=== PATIENT | female | born 1960 | race Caucasian/White ===

== ENCOUNTER 2017-10-17 17:04 | Emergency (ER) | payer MEDICARE, MEDICAID ==
[~2017-10-17 17:04] MED LIST changes: -DOCU-202 PO
[2017-10-17 17:05] VITALS: BP 130/90
--- NOTE | 2017-10-17 17:08 | ER Report ---
History and Physical Time Seen By MD: 17:01 Hx. of Stated Complaint: Patient reporting a migraine for 4 days. HPI/ROS CC: Migraine HPI: 57-year-old female well-known to the emergency Department with a past medical history of migraine myalgia, vasovagal syncope, depression, diabetes, morbid obesity, GERD, osteoarthritis, cellulitis, hypothyroid, patient presents to the emergency department with a migraine by 4 days per EMS. She states that her migraine is a 9 out of 10. She states that the only thing that relieves her migraine as Dilaudid and Phenergan. There are no bleeding factors. Activity makes it worse light makes it worse sound makes it worse spells makes it worse ROS: 12 point review of systems essentially negative other than what's mentioned in history of present illness. NURSES AND OLD MEDICAL RECORDS: Reviewed PMH: Reviewed SURGICAL HX: Reviewed FAMILY HX: Noncontributory SOCIAL HX: Patient denies illicit drugs lives at home. VITAL SIGNS: Reviewed CONSTITUTIONAL: 57-year-old female in minimal distress PHYSICAL EXAM: HEENT: Pupils equal round reactive to light and accommodate, Lips dry mucous membranes moist gums nonbleeding uvula midline and rises equally with phonation. NECK: Neck supple, thyroid not appreciated. Trachea midline and rises equally with phonation. CARDIAC: S1-S2 regular rate rhythm no murmurs rubs or gallops. LUNGS: Lungs clear bilaterally posteriorly in all barrios. Good air movement. ABDOMEN: Abdomen soft, nondistended, bowel sounds active in all 4 quadrants. MUSCULOSKELETAL: Strength 5 out of 5 x 4 extremities, no deformities noted. NEUROLOGIC: Patient alert and oriented by 3 Allergies: Coded Allergies: ketorolac (Verified Allergy, Intermediate, MADE SYMTOMS WORSE, 07/10/17) NSAIDS (Non-Steroidal Anti-Inflamma (Verified Allergy, Mild, Vomiting, ) butorphanol (Verified Allergy, Mild, facial burning, 07/10/17) morphine (Verified Allergy, Unknown, 07/10/17) phenazopyridine HCl (Verified Allergy, Unknown, 07/10/17) sumatriptan succinate (Verified Allergy, Unknown, 07/10/17) Home Meds Active Scripts Duloxetine Hcl (CYMBALTA) 60 Mg Capsule., 1 CAP PO QDAY, #90 CAP 1 Refill Prov:SHERON PEARL APRN [employer]-[facility] 10/10/17 Tizanidine Hcl (TIZANIDINE HCL) 4 Mg Tablet, 1 TAB PO TID Y for MUSCLE SPASMS, # 90 TAB 0 Refills Prov:SHERON PEARL APRN 10/10/17 Levothyroxine Sodium (LEVOTHYROXINE SODIUM) 25 Mcg Tablet, 1 TAB PO QDAY, #90 TAB 1 Refill Prov:SHERON PEARL APRN 10/10/17 Tramadol Hcl (TRAMADOL HCL) 50 Mg Tablet, 1 TAB PO Q4-6H Y for PAIN, #30 TAB 0 Refills Prov:ALEXANDRE CARSON MD 10/01/17 Insulin Glargine,Hum.rec.anlog (LANTUS SOLOSTAR) 100 Unit/1 Ml Insuln.pen, 40 UNIT SQ QAM, #1 BOX 10 Refills Prov:SHERON PEARL APRN 09/30/17 Gabapentin (GABAPENTIN) 600 Mg Tablet, 1 TAB PO BID, #180 TAB 2 Refills Prov:SHERON PEARL APRN 09/30/17 Quetiapine Fumarate (SEROQUEL) 200 Mg Tablet, 1 TAB PO QHS, #90 TAB 0 Refills Prov:SHERON PEARL APRN 08/18/17 Omeprazole (OMEPRAZOLE) 40 Mg Capsule.dr, 1 CAP PO BID, #60 CAP 3 Refills Take 1 capsule twice every day 1/2 hour before eating. Prov:ALEXANDRE CARSON MD 07/02/17 Blood Sugar Diagnostic (BLOOD GLUCOSE TEST STRIP) 1 Each Strip, 1 STRIP MC DAILY , #30 BOT 4 Refills Prov:SHERON PEARL APRN 06/02/17 Metformin Hcl (METFORMIN HCL) 500 Mg Tablet, 1 TAB PO BID, #180 TAB 1 Refill Prov:SHERON PEARL APRN 05/26/17 Spironolactone (SPIRONOLACTONE) 25 Mg Tablet, 1 TAB PO DAILY, #90 TAB 3 Refills Prov:SHERON PEARL APRN 03/27/17 Nystatin 100,000 Unit/Gm Top Powder (NYSTATIN 100,000 UNIT/GM TOP POWDER) 15 Gm Powder, 1 AN TP TID, #120 GM 1 Refill apply to perineum 3 times daily until resolved. Follow up if not improved in 2 weeks. Prov:SHERON PEARL APRN 02/21/17 Ondansetron (ZOFRAN ODT) 4 Mg Tab.rapdis, 1 TAB SL Q12H Y for nausea / migraine , #10 TAB.MARTIN 0 Refills Prov:SHERON PEARL APRN 11/01/16 Oxybutynin Chloride (OXYBUTYNIN CHLORIDE) 5 Mg Tablet, 1 TAB PO BID, #180 TAB 2 Refills Prov:SHERON PEARL APRN 09/11/16 Reported Medications Lamotrigine (LAMOTRIGINE) 100 Mg Tablet, 1 TAB PO DAILY 10/10/16 Topiramate (TOPIRAMATE) 100 Mg Tablet, 1 TAB PO DAILY 10/10/16 Psyllium Husk (Metamucil) 3.4 Gram/5.4 Gram Powder, 1 CAP PO QDAY 06/08/16 Discontinued Scripts Meloxicam (MELOXICAM) 7.5 Mg Tablet, 1 TAB PO BID, #60 TAB 11 Refills Prov:SHERON PEARL APRN 08/27/17 Hx Smoking: Yes (7-10 CIGS QDAY) Smoking Status: Current: Every Day Smoker Exposure to Second Hand Smoke?: Yes Hx Substance Use Disorder: Yes Hx Alcohol Use: No Constitutional Vital Sign - Last 24 Hours 10/17/17 17:05 Temp 97.8 Pulse 89 Resp 18 B/P (MAP) 130/90 Pulse Ox 93 O2 Delivery Room Air Medical Decision Making ED Course/Re-evaluation ED Course I reassessed again delivery note that the patient is initially reluctant on 07/2016 stating that we will not treat her chronic condition of migraines in the emergency department. Patient will plan and in agreement. She is to follow up with her PCP. Decision to Disposition Date: Oct 17, 2017 Decision to Disposition Time: 17:15 Depart Departure Latest Vital Signs Vital Signs Date Time Temp Pulse Resp B/P (MAP) Pulse Ox O2 Delivery O2 Flow Rate FiO2 10/17/17 17:05 97.8 89 18 130/90 93 Room Air Impression: Primary Impression: Drug-seeking behavior Condition: Condition Unchanged Disposition: HOME OR SELF-CARE Referrals: SHERON PEARL APRN (PCP) Patient Instructions: Migraine Headache (ED) Additional Instructions: Follow-up with regular physician for chronic pain medication. I am sorry but you have received a letter stating that we cannot continue to treat your chronic condition migraines. I and the staff wanted to thank you for allowing us to take care of your needs today in the emergency department at [facility]. We have tried to answer all of your questions and concerns. Please feel free to return to the emergency department for any further concerns or unanswered questions. KAYLEEN MCNULTY MD Oct 17, 2017 17:08
[2017-10-17] MEDS ORDERED: PROMETHAZINE 25 MG/ML 1 ML AMP IVP ONE (17:10)
[2017-10-17] MEDS ORDERED: HYDROmorphone(ER ONLY) 1 MG/ML IVP ONE (17:10)
== END 2017-10-17 17:29 | disposition home or self-care (01) ==
LOC: ER 17:10
DX: Z76.5 Malingerer [conscious simulation] (principal)
CPT/HCPCS: 99281

== ENCOUNTER → 2017-10-17 | Outpatient (CLI) | payer MEDICARE, MEDICAID ==
[~2017-10-17] MED LIST: ADV100/50 INH; ALB0.5 INH; AMOX-559 PO; ASP325 PO; ASP81 PO; ASPI81TA94 PO; ASPIRIN 81MG PO; BISA-229 PO; BLOO-1037 MC; BUTA1CAP4 PO; BUTA1TAB14 PO; CEP500 PO; CEPH250C37 PO; CEPH500C24 PO; CIT20 PO; CITA-139 PO; CITA-141 PO; CITA-156 PO; CLO10 MT; CYC10 PO; CYCL10TA29 PO; DIAZ-308 PO; DICL-192 PO; DICL100G3; DOCU-202 PO; DUL20 PO; DULO60CA56 PO; DULO60CA7; FENO48TA PO; FLU150 PO; FLUT9.9S; FUR20 PO; FUR40 PO; GAB300 PO; GABA-1 PO; GABA-503 PO; GABA-549 PO; GOLYTE PO; HYDR-3140 PO; HYDR-3250 PO; HYDR-4309 PO; IBU600 PO; IBUP600T22 PO; INSU100I30 SQ; KET10 PO; LAMO100T52 PO; LAMO25TA64 PO; LEVO25TA61 PO; LEVO500T83 PO; LOP2 PO; LOPE-111 PO; LOPE2CAP39 PO; LOR5 PO; LOR5/325 PO; LURA20TA PO; MECL-205 PO; MELO-150 PO; MELO-205 PO; MELO-207 PO; MET500 PO; METF-410 PO; METH4TAB66 PO; METO25 PO; MIR PO; MULT-27 PO; MULT-820 PO; MULT1CAP41 PO; MULTIVITAMIN; MYLL PO; NAPR500T75 PO; NIC10R IH; NICO1PAT86 TD; NICO1PAT87 TD; NIT4 SL; NOR25; NOR25 PO; NYST15PO4 TP; OLA5 PO; OLAN10TA19 PO; OMEP-125 PO; OMEP-218 PO; OMEP40CA48 PO; ONDA-153 SL; ONDA4TAB SL; ORP100 PO; OXYB5TAB86 PO; OXYC-763 PO; OXYC-865 PO; OXYC20TA86 PO; OXYGEN INH; PAN40 PO; PAR20 PO; PARO20TA4 PO; PENI-22 PO; PER PO; PHEN15CA69 PO; POTA2.5T7 PO; POTASSIUM SUPPLEMENT PO; POTT20 PO; PRO25 PO; PROTONIX PO; PSYL660P5 PO; QUE100 PO; QUET200T; QUET200T29 PO; RAM8 PO; SIM10 PO; SPI25 PO; SPIR25TA78 PO; SPIR50TA31 PO; SULF-198 PO; TIZA-128 PO; TOP100 PO; TOPI-28 PO; TOPI100T PO; TOPI100T92 PO; TOPI50TA99 PO; TRA50 PO; TRAM-420 PO; VAR1 PO; WALK1EAC MC; [UNRECOGNIZED DRUG - CODE]; [UNRECOGNIZED DRUG - CODE] PO; [UNRECOGNIZED DRUG - CODE] PO; [UNRECOGNIZED DRUG - REMARK]; [UNRECOGNIZED DRUG - SUPPLY]
== END ==
LOC: AMB 16:43
PROVIDERS: ATTEND Nurse Practitioner
DX: G43.909 Migraine, unspecified, not intractable, without status migrainosus (principal)
CPT/HCPCS: A0425; A0427

== ENCOUNTER 2017-10-23 00:38 | Observation (INO) | payer MEDICARE, MEDICAID ==
[2017-10-23] VITALS (11 sets, daily range): BP systolic 97–157; BP diastolic 53–129
[~2017-10-23] VITALS: Ht 167.6 cm; Wt 134.0 kg
[2017-10-23] MEDS ORDERED: NORMOSOL R SOLN(*) 1000 ML BAG 1,000 ML IV PRN (09:30)
[2017-10-23] MEDS ORDERED: FAMOTIDINE 20 MG TAB PO ONE (09:30)
[2017-10-23] MEDS ORDERED: LIDOCAINE/SOD BICARB 8.4% SYR ID ONE (09:30)
[2017-10-23] MEDS ORDERED: ceFAZolin(*) 1 GM VIAL 1 GM in NS(*) 0.9% 100 ML ADDVANT BAG 100 ML IVPB ONE (09:30)
[2017-10-23] MEDS ORDERED: ceFAZolin 1 GM VIAL IVP ONE (09:30)
[2017-10-23] MEDS ORDERED: fentaNYL CITR 250 MCG/5 ML AMP ONE (10:23)
[2017-10-23] MEDS ORDERED: PROPOFOL EMUL(*) 10MG/ML 20 ML 20 ML ONE (10:24)
[2017-10-23] MEDS ORDERED: LIDOCAINE 2% IV 100 MG/5ML SYR ONE (10:28)
[2017-10-23] MEDS ORDERED: fentaNYL CITR 100 MCG/2 ML AMP ONE ×4 (10:48→14:44)
[2017-10-23] MEDS ORDERED: ROPIVACAINE 0.5% 20 ML VIAL ONE (11:25)
[2017-10-23] MEDS ORDERED: MIDAZOLAM 2 MG/2 ML VIAL ONE (11:33)
[2017-10-23] MEDS ORDERED: ceFAZolin(*) 2GM/D5W 50ML 50 ML IVPB ONE (11:37)
[2017-10-23] MEDS ORDERED: ROCURONIUM BROM 10 MG/ML 10 ML ONE (11:45)
[2017-10-23] MEDS ORDERED: ONDANSETRON 4 MG/2 ML VIAL ONE (12:41)
[2017-10-23] MEDS ORDERED: SUGAMMADEX SOD 500 MG/5 ML SDV ONE (12:41)
[2017-10-23] MEDS ORDERED: NS(*) 0.9% 1000 ML BAG 1,000 ML IV PRN (14:22)
[2017-10-23] MEDS ORDERED: ONDANSETRON 4 MG/2 ML VIAL IVP PRN (14:25)
[2017-10-23] MEDS ORDERED: FLUSH 10 ML SYR IVP PRN (14:25)
[2017-10-23] MEDS ORDERED: MORPHINE 4 MG/ML SYR IVP PRN (14:25)
[2017-10-23] MEDS ORDERED: DEXAMETHASONE SOD 4 MG/ML VIAL ONE (14:38)
--- NOTE | 2017-10-23 14:42 | Post Operative Progress Note ---
Post Operative Progress Note Date: Oct 23, 2017 Time: 14:31 Surgeon: Denise Dictation number: [id number] Anesthesia: GETA by Dr. An Pre-Op Diagnosis: Symptomatic Large Umbilical Hernia Post-Op Diagnosis: LENORA Findings: C/W dx Procedure(s): Robotic umbilical hernia repair with mesh Robotic lysis of adhesions Specimen Removed:(May be N/A): None Complications: None Fluids: See anesthesia record Estimated Blood Loss: Minimal Date OP Note Dictated: Oct 23, 2017 Time OP Note Dictated: 14:33 ALEXANDRE CARSON MD Oct 23, 2017 14:42
[2017-10-23] MEDS: MORPHINE 4 MG/ML SYR IVP PRN (16:03)
[2017-10-23] MEDS: INSULIN HUM LISPRO 100 UN/ML 3 ML VIAL SUBQ PRN ×2 (17:29→21:17)
--- NOTE | 2017-10-23 18:41 | OPERATIVE REPORT 1 ---
EVENT DATE: October 23, 2017 SURGEON: Hosea Walker MD ANESTHESIOLOGIST: Heriberto An MD ANESTHESIA: General endotracheal anesthesia. PREOPERATIVE DIAGNOSIS Large symptomatic umbilical hernia. POSTOPERATIVE DIAGNOSIS Large symptomatic umbilical hernia. PROCEDURES PERFORMED 1. Robotic umbilical hernia repair with mesh. 2. Robotic lysis of adhesions. COMPLICATIONS None. CONDITION Stable. BLOOD LOSS Minimal. FINDINGS The patient had previous mesh in her ventral midline that appeared to be in good position without a recurrence of her hernia. She did have a just under 2 cm diameter fascial defect at the umbilicus which was a circular defect, and it contained only omental fat which was all reduced. No other abnormalities were found. SPECIMENS None. INDICATIONS This is a 57-year-old female who presented to my office with a bulge at her umbilicus. It was fairly large and painful. It was consistent with an umbilical hernia, and she was requesting to have it repaired. Due to her severe morbid obesity, we have elected to fix this robotically so as to try to minimize the risk of recurrence. DESCRIPTION OF PROCEDURE The patient was brought to the operating room and placed supine on the operating table. General endotracheal anesthesia was administered, and her abdomen was prepped and draped in a sterile fashion. A timeout was completed. I injected the left subcostal skin in the mid clavicular line with 0.5% ropivacaine plain. I made an 8 mm incision and then used the Veress needle with insufflation hooked up and running. I introduced the Veress needle into her abdominal cavity without any problems. I insufflated the abdomen to a pressure of 15 mmHg and then removed the Veress needle. I inserted a 5 mm zero- degree scope through an 8 mm optical trocar and inserted the trocar into the belly under direct visualization without any problems. Next, I inserted two more 8 mm ports in the left mid abdomen and the left lower quadrant. I then switched over to the robotic camera, docked the robot, and then after good positioning, I was able to insert a ProGrasp into the inferior 8 mm port, the camera into the middle 8 mm port, and hot scissors in the left upper quadrant port. After robot was docked and everything was positioned well, I scrubbed out and went to the console. I noticed adhesions all the way in her ventral midline to the mesh, which I took down easily with scissors. It was only fat, and no bowel. Once all the adhesions were taken down, I was able to pull the fat out of the umbilical hernia which took some doing because it was under resistance, jammed into it, and not reducible. After this was done, I divided the peritoneum on all sides of the umbilical defect and stripped the peritoneum away, including the hernia sac. I then measured the defect which was just under 2 cm in diameter. I then closed the fascial defect with running V-Loc sutures and then obtained a 6 cm round piece of omega-3 coated C-QUR mesh and put it into the abdomen. I had to upsize the left upper quadrant port to a 12 mm port in order to get the mesh into the abdomen, and then I deployed it so that the omega side was down, exposed to the abdominal cavity, and the mesh side was up against the abdominal wall. I then sewed it in circumferentially with V-Loc suture. It laid nice and flat and covered up the defect which was closed with the sutures with several centimeters of overlap on all sides. After this was done, I then removed the robotic instruments, scrubbed back in, and then used a suture passer to pass 0 Vicryl suture through the fascia in the left upper quadrant 12 mm port site and used a [id number] configuration of the suture. I tied this down with good reapproximation of the fascia. I then closed the skin at each port site with 4-0 Monocryl running subcuticular sutures. The skin was cleaned and dried, and Steri-Strips were applied, followed by sterile surgical dressings. The patient was awakened and extubated in the operating room and transported to the recovery room in stable condition having tolerated the procedure without any apparent problems. Because of her body habitus, I did place an extra, extra large abdominal binder around her abdomen to help bolster the repair while it is healing. GLENYS
[2017-10-23] MEDS: DOCUSATE SODIUM 100 MG CAP PO SCH (21:00)
[2017-10-23] MEDS ORDERED: QUEtiapine FUM 100 MG TAB PO SCH (21:00)
[2017-10-23] MEDS: metFORMIN HCL 500 MG TAB PO SCH (21:12)
[2017-10-23] MEDS: GABAPENTIN 300 MG CAP PO SCH (21:13)
[2017-10-23] MEDS: OXYBUTYNIN CHL 5 MG TAB PO SCH (21:13)
[2017-10-23] MEDS: NYSTATIN 100,000 U/GM PWD 15GM TP SCH (21:14)
[2017-10-24] MEDS: MORPHINE 4 MG/ML SYR IVP PRN (04:14)
[2017-10-24] MEDS ORDERED: LEVOTHYROXINE SOD 0.025 MG TAB PO SCH (06:00)
[2017-10-24 06:03] VITALS: BP 121/86
[2017-10-24] MEDS ORDERED: DOCU-202 PO (06:45)
[2017-10-24] MEDS ORDERED: PER PO (06:45)
--- NOTE | 2017-10-24 06:50 | Short(Outpt) Discharge Summary ---
Discharge Summary Reason for Hosp/Final Diag: (1) Umbilical hernia Status: Chronic Hospital Course & Plan: 10/24/17: POD#1 s/p robotic repair of large incarcerated [facility]. Doing well. Will d/c to home this morning. Departure Discharge to: Home, Self Care Discharge Instructions Home Meds Active Scripts Oxycodone/Acetaminophen (OXYCODONE/ACETAMINOPHEN 5MG/325 MG) 5 Mg/325 Mg Tab, 1- 2 TAB PO Q4H Y for MODERATE PAIN, #30 TAB 0 Refills Prov:ALEXANDRE CARSON MD 10/24/17 Docusate Sodium (DOCUSATE SODIUM) 100 Mg Capsule, 1 CAP PO BID, #30 CAPSULE 0 Refills Prov:ALEXANDRE CARSON MD 10/24/17 Duloxetine Hcl (CYMBALTA) 60 Mg Capsule.dr, 1 CAP PO QDAY, #90 CAP 1 Refill Prov:SHERON PEARL APRN 10/10/17 Tizanidine Hcl (TIZANIDINE HCL) 4 Mg Tablet, 1 TAB PO TID Y for MUSCLE SPASMS, # 90 TAB 0 Refills Prov:SHERON PEARL APRN 10/10/17 Levothyroxine Sodium (LEVOTHYROXINE SODIUM) 25 Mcg Tablet, 1 TAB PO QDAY, #90 TAB 1 Refill Prov:SHERON PEARL APRN-C 10/10/17 Tramadol Hcl (TRAMADOL HCL) 50 Mg Tablet, 1 TAB PO Q4-6H Y for PAIN, #30 TAB 0 Refills Prov:ALEXANDRE CARSON MD 10/01/17 Insulin Glargine,Hum.rec.anlog (LANTUS SOLOSTAR) 100 Unit/1 Ml Insuln.pen, 40 UNIT SQ QAM, #1 BOX 10 Refills Prov:SHERON PEARL APRN 09/30/17 Gabapentin (GABAPENTIN) 600 Mg Tablet, 1 TAB PO BID, #180 TAB 2 Refills Prov:SHERON PEARL APRN 09/30/17 Quetiapine Fumarate (SEROQUEL) 200 Mg Tablet, 1 TAB PO QHS, #90 TAB 0 Refills Prov:SHERON PEARL APRN 08/18/17 Omeprazole (OMEPRAZOLE) 40 Mg Capsule.dr, 1 CAP PO BID, #60 CAP 3 Refills Take 1 capsule twice every day 1/2 hour before eating. Prov:ALEXANDRE CARSON MD 07/02/17 Blood Sugar Diagnostic (BLOOD GLUCOSE TEST STRIP) 1 Each Strip, 1 STRIP MC DAILY , #30 BOT 4 Refills Prov:SHERON PEARL APRNP- 06/02/17 Metformin Hcl (METFORMIN HCL) 500 Mg Tablet, 1 TAB PO BID, #180 TAB 1 Refill Prov:SHERON PEARL APRNP- 05/26/17 Spironolactone (SPIRONOLACTONE) 25 Mg Tablet, 1 TAB PO DAILY, #90 TAB 3 Refills Prov:SHERON PEARL APRN- 03/27/17 Nystatin 100,000 Unit/Gm Top Powder (NYSTATIN 100,000 UNIT/GM TOP POWDER) 15 Gm Powder, 1 AN TP TID, #120 GM 1 Refill apply to perineum 3 times daily until resolved. Follow up if not improved in 2 weeks. Prov:SHERON PEARL APRNP- 02/21/17 Ondansetron (ZOFRAN ODT) 4 Mg Tab.rapdis, 1 TAB SL Q12H Y for nausea / migraine , #10 TAB.MARTIN 0 Refills Prov:SHERON PEARL APRN [facility]- 11/01/16 Oxybutynin Chloride (OXYBUTYNIN CHLORIDE) 5 Mg Tablet, 1 TAB PO BID, #180 TAB 2 Refills Prov:SHERON PEARL APRNP- 09/11/16 Reported Medications Lamotrigine (LAMOTRIGINE) 100 Mg Tablet, 1 TAB PO DAILY 10/10/16 Topiramate (TOPIRAMATE) 100 Mg Tablet, 1 TAB PO DAILY 10/10/16 Psyllium Husk (Metamucil) 3.4 Gram/5.4 Gram Powder, 1 CAP PO QDAY 06/08/16 Discontinued Scripts Meloxicam (MELOXICAM) 7.5 Mg Tablet, 1 TAB PO BID, #60 TAB 11 Refills Prov:SHERON PEARL APRNPLuis Antonio 08/27/17 Follow up Referrals: General Surgery - 11/10/17 @ Surgery, General with Alexandre Carson Md You have a follow up appointment scheduled with Dr. Carson on 11/10/17, at 11:00am. Diet: Diabetic Activity: No Heavy Lifting, No Exertion Special Instructions: You may remove the white surgical dressings on 10/25/17, then you can shower. After showering, leave the incisions open to air but leave the steristrips in place until they fall off on their own. Do not immerse the incisions for 2 weeks. Avoid any activity that involves straining or lifting more than 10 pounds for 6 weeks after surgery (no lifting more than 10 pounds, no straining until Tuesday, December 05, 2017). Problem Qualifiers (1) Umbilical hernia: Obstruction and gangrene presence: without obstruction or gangrene Qualified Codes: K42.9 - Umbilical hernia without obstruction or gangrene ALEXANDRE CARSON MD Oct 24, 2017 06:50
[2017-10-24] MEDS ORDERED: ENOXAPARIN 40 MG/0.4ML SYR SC SCH (09:00)
[2017-10-24] MEDS ORDERED: TOPIRAMATE 100 MG TAB PO SCH (09:00)
[2017-10-24] MEDS ORDERED: SPIRONOLACTONE 25 MG TAB PO SCH (09:00)
[2017-10-24] MEDS ORDERED: INSULIN GLARGINE 100 U/ML 3 ML PEN SQ SCH (09:00)
[2017-10-24] MEDS ORDERED: PANTOPRAZOLE SOD 40 MG TABEC PO SCH (09:00)
[2017-10-24] MEDS ORDERED: lamoTRIgine 100 MG TAB PO SCH (09:00)
[2017-10-24] MEDS ORDERED: DULoxetine HCL 30 MG CAPCR PO SCH (09:00)
[2017-10-24] MEDS: DOCUSATE SODIUM 100 MG CAP PO SCH (09:04)
[2017-10-24] MEDS: GABAPENTIN 300 MG CAP PO SCH (09:04)
[2017-10-24] MEDS: metFORMIN HCL 500 MG TAB PO SCH (09:04)
[2017-10-24] MEDS: OXYBUTYNIN CHL 5 MG TAB PO SCH (09:04)
[2017-10-24] MEDS: NYSTATIN 100,000 U/GM PWD 15GM TP SCH (09:06)
== END 2017-10-24 06:44 | disposition home or self-care (01) ==
LOC: OR 00:38 → MED 15:40
PROVIDERS: ADMIT Surgery; ATTEND Surgery
DX: K42.9 Umbilical hernia without obstruction or gangrene (principal); E11.9 Type 2 diabetes mellitus without complications
CPT/HCPCS: 36416; 49652; 82948; 94667; 96372; A9270; C1781; G0378; J1650; J1815; J2001; J2250; J2270; J2405; J2704; J2795; J3010; S2900; J0690; J1100

== ENCOUNTER 2017-12-10 09:00 | Outpatient (RCR) | payer MEDICARE, MEDICAID ==
--- NOTE | 2017-12-03 10:35 | PT INITIAL EVALUATION ---
MEDICAL DIAGNOSIS: M25.551 R hip pain TREATMENT DIAGNOSIS: Same DATE OF ONSET: 05/20/18 SUBJECTIVE: Lamonte Erickson presents to PT for insidious onset of R hip pain with standing five to ten minutes. She hopes to move apartments soon and would like to be able to move without R hip medical interventions. Hip FOTO 64% impairment. Pain location is R anterior hip and described as ache. Pain scale is 3 on a ten point pain scale. Pain is worse with standing 5-10 minutes ( anterior hip pain 8/10), walking less than a block, unable to use a flight of stairs, ache at night and better with gentle movement. 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 OCCUPATION: Disabled, lives in single level apartment. OBJECTIVE: Posture: WB L>R LE, hyperlipidemia-type hips, LE's ER 30 degrees. ROM: PROM R hip IR 20 deg., joint pain, ER 40 deg., extension -20 deg., adduction 30 deg., joint pain, abduction 40 degrees, groin pull. Strength: Functional strength: squat to 25 degrees, hip pain limited. Special Tests: Positive R C sign and BRIAN. Tight R hip flexor, IT band and hamstrings. Gait: Leans more R in stance than L. Balance: Double limb support. ASSESSMENT: Lamonte Erickson presents with signs and symptoms of R hip OA as well as hip tightness, altered ADL standing tolerance. She's started with HEP of hip stretching, which she did well with. Short Term Goals 4 weeks: Lamonte stands 15 min. before R hip pain. 6 weeks: Lamonte ambulates 1 block, stands 20 min. without R hip pain. Patient's Goals Avoid medical (surgical) intervention to R hip. PLAN: Patient to be seen for Strengthening/condition, E-stim, Ice/Heat, Ice/ Heat, Range of Motion/Stretching, Gait Trg/Balance Trg, Home Exercise Program for 2x/Week for 6 Weeks Thank you for this referral. If you have any questions, comments, or concerns about this report or plan, please contact me at . MTDD
[~2017-12-10 09:00] MED LIST changes: +DOCU-202 PO; +INSU100I5 SUBQ
--- NOTE | 2017-12-22 11:58 | PT PLAN OF CARE ---
Physician: DALE GarciaP-C Patient is being seen: 2x/week Therapist: Gia Amaya, JUANITO Medical Diagnosis: M25.551 R hip pain Treatment Diagnosis: Same Date of Onset: 05/20/18 Date of Initial Evaluation: 12/03/17 Date patient was last seen: 12/22/17 Number of treatments: 4 Number of cancellations/No shows: 2 INTERVENTIONS: Strengthening/condition Range of Motion Stretching E-stim Home Exercise Program GOALS: 4 weeks: Lamonte stands 15 min. before R hip pain. not met 6 weeks: Lamonte ambulates 1 block, stands 20 min. without R hip pain. not met PATIENT'S GOAL: Avoid medical (surgical) intervention to R hip. not met Patient Compliance: Good Prognosis: Good Reasons for discontinuing therapy: S: Lamonte was distraught today today because she had to give up her cat, hasn' t been taking her morning medicines, felt suicidal and is now in [facility]. She rated R hip pain 10/10. Her R hip pain was worsening with exercise and e-stim wasn't effective due to her weight. Posture: WB L>R LE, hyperlipidemia type hips, LE's ER 30 degrees. ROM: PROM R hip IR 20 deg., joint pain, ER lessened to 30 deg., extension still -20 degrees. Strength: Functional strength: squat to 25 degrees, hip pain limited. Gait: Lamonte still leans her trunk R in R stance, doesn't lean L in L stance now. Mobility: Worse sit to semi-recumbent due to R hip pain. A/P: Lamonte Erickson didn't tolerate hip exercises and has worsening hip pain. As she hasn't improved with PT, I'll DC PT. I feel an orthopedic consult may be warranted. Thank you. GLENYS
[2018-01-01] MEDS ORDERED: METF-410 PO (13:16)
== END 2017-12-10 18:00 | disposition home or self-care (01) ==
LOC: PT 09:00
PROVIDERS: ATTEND Nurse Practitioner Family
DX: M25.551 Pain in right hip (principal); E11.9 Type 2 diabetes mellitus without complications; R20.2 Paresthesia of skin; Z96.652 Presence of left artificial knee joint
CPT/HCPCS: 97110; 97162; G0283

== ENCOUNTER 2017-12-22 09:36 | Emergency (ER) | payer MEDICARE, MEDICAID ==
--- NOTE | 2017-12-22 10:32 | ER Report ---
History and Physical Time Seen By MD: 10:16 Hx. of Stated Complaint: PT WANTS TO BE ADMITTED TO [facility] FOR SI, SEVERE R HIP PAIN AND COUGH HPI/ROS CHIEF COMPLAINT: Right hip pain, suicidality HISTORY OF PRESENT ILLNESS: She complains of right hip pain, it is chronic, it is been worsening this past week and it feels hard to bear weight she is scared she is going to have a fracture. Initially she was brought to the ER from physical therapy because she said she was suicidal but she says she is not suicidal today we will have psych see her here. Denies drugs or alcohol this time. Admits to prior narcotic seeking behavior. She says this time her hip really hurts. She does admit she has a letter stating she is not allowed received narcotics in the ER. She did not want Toradol she says he had about a reaction to that in the past. REVIEW OF SYSTEMS: Respiratory: No cough, no dyspnea. Cardiovascular: No chest pain, no palpitations. Gastrointestinal: No vomiting, no abdominal pain. Musculoskeletal: No back pain. Allergies: Coded Allergies: ketorolac (Verified Allergy, Intermediate, MADE SYMTOMS WORSE, 12/22/17) NSAIDS (Non-Steroidal Anti-Inflamma (Verified Allergy, Mild, Vomiting, 12/22) butorphanol (Verified Allergy, Mild, facial burning, 12/22/17) morphine (Verified Allergy, Unknown, 12/22/17) phenazopyridine HCl (Verified Allergy, Unknown, 12/22/17) sumatriptan succinate (Verified Allergy, Unknown, 12/22/17) Home Meds Active Scripts Tramadol Hcl (TRAMADOL HCL) 50 Mg Tablet, 1 TAB PO TID Y for PAIN, #30 TAB 0 Refills Prov:SHERON PEARL APRN-C 11/27/17 Insulin Detemir (Levemir Flextouch) 100 Unit/1 Ml Insuln.pen, 40 UNITS SUBQ DAILY, #1 BOX 10 Refills Prov:SHERON PEARL APRN-C 11/17/17 Duloxetine Hcl (CYMBALTA) 60 Mg Capsule.dr, 1 CAP PO QDAY, #90 CAP 1 Refill Prov:SHERON PEARL APRN-C 10/10/17 Tizanidine Hcl (TIZANIDINE HCL) 4 Mg Tablet, 1 TAB PO TID Y for MUSCLE SPASMS, # 90 TAB 0 Refills Prov:SHERON PEARL APRN-C 10/10/17 Levothyroxine Sodium (LEVOTHYROXINE SODIUM) 25 Mcg Tablet, 1 TAB PO QDAY, #90 TAB 1 Refill Prov:SHERON PEARL APRN [employer] 10/10/17 Gabapentin (GABAPENTIN) 600 Mg Tablet, 1 TAB PO BID, #180 TAB 2 Refills Prov:SHERON PEARL APRNP-C 09/30/17 Omeprazole (OMEPRAZOLE) 40 Mg Capsule.dr, 1 CAP PO BID, #60 CAP 3 Refills Take 1 capsule twice every day 1/2 hour before eating. Prov:ALEXANDRE CARSON MD 07/02/17 Blood Sugar Diagnostic (BLOOD GLUCOSE TEST STRIP) 1 Each Strip, 1 STRIP MC DAILY , #30 BOT 4 Refills Prov:SHERON PEARL APRNPLuis Antonio 06/02/17 Metformin Hcl (METFORMIN HCL) 500 Mg Tablet, 1 TAB PO BID, #180 TAB 1 Refill Prov:SHERON PEARL APRN [facility] 05/26/17 Spironolactone (SPIRONOLACTONE) 25 Mg Tablet, 1 TAB PO DAILY, #90 TAB 3 Refills Prov:SHERON PEARL APRNP-C 03/27/17 Nystatin 100,000 Unit/Gm Top Powder (NYSTATIN 100,000 UNIT/GM TOP POWDER) 15 Gm Powder, 1 AN TP TID, #120 GM 1 Refill apply to perineum 3 times daily until resolved. Follow up if not improved in 2 weeks. Prov:SHERON PEARL APRNP-C 02/21/17 Ondansetron (ZOFRAN ODT) 4 Mg Tab.rapdis, 1 TAB SL Q12H Y for nausea / migraine , #10 TAB.MARTIN 0 Refills Prov:SHERON PEARL APRNP-C 11/01/16 Oxybutynin Chloride (OXYBUTYNIN CHLORIDE) 5 Mg Tablet, 1 TAB PO BID, #180 TAB 2 Refills Prov:SHERON PEARL APRNPLuis AntonioC 09/11/16 Reported Medications Lamotrigine (LAMOTRIGINE) 100 Mg Tablet, 1 TAB PO DAILY 10/10/16 Topiramate (TOPIRAMATE) 100 Mg Tablet, 1 TAB PO DAILY 10/10/16 Discontinued Reported Medications Psyllium Husk (Metamucil) 3.4 Gram/5.4 Gram Powder, 1 CAP PO QDAY 06/08/16 Discontinued Scripts Quetiapine Fumarate (SEROQUEL) 200 Mg Tablet, 1 TAB PO QHS, #90 TAB 1 Refill Prov:SHERON PEARL APRN [employer] 11/07/17 Docusate Sodium (DOCUSATE SODIUM) 100 Mg Capsule, 1 CAP PO BID, #30 CAPSULE 0 Refills Prov:ALEXANDRE CARSON MD 10/24/17 Hx Smoking: Yes (7-10 CIGS QDAY) Smoking Status: Current: Every Day Smoker Exposure to Second Hand Smoke?: Yes Hx Substance Use Disorder: Yes Hx Alcohol Use: No Constitutional Vital Sign - Last 24 Hours 12/22/17 12/22/17 12/22/17 12/22/17 09:36 09:49 09:50 09:51 Temp 98.6 Pulse ??? 90 80 Resp 18 B/P (MAP) 135/37 135/37 (69) Pulse Ox 90 91 O2 Delivery Room Air 12/22/17 12/22/17 12/22/17 12/22/17 10:06 10:15 10:21 10:22 Pulse 87 93 B/P (MAP) 117/69 (85) Pulse Ox 87 94 O2 Flow Rate 2.0 Physical Exam General Appearance: The patient is alert, has no immediate need for airway protection and no current signs of toxicity. No acute distress Eyes: Pupils equal and round no injection. Respiratory: Chest is non tender, lungs are clear to auscultation. Cardiac: regular rate and rhythm [ ] Gastrointestinal: Abdomen is soft and non tender, no masses, bowel sounds normal. Musculoskeletal: Neck: Neck is supple and non tender. Extremities have full range of motion and are non tender. She is tender laterally and anteriorly over the hip. No tenderness with distraction Skin: No rashes or lesions. [ ] DIFFERENTIAL DIAGNOSIS: After history and physical exam differential diagnosis was considered for borderline personality disorder histrionic personality disorder suicidal threats suicidal gestures suicidal statements without clear intent or plan Medical Decision Making Data Points Result Diagram: 12/22/17 1040 12/22/17 1040 Laboratory Hematology Test 12/22/17 10:40 Red Blood Count 5.69 M/uL (4.17-5.56) Mean Corpuscular Volume 89.7 fL (80.0-96.0) Mean Corpuscular Hemoglobin 29.8 pg (26.0-33.0) Mean Corpuscular Hemoglobin Concent 33.2 g/dL (32.0-36.0) Red Cell Distribution Width 15.4 % (11.5-14.5) Mean Platelet Volume 8.7 fL (7.2-11.1) Neutrophils (%) (Auto) 78.6 % (39.4-72.5) Lymphocytes (%) (Auto) 13.9 % (17.6-49.6) Monocytes (%) (Auto) 4.5 % (4.1-12.4) Eosinophils (%) (Auto) 2.1 % (0.4-6.7) Basophils (%) (Auto) 0.9 % (0.3-1.4) Nucleated RBC Relative Count (auto) 0.0 /100WBC Neutrophils # (Auto) 5.8 K/uL (2.0-7.4) Lymphocytes # (Auto) 1.0 K/uL (1.3-3.6) Monocytes # (Auto) 0.3 K/uL (0.3-1.0) Eosinophils # (Auto) 0.2 K/uL (0.0-0.5) Basophils # (Auto) 0.1 K/uL (0.0-0.1) Nucleated RBC Absolute Count (auto) 0.00 K/uL Sodium Level 141 mmol/L (137-145) Potassium Level 3.7 mmol/L (3.5-5.0) Chloride Level 105 mmol/L (98-107) Carbon Dioxide Level 25 mmol/L (22-31) Blood Urea Nitrogen 17 mg/dl (7-18) Creatinine 1.00 mg/dl (0.52-1.04) Glomerular Filtration Rate Calc 57.1 Random Glucose 232 mg/dl (75-110) Calcium Level 9.3 mg/dl (8.4-10.2) Total Bilirubin 0.5 mg/dl (0.2-1.3) Aspartate Amino Transf (AST/SGOT) 23 U/L (0-35) Alanine Aminotransferase (ALT/SGPT) 26 U/L (0-56) Alkaline Phosphatase 111 U/L (0-126) Total Protein 7.3 gm/dl (6.3-8.2) Albumin 4.0 g/dl (3.5-5.0) Lipase 126 U/L (23-300) Salicylates Level < 10 mg/L Salicylate Last Dose Date unknown Acetaminophen Level < 10 ug/ml Serum Alcohol < 10 mg/dl Chemistry Test 12/22/17 10:40 White Blood Count 7.4 k/uL (4.5-11.0) Red Blood Count 5.69 M/uL (4.17-5.56) Hemoglobin 17.0 g/dL (12.0-16.0) Hematocrit 51.0 % (34.0-47.0) Mean Corpuscular Volume 89.7 fL (80.0-96.0) Mean Corpuscular Hemoglobin 29.8 pg (26.0-33.0) Mean Corpuscular Hemoglobin Concent 33.2 g/dL (32.0-36.0) Red Cell Distribution Width 15.4 % (11.5-14.5) Platelet Count 174 K/uL (150-450) Mean Platelet Volume 8.7 fL (7.2-11.1) Neutrophils (%) (Auto) 78.6 % (39.4-72.5) Lymphocytes (%) (Auto) 13.9 % (17.6-49.6) Monocytes (%) (Auto) 4.5 % (4.1-12.4) Eosinophils (%) (Auto) 2.1 % (0.4-6.7) Basophils (%) (Auto) 0.9 % (0.3-1.4) Nucleated RBC Relative Count (auto) 0.0 /100WBC Neutrophils # (Auto) 5.8 K/uL (2.0-7.4) Lymphocytes # (Auto) 1.0 K/uL (1.3-3.6) Monocytes # (Auto) 0.3 K/uL (0.3-1.0) Eosinophils # (Auto) 0.2 K/uL (0.0-0.5) Basophils # (Auto) 0.1 K/uL (0.0-0.1) Nucleated RBC Absolute Count (auto) 0.00 K/uL Glomerular Filtration Rate Calc 57.1 Calcium Level 9.3 mg/dl (8.4-10.2) Total Bilirubin 0.5 mg/dl (0.2-1.3) Aspartate Amino Transf (AST/SGOT) 23 U/L (0-35) Alanine Aminotransferase (ALT/SGPT) 26 U/L (0-56) Alkaline Phosphatase 111 U/L (0-126) Total Protein 7.3 gm/dl (6.3-8.2) Albumin 4.0 g/dl (3.5-5.0) Lipase 126 U/L (23-300) Salicylates Level < 10 mg/L Salicylate Last Dose Date unknown Acetaminophen Level < 10 ug/ml Serum Alcohol < 10 mg/dl Toxicology Test 12/22/17 10:40 Salicylates Level < 10 mg/L Salicylate Last Dose Date unknown Acetaminophen Level < 10 ug/ml Serum Alcohol < 10 mg/dl ED Course/Re-evaluation ED Course Patient was cleared for discharge by psychiatry after shamika for safety and proper outpatient plan in place including social media content specialist visit to her home. She contracts for safety with [facility] as well. She does not appear to be acutely suicidal in any way shape or form at this time. Her medical workup showed mild osteoarthritis of the right hip we discussed treatment options follow-up and reasons to return. Decision to Disposition Date: Dec 22, 2017 Decision to Disposition Time: 12:08 Depart Departure Latest Vital Signs Vital Signs Date Time Temp Pulse Resp B/P (MAP) Pulse Ox O2 Delivery O2 Flow Rate FiO2 12/22/17 10:22 2.0 12/22/17 10:21 93 94 12/22/17 10:15 117/69 (85) 12/22/17 09:49 98.6 18 Room Air Impression: Primary Impression: Osteoarthritis of right hip Condition: Improved Disposition: HOME OR SELF-CARE Referrals: SHERON PEARL APRN [employer] (PCP) New Scripts Diclofenac Sodium (DICLOFENAC SODIUM) 25 Mg Tablet. 25 MG PO TID for PAIN for 10 Days, #30 TAB Prov: VICTORIA BYNUM MD 12/22/17 Patient Instructions: Osteoarthritis (ED) Problem Qualifiers Primary Impression: Osteoarthritis of right hip Osteoarthritis type: unspecified Qualified Codes: M16.11 - Unilateral primary osteoarthritis, right hip VICTORIA BYNUM MD Dec 22, 2017 10:32
[2017-12-22 10:51] LABS: PLATELET COUNT, AUTOMATED 174 K/uL (150-450)
--- NOTE | 2017-12-22 11:54 | RADIOLOGY IMAGING REPORT ---
FACILITY: [facility] PATIENT NAME: Lamonte Erickson : 1960 MR: [id number] V: [id number] EXAM DATE: ORDERING PHYSICIAN: VICTORIA BYNUM TECHNOLOGIST: Location: [facility] Patient: Lamonte Erickson : 1960 Visit/Account:[id number] Date of Sevice: 12/22/2017 CT of the right hip without contrast Indication: Hip pain. Osteoarthritis. Comparison: None available Technique: Axial CT images were obtained through the right hip. Reformatted coronal and sagittal imag es were reviewed. One of the following dose optimization techniques was utilized in the performance of this exam: Autom ated exposure control; adjustment of the mA and/or kV according to the patient's size; or use of an i terative reconstruction technique. Specific details can be referenced in the facility's radiology C T exam operational policy. Findings: There is patient motion on this examination. Given the limitations of the patient motion, no discrete fracture line is identified. There are mild underlying changes of osteoarthritis present. Nonuniform joint space narrowing is seen superolaterally with small osteophytes. No definitive joint effusion. No fluid collection or hematoma within the soft tissues. No focal muscl e abnormality is seen on this noncontrast exam. There are degenerative changes at the pubic symphysis. There has been previous hysterectomy. No free pelvic fluid. No inguinal adenopathy identified. IMPRESSION: 1. Mild right hip joint osteoarthritis. 2. Moderate degenerative changes at the pubic symphysis. 3. Changes of prior hysterectomy. Report Dictated By: Ray Hill at 12/22/2017 11:43 AM Report E-Signed By: Ray Hill at 12/22/2017 11:49 AM [id number]
[2017-12-22] MEDS ORDERED: DICL25TA9 PO (12:11)
[2017-12-22 12:15] VITALS: BP 119/76
[2018-01-01] MEDS ORDERED: METF-410 PO (13:16)
== END 2017-12-22 12:26 | disposition home or self-care (01) ==
LOC: ER 09:55
DX: M16.11 Unilateral primary osteoarthritis, right hip (principal); R45.851 Suicidal ideations
CPT/HCPCS: 36415; 73700; 83690; 84443; 85025; 99283; G0480; 80320; 80329; 82040; 82247; 82310; 82374; 82435; 82565; 82947; 84075; 84132; 84155; 84295; 84450; 84460; 84520

== ENCOUNTER → 2018-01-27 | Outpatient (CLI) | payer MEDICARE, MEDICAID ==
[~2018-01-27] MED LIST changes: +CEPH-13 PO; +DICL25TA9 PO
[2018-01-27 13:34] LABS: PLATELET COUNT, AUTOMATED 194 K/uL (150-450)
== END ==
LOC: LAB 13:20
PROVIDERS: ATTEND Nurse Practitioner Family
DX: R30.0 Dysuria (principal); B96.20 Unspecified Escherichia coli [E. coli] as the cause of diseases classified elsewhere; I10 Essential (primary) hypertension; E03.9 Hypothyroidism, unspecified; E11.9 Type 2 diabetes mellitus without complications
CPT/HCPCS: 36415; 81001; 82040; 82247; 82310; 82374; 82435; 82565; 82947; 83036; 84075; 84132; 84155; 84295; 84443; 84450; 84460; 84520; 85025; 87077; 87088; 87186

== ENCOUNTER 2018-02-23 19:48 | Emergency (ER) | payer MEDICARE, MEDICAID ==
[~2018-02-23 19:48] MED LIST changes: -DICL100G39 TOP; -[UNRECOGNIZED DRUG - OTHER]
[2018-02-23] MEDS ORDERED: KETAMINE HCL 500 MG/5 ML VIAL IVP ONE (20:20)
[2018-02-23] MEDS ORDERED: ACETAMINOPHEN(*)1000 MG/100 ML 100 ML IVPB ONE (20:20)
[2018-02-23 21:00] VITALS: BP 134/85
--- NOTE | 2018-02-23 21:06 | ER Report ---
History and Physical Time Seen By MD: 19:55 Hx. of Stated Complaint: Pt reporting migraine for four days pain relievers not effective. Pt also is reporting photophobia. HPI/ROS CHIEF COMPLAINT: Headache HISTORY OF PRESENT ILLNESS: Patient is a 57-year-old female with long history of migraines who presents complaining of 2 or more weeks of headache. Per nurses she said 4 days. For me she said she's had about 2 weeks of the headache. But now she's developed a superimposed migraine. She states the pain has been very severe. She states she was planning to see her doctor today but her doctor was out of town and therefore she does not have an appointment until the . She has been treating at home with heat and ice and resting. She has been taking all of her usual medications. She has not taken additional analgesics at home. She states this is somewhat different than her typical migraine in that she feels like she has pain in Turn her neck to the left. She has no pain with turning it to the right or with flexion and extension. She denies any headache. She denies any fever. She has not had any visual changes. Patient states she has a history of "being a drug addict". She notes that she cannot receive narcotics. But she states that her pain got worse and that prompted her to call the ambulance. REVIEW OF SYSTEMS: Gen.: No recent fevers chills. No recent trauma Eyes: She has a history of diplopia and wandering left eye. Notes no acute vision changes ENT: States that she stuck a bead in her left ear 2 or 3 years ago. Doesn't know if it still there. But has no complaints with her ears. Denies sore throat Neck: Notes increased headache with turning her head to the left. Notes no pain or tightness in her neck with flexion and extension or turning to the right Respiratory: Has had a slight persisting cough post URI couple months ago but no shortness of breath or worsening Cardiovascular: Negative Gastrointestinal: Negative Musculoskeletal: Could've other than history of present illness Neurologic: As per history of present illness with regards to the headache. Otherwise negative Remainder of the 14 system rev: Yes Allergies: Coded Allergies: ketorolac (Verified Allergy, Intermediate, MADE SYMTOMS WORSE, 12/22/17) NSAIDS (Non-Steroidal Anti-Inflamma (Verified Allergy, Mild, Vomiting, 12/22) butorphanol (Verified Allergy, Mild, facial burning, 12/22/17) morphine (Verified Allergy, Unknown, 12/22/17) phenazopyridine HCl (Verified Allergy, Unknown, 12/22/17) sumatriptan succinate (Verified Allergy, Unknown, 12/22/17) Home Meds Active Scripts Metformin Hcl (METFORMIN HCL) 500 Mg Tablet, 1 TAB PO BID, #180 TAB 0 Refills Prov:SHERON PEARL APRN-C 01/01/18 Diclofenac Sodium (DICLOFENAC SODIUM) 25 Mg Tablet.dr, 25 MG PO TID for PAIN for 10 Days, #30 TAB Prov:VICTORIA BYNUM MD 12/22/17 Tramadol Hcl (TRAMADOL HCL) 50 Mg Tablet, 1 TAB PO TID Y for PAIN, #30 TAB 0 Refills Prov:SHERON PEARL APRNP-Joanne 11/27/17 Insulin Detemir 100 UN/ML PEN (Levemir Flextouch) 100 Unit/1 Ml Insuln.pen, 40 UNITS SUBQ DAILY, #1 BOX 10 Refills Prov:SHERON PEARL APRNP- 11/17/17 Duloxetine Hcl (CYMBALTA) 60 Mg Capsule., 1 CAP PO QDAY, #90 CAP 1 Refill Prov:SHERON PEARL APRN- 10/10/17 Tizanidine Hcl (TIZANIDINE HCL) 4 Mg Tablet, 1 TAB PO TID Y for MUSCLE SPASMS, # 90 TAB 0 Refills Prov:SHERON PEARL APRN-C 10/10/17 Levothyroxine Sodium (LEVOTHYROXINE SODIUM) 25 Mcg Tablet, 1 TAB PO QDAY, #90 TAB 1 Refill Prov:SHERON PEARL APRNP-C 10/10/17 Gabapentin (GABAPENTIN) 600 Mg Tablet, 1 TAB PO BID, #180 TAB 2 Refills Prov:SHERON PEARL APRNP-C 09/30/17 Omeprazole (OMEPRAZOLE) 40 Mg Capsule., 1 CAP PO BID, #60 CAP 3 Refills Take 1 capsule twice every day 1/2 hour before eating. Prov:ALEXANDRE CARSON MD 07/02/17 Blood Sugar Diagnostic (BLOOD GLUCOSE TEST STRIP) 1 Each Strip, 1 STRIP MC DAILY , #30 BOT 4 Refills Prov:SHERON PEARL TAMIKO HUNTERP- 06/02/17 Spironolactone (SPIRONOLACTONE) 25 Mg Tablet, 1 TAB PO DAILY, #90 TAB 3 Refills Prov:AIDEN PEARLKATELIN HUNTERP- 03/27/17 Nystatin 100,000 Unit/Gm Top Powder (NYSTATIN 100,000 UNIT/GM TOP POWDER) 15 Gm Powder, 1 AN TP TID, #120 GM 1 Refill apply to perineum 3 times daily until resolved. Follow up if not improved in 2 weeks. Prov:SHERON PEARL APRN-Joanne 02/21/17 Ondansetron (ZOFRAN ODT) 4 Mg Tab.rapdis, 1 TAB SL Q12H Y for nausea / migraine , #10 TAB.MARTIN 0 Refills Prov:SHERON PEARL APRNP-Joanne 11/01/16 Oxybutynin Chloride (OXYBUTYNIN CHLORIDE) 5 Mg Tablet, 1 TAB PO BID, #180 TAB 2 Refills Prov:ISAIAS-SHERON MILLER APRNP- 09/11/16 Reported Medications Lamotrigine (LAMOTRIGINE) 100 Mg Tablet, 1 TAB PO DAILY 10/10/16 Topiramate (TOPIRAMATE) 100 Mg Tablet, 1 TAB PO DAILY 10/10/16 Discontinued Scripts Ciprofloxacin 250 Mg (CIPROFLOXACIN 250 MG) 250 Mg Tablet, 1 TAB PO BID, #6 TAB 0 Refills Do Not take tizanidine, ondansetron or duloxetine while taking this medication. Prov:SHERON PEARL APRN 01/30/18 Hx Smoking: Yes (7-10 CIGS QDAY) Smoking Status: Current: Every Day Smoker Exposure to Second Hand Smoke?: Yes Hx Substance Use Disorder: Yes Hx Alcohol Use: No Constitutional Vital Sign - Last 24 Hours 02/23/18 02/23/18 02/23/18 02/23/18 19:53 19:57 20:00 20:03 Temp 99.5 Pulse 84 83 Resp 16 B/P (MAP) 128/82 128/82 (97) 112/76 (88) Pulse Ox 90 90 O2 Delivery Room Air 02/23/18 02/23/18 02/23/18 02/23/18 20:15 20:18 20:45 20:48 Pulse 81 83 B/P (MAP) 122/77 (92) 118/78 (91) Pulse Ox 88 02/23/18 02/23/18 02/23/18 02/23/18 20:55 21:00 21:03 21:08 Temp 99.5 Pulse 84 82 78 Resp 16 B/P (MAP) 128/82 (97) 134/85 (101) Pulse Ox 90 91 89 O2 Delivery Room Air Physical Exam General Appearance: Patient is alert and appropriate. She has no impending signs of deterioration. She claims to be uncomfortable but does not appear to be in acute distress Eyes: Pupils equal and round no injection. Some amblyopia the left eye is noted. Ears: I do not see evidence of foreign body in the canal. Tympanic membranes are normal Oropharynx: No erythema or exudate. Mucous membranes are moist Neck: Patient complains of some subjective tenderness at the base of the skull at midline and just right of midline to palpation. She does have good range of motion including voluntary and requested turning of the head to the left which she felt subjectively by history was causing her pain. She is nontender of her remainder of central C-spine. She has no meningeal signs. She has good flexion and extension of the neck. Respiratory: Chest is non tender, lungs are clear to auscultation. Cardiac: regular rate and rhythm Gastrointestinal: Abdomen is soft and non tender, no masses, bowel sounds normal. Musculoskeletal: Extremities have full range of motion and are non tender. Skin: No rashes or lesions. Neurologic: Patient is alert oriented and appropriate. Cranial nerves II through XII are grossly intact with the exception of the amblyopia noted of the left eye. Sensorium appears appropriate. She has full range of motion of extremities. Negative Romberg. Good [id number]. There are no focal or cerebellar findings noted. Differential diagnosis for headache including but not limited to subarachnoid hemorrhage, migraine headache, tension headache and infectious causes such as meningitis, pharyngitis and sinusitis. Medical Decision Making ED Course/Re-evaluation ED Course In the emergency department, I discussed treatment options with the patient. She is on a medical treatment plan precludes narcotics. I discussed this with her. Patient states "you don't always have to tell me I can't have opiates. I know I'm an addict and can't have those". I did discuss alternative analgesics including IV acetaminophen, anti-inflammatories, and migraine treatment such as the use of Benadryl and Compazine. Patient states that in the past she has received ketamine and that did well for her. Patient refused consideration of Compazine, Reglan, Benadryl for alternate migraine therapies. She did agree to IV acetaminophen. She requested ketamine. 20 mg of ketamine IV and 1 g of acetaminophen IV were ordered. 02/23/2018 9:33:08 pm Reevaluation of the patient shows that she notes an improvement in her headache. She stated that she wanted Jell-O. Nurses noted that she refused the IV Tylenol. Patient states she continues to have some stiffness in the muscles of her neck when she turns her head to the left. She states at home that she takes diclofenac. I asked if she wanted that when she was here. Initially she said yes. In review of the record notes that she has a "allergy" to anti- inflammatories. I reviewed this with the patient and told her that diclofenac was an anti-inflammatory. She now thinks that maybe this was making her headache worse and no longer wants to have this. As such this was never ordered. As she is feeling better and has had the Jell-O, she is comfortable with going home and treating at home at this time. She is instructed to keep her follow-up with her primary care as previously planned. She should return or recheck for any significant worsening of symptoms or the development of new symptoms. At time of discharge, she notes minimal headache. Her neurologic examination is nonfocal. She is more animated. She is ambulatory without difficulty. She is tolerating oral intake without difficulty. Decision to Disposition Date: February 23, 2018 Decision to Disposition Time: 21:30 Depart Departure Latest Vital Signs Vital Signs Date Time Temp Pulse Resp B/P (MAP) Pulse Ox O2 Delivery O2 Flow Rate FiO2 02/23/18 21:08 78 89 02/23/18 21:00 134/85 (101) 02/23/18 20:55 99.5 16 Room Air Impression: Primary Impression: Migraine headache Condition: Improved Disposition: HOME OR SELF-CARE Referrals: SHERON PEARL APRN FAMILY PHYSICIAN-C (PCP) Departure Forms: ER Transition Record, Medications Reconciliation, Patient Portal Information Patient Instructions: Acute Headache (ED) QUENTIN MITCHELL MD February 23, 2018 21:06
== END 2018-02-23 21:39 | disposition home or self-care (01) ==
LOC: ER 19:59
DX: G43.909 Migraine, unspecified, not intractable, without status migrainosus (principal)
CPT/HCPCS: 96374; 99284

== ENCOUNTER → 2018-02-23 | Outpatient (CLI) | payer MEDICARE, MEDICAID ==
[~2018-02-23] MED LIST changes: +CIPR-345 PO; -CITA-139 PO; +CITA-145 PO; +DICL100G39 TOP; -METF-410 PO; +METF-411 PO; +[UNRECOGNIZED DRUG - OTHER]
== END ==
LOC: AMB 19:26
PROVIDERS: ATTEND Nurse Practitioner
DX: G43.909 Migraine, unspecified, not intractable, without status migrainosus (principal)
CPT/HCPCS: A0425; A0427

== ENCOUNTER 2018-03-06 11:15 | Outpatient (RCR) | payer MEDICARE, MEDICAID ==
--- NOTE | 2018-02-13 11:53 | PT INITIAL EVALUATION ---
MEDICAL DIAGNOSIS: R26.89 Balance problems TREATMENT DIAGNOSIS: Same DATE OF ONSET: 01/18/18 SUBJECTIVE: Lamonte Erickson presents to PT for altered gait, falls during community ambulation. She reports falling while ambulating [place] due to her trunk shifting laterally so much. REHAB PROBLEM LIST: Decreased Strength, Endurance, Altered Balance and Gait PREVIOUS MEDICAL HISTORY: Mental health disorders, L TKA, R knee OA, mild R hip OA, moderate pubic symphysis OA, meningioma removal, DM, peripheral neuropathy. OCCUPATION: Disabled, lives in a one level apartment, handrail on stoop. OBJECTIVE: Posture: Morbidly obese, heels 10" apart, valgus knees, midline head and trunk. ROM: LE's AROM WFL. Strength: Hip abductors <3/5, PF 2/5, quads 3/5. Sensation: L plantar foot no sensation with [place] monofilament "T", R "E" 3.22. Special Tests: O2 on room air 87 to 91%, HR 82, with exercise on room air 85%, on 2 l/min. O2 with exercise 94%, HR 115, with 70 feet of gait, room air O2 sats87%, HR 105. 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 Gait: [place] Gait and Balance a fall risk for community ambulation. Lamonte ambulates with feet not passing each other or clearing the floor, strong trunk lean laterally over R and L stance LE. Balance: Double limb support. Static stand on foam with eyes open with mild balance disturbance. ASSESSMENT: Lamonte Erickson presents with weak LE's, deconditioning, altered gait and balance affecting fall risk. She did well with exercise with O2 2 l/ minutes. Short Term Goals 4 weeks: Lamonte ambulates with less trunk lateral lean in stance, ambulates with feet clearing the floor. 8 weeks: No falls with community ambulation for 3-4 weeks, ambulates with normal trunk stability. Patient's Goals Don't fall in community ambulation, be more steady with gait. PLAN: Patient to be seen for Strengthening/condition, Stretching, Neuromuscular Re-ed, Gait Trg/Balance Trg, Home Exercise Program 2x/Week for 2 Months Thank you for this referral. If you have any questions, comments, or concerns about this report or plan, please contact me at . [facility]
[2018-03-06] MEDS ORDERED: TRAM-420 PO (13:44)
[2018-03-06] MEDS ORDERED: DICL100G39 TOP (13:44)
[2018-03-06] MEDS ORDERED: [UNRECOGNIZED DRUG - OTHER] (13:47)
--- NOTE | 2018-03-10 11:23 | PT PLAN OF CARE ---
Physician: Shaneka Navarro APRN, STAFF SOFTWARE ENGINEER-C Patient is being seen: 2x/week Therapist: Gia Amaya PT Medical Diagnosis: R26.89 Balance problems Treatment Diagnosis: Same Date of Onset: 01/18/18 Date of Initial Evaluation: 02/13/18 Date patient was last seen: 03/06/18 Number of treatments: 5 Number of cancellations/No shows: 2 INTERVENTIONS: Strengthening/condition, Stretching, Balance Training GOALS: Both not met: 4 weeks: Lamonte ambulates with less trunk lateral lean in stance, ambulates with feet clearing the floor. 8 weeks: No falls with community ambulation for 3-4 weeks, ambulates with normal trunk stability. PATIENT'S GOAL: Don't fall in community ambulation, be more steady with gait. Status of Patient's Goals: not met Patient Compliance: Excellent Prognosis: Excellent Reasons for discontinuing therapy: S: Lamonte called to say she fell again. Her R knee pain is severe and she'll see a doctor about it. O: Hip and quad strength wasn't improved over 5 visits. Special Tests: O2 on room air 84-88%, HR 107 with ambulating 70 feet at her last visit, O2 in the low 90's in several other visits. 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 A/P: Lamonte Erickson didn't advance with PT over 5 visits. Her knee pain has limited her exercise tolerance. If you'd like her to try PT again, I'd be happy to work with her. I'll DC PT for now. Thank you. GLENYS
== END 2018-03-06 18:00 | disposition home or self-care (01) ==
LOC: PT 11:15
PROVIDERS: ATTEND Nurse Practitioner Family
DX: R26.89 Other abnormalities of gait and mobility (principal); R29.6 Repeated falls; M17.11 Unilateral primary osteoarthritis, right knee; M16.11 Unilateral primary osteoarthritis, right hip; E11.9 Type 2 diabetes mellitus without complications; G62.9 Polyneuropathy, unspecified; E66.9 Obesity, unspecified; Z96.652 Presence of left artificial knee joint
CPT/HCPCS: 97162

== ENCOUNTER 2018-04-06 18:57 | Emergency (ER) | payer MEDICARE, MEDICAID ==
--- NOTE | 2018-04-06 19:06 | ER Report ---
History and Physical Time Seen By MD: 19:05 HPI/KEENNA CHIEF COMPLAINT: Fall, head impact HISTORY OF PRESENT ILLNESS: 57-year-old female with an extensive past medical history brought in by EMS from home. She was out on her front yard having a cigarette when she returned to her house. She was climbing up the stoop when she missed a step. She fell forward striking her head on the door jam. She felt a popping sensation in her neck and had severe pain. Patient has a chronic pain problem and is on a treatment contract here restricting use of opiates. We'll to get up and ambulate to her recliner. EMS put her in a collar and brought her to the emergency department complaining of neck pain. She has a nonfocal neurologic examination. She has movement of extremities 4. She has no nausea or vomiting to suggest concussion. There is no bruising pittman or abrasions noted on her face or head. REVIEW OF SYSTEMS: Respiratory: No cough, no dyspnea. Cardiovascular: No chest pain, no palpitations. Gastrointestinal: No vomiting, no abdominal pain. Musculoskeletal: As above Allergies: Coded Allergies: ketorolac (Verified Allergy, Intermediate, MADE SYMTOMS WORSE, 12/22/17) NSAIDS (Non-Steroidal Anti-Inflamma (Verified Allergy, Mild, Vomiting, 12/22) butorphanol (Verified Allergy, Mild, facial burning, 12/22/17) morphine (Verified Allergy, Unknown, 12/22/17) phenazopyridine HCl (Verified Allergy, Unknown, 12/22/17) sumatriptan succinate (Verified Allergy, Unknown, 12/22/17) Home Meds Active Scripts Tramadol Hcl (TRAMADOL HCL) 50 Mg Tablet, 50 MG PO Q4-6H for PAIN, #6 MG TAKE ONE TABLET BY MOUTH EVERY SIX HOURS NEEDED Prov:ALEXA FRANKEL DO 04/06/18 Metformin Hcl (METFORMIN HCL) 500 Mg Tablet, 1 TAB PO BID, #180 TAB 0 Refills Prov:SHERON PEARL APRN-Joanne 04/06/18 Omeprazole (OMEPRAZOLE) 40 Mg Capsule.dr, 1 CAP PO BID, #60 CAP 6 Refills Take 1 capsule twice every day 1/2 hour before eating. Prov:SHERON PEARL APRN-C 03/19/18 Levothyroxine Sodium (LEVOTHYROXINE SODIUM) 25 Mcg Tablet, 1 TAB PO QDAY, #90 TAB 0 Refills Prov:ISAIAS-PAULAIDENSHERONKATELIN QIU-C 03/17/18 [Cosmetic Sales Assistant Animal] No Conflict Check Prov:SHERON PEARL APRN-C 03/06/18 Diclofenac Sodium 1% Gel (VOLTAREN 1% GEL) 100 Gm Gel..gram., 4 GM TOP QID Y for PAIN, #100 GM 2 Refills as needed for right knee pain Prov:SHERON PEARL APRN-C 03/06/18 Tramadol Hcl (TRAMADOL HCL) 50 Mg Tablet, 1 TAB PO BID Y for PAIN, #60 TAB 0 Refills As needed for severe pain not releived first with tylenol and diclofenac gel. Prov:SHERON PEARL APRN-Joanne 03/06/18 Insulin Detemir 100 UN/ML PEN (Levemir Flextouch) 100 Unit/1 Ml Insuln.pen, 40 UNITS SUBQ DAILY, #1 BOX 10 Refills Prov:SHERON PEARL APRN-C 11/17/17 Duloxetine Hcl (CYMBALTA) 60 Mg Capsule.dr, 1 CAP PO QDAY, #90 CAP 1 Refill Prov:SHERON PEARL APRN-C 10/10/17 Tizanidine Hcl (TIZANIDINE HCL) 4 Mg Tablet, 1 TAB PO TID Y for MUSCLE SPASMS, # 90 TAB 0 Refills Prov:SHERON PEARL APRN-C 10/10/17 Gabapentin (GABAPENTIN) 600 Mg Tablet, 1 TAB PO BID, #180 TAB 2 Refills Prov:SHERON PEARL APRN-C 09/30/17 Blood Sugar Diagnostic (BLOOD GLUCOSE TEST STRIP) 1 Each Strip, 1 STRIP MC DAILY , #30 BOT 4 Refills Prov:SHERON PEARL APRN-C 06/02/17 Spironolactone (SPIRONOLACTONE) 25 Mg Tablet, 1 TAB PO DAILY, #90 TAB 3 Refills Prov:SHERON PEARL APRN-C 03/27/17 Nystatin 100,000 Unit/Gm Top Powder (NYSTATIN 100,000 UNIT/GM TOP POWDER) 15 Gm Powder, 1 AN TP TID, #120 GM 1 Refill apply to perineum 3 times daily until resolved. Follow up if not improved in 2 weeks. Prov:SHERON PEARL APRN-Joanne 02/21/17 Ondansetron (ZOFRAN ODT) 4 Mg Tab.rapdis, 1 TAB SL Q12H Y for nausea / migraine , #10 TAB.MARTIN 0 Refills Prov:SHERON PEARL APRN-Joanne 11/01/16 Oxybutynin Chloride (OXYBUTYNIN CHLORIDE) 5 Mg Tablet, 1 TAB PO BID, #180 TAB 2 Refills Prov:SHERON PEARL APRN-Joanne 09/11/16 Reported Medications Lamotrigine (LAMOTRIGINE) 100 Mg Tablet, 1 TAB PO DAILY 10/10/16 Topiramate (TOPIRAMATE) 100 Mg Tablet, 1 TAB PO DAILY 10/10/16 Past Medical/Surgical History Past Medical History Neurologic: Reports hx of: neuropathy (diabetic) vertigo (positional) other neurologic history (headache, neuralgia) Cardiovascular: Reports hx of: other CV history (Hypercholesterolemia) Respiratory: Reports hx of: asthma sleep apnea (not treated due to claustrophobia) Gastrointestinal: Reports hx of: GERD other GI history (abdominal pain) Genitourinary: Reports hx of: other history (urinary urgency) Musculoskeletal: Reports hx of: osteoarthritis Integumentary: Reports hx of: other integumentary hx (Celluitis and abscess ( buttock), dermatits, Morbid obesity, candidiasis) Psychiatric: Reports hx of: bipolar disorder depression suicide attempt(s) other psychiatric history (opioid and tobacco abuse) Endocrine: Reports hx of: diabetes type 2 other endocrine history (elevated glucose) Past Surgical History Neurologic: Reports hx of: Other neurologic surgery (meningioma removal) HEENT: Reports hx of: other eye surgery (ages 2 and 18) Gastrointestinal: Reports hx of: cholecystectomy (2009) Gynecologic: Reports hx of: hysterectomy Reviewed Nurses Notes: Yes Old Medical Records Reviewed: Yes Hx Smoking: Yes (7-10 CIGS QDAY) Smoking Status: Current: Every Day Smoker Exposure to Second Hand Smoke?: Yes Hx Substance Use Disorder: Yes Hx Alcohol Use: No Constitutional Vital Sign - Last 24 Hours 04/06/18 04/06/18 04/06/1804/06/18 19:03 19:03 19:27 19:49 Temp 98.3 Pulse 90 88 Resp 20 B/P (MAP) 124/77 124/77 (93) 123/74 (90) Pulse Ox 89 89 O2 Delivery Room Air 04/06/18 04/06/18 19:57 20:45 Pulse 90 B/P (MAP) 112/80 (91) Pulse Ox 89 Physical Exam Vital signs stable, afebrile, pulse ox 89% on room air General Appearance: The patient is alert, has no immediate need for airway protection and no signs of toxicity. Palpation of the head and neck reveal no tenderness or trauma, facial bones intact on palpation Eyes: Pupils equal and round no pallor or injection. ENT, Mouth: Mucous membranes are moist. No trauma noted in the oropharynx Respiratory: There are no retractions, lungs are clear to auscultation. No chest wall tenderness Cardiovascular: Regular rate and rhythm. Gastrointestinal: Abdomen is soft and non tender, no masses, bowel sounds normal. Neurological: Alert and oriented 3, cranial nerves II through XII intact motor 5/5 all groups, sensory intact to light touch 4 Skin: Warm and dry, no rashes. Musculoskeletal: Neck is supple non tender. C-spine stabilization maintained with collar Extremities are nontender, nonswollen and have full range of motion. DIFFERENTIAL DIAGNOSIS: After history and physical exam differential diagnosis was considered for head injury including but not limited to concussion, skull fracture, intraparenchymal contusion, subarachnoid, subdural and epidural hematoma., Cervical strain, cervical fracture Medical Decision Making EKG/Imaging Imaging Results: CT scan of the head was obtained. The results of the study are no acute findings. The study was read by the radiologist. I viewed the images myself on the PACS system. Results: CT scan of the cervical spine without contrast was obtained. The results of the study are no acute findings. The study was read by the radiologist. I viewed the images myself on the PACS system. ED Course/Re-evaluation ED Course Patient was admitted to an examination room. H&P was done. The differential diagnoses was considered. On clinical examination. Patient has no signs of head trauma. Examination of her head and neck reveal no tenderness. She's complaining of severe pain. She is a nonfocal neurologic examination. CT scan of the head and neck are ordered and performed which are unremarkable. Results are discussed. Patient has little improvement of her pain with tramadol and Tylenol. She is requesting something for pain. Unfortunately, she is on a treatment plan. She's given tramadol take home pack. An additional prescription for 6 tramadol tablets 50 mg was provided. Patient advised to follow-up with primary care for recheck if unimproved in 3-5 days. Decision to Disposition Date: Apr 06, 2018 Decision to Disposition Time: 20:38 Depart Departure Latest Vital Signs Vital Signs Date Time Temp Pulse Resp B/P (MAP) Pulse Ox O2 Delivery O2 Flow Rate FiO2 04/06/18 20:45 112/80 (91) 04/06/18 19:57 90 89 04/06/18 19:03 98.3 20 Room Air Core Temperature (Celsius): 37.50 Impression: Primary Impression: Head injury Additional Impression: Cervical strain Condition: Improved Disposition: HOME OR SELF-CARE Referrals: SHERON PEARL APRN ENVIRONMENTAL ENGINEERING MANAGER-C (PCP) New Scripts Tramadol Hcl (TRAMADOL HCL) 50 Mg Tablet 50 MG PO Q4-6H for PAIN, #6 MG TAKE ONE TABLET BY MOUTH EVERY SIX HOURS NEEDED Prov: ALEXA FRANKEL DO 04/06/18 Patient Instructions: Head Injury (ED) Additional Instructions: Follow-up with primary care if unimproved in 3-5 days Problem Qualifiers Primary Impression: Head injury Encounter type: initial encounter Qualified Codes: S09.90XA - Unspecified injury of head, initial encounter Additional Impression: Cervical strain Encounter type: initial encounter Qualified Codes: S16.1XXA - Strain of muscle, fascia and tendon at neck level, initial encounter ALEXA FRANKEL DO Apr 06, 2018 19:05
[2018-04-06] MEDS ORDERED: traMADol 50 MG TAB PO ONE (19:10)
[2018-04-06] MEDS ORDERED: ACETAMINOPHEN 325 MG TAB PO ONE (19:10)
--- NOTE | 2018-04-06 20:17 | RADIOLOGY IMAGING REPORT ---
FAC[place] [facility] [place] NAME: Lamonte Erickson : 1960 MR: [id number] V: [id number] EXAM DATE: ORDERING PHYSICIAN: ALEXA FRANKEL TECHNOLOG[place]: [place] [facility] [place] : 1960 Visit/Account:[id number] Date of Sevice: 04/06/2018 HEAD W/O CONTRAST EXAMINATION: CT head/brain without contrast HISTORY: Fall TECHNIQUE: Contiguous axial images were obtained from the skull base to the vertex without intravenou s contrast. One of the following dose optimization techniques was utilized in the performance of this exam: Autom ated exposure control; adjustment of the mA and/or kV according to the patient's size; or use of an i terative reconstruction technique. Specific details can be referenced in the facility's radiology C T exam operational policy. COMPARISON STUDIES: 03/06/2017 FINDINGS: Ventricles/sulci/fissures: Asymmetric ventricular size of the right ventricle when compared to the le ft particularly the right occipital and temporal horns likely related to asymmetric cortical atrophy and volume loss. Masses/hemorrhage/midline shift: No acute hemorrhage seen. White matter: No white matter edema Nuno-white differentiation: Well-maintained Extra-axial spaces: No subarachnoid or subdural fluid collections Dural venous sinuses/arterial structures: Negative Skull base/calvarium: Status post craniotomy changes in the right frontal and temporal bones. Visualized mastoid air cells/paranasal sinuses: Negative IMPRESSION: 1. Postoperative changes with respect to craniotomy defects in the right frontal and temporal bones. No acute intracranial pathology. No significant interval change in the appearance when compared to e previous CT scan. Report Dictated By: Michael Aguayo MD at 04/06/2018 8:09 PM Report E-Signed By: Michael Aguayo MD at 04/06/2018 8:13 PM WSN:[id number]
--- NOTE | 2018-04-06 20:28 | RADIOLOGY IMAGING REPORT ---
FACILITY: [facility] - [place] PATIENT NAME: Lamonte Erickson : 1960 MR: [id number] V: [id number] EXAM DATE: ORDERING PHYSICIAN: ALEXA FRANKEL TECHNOLOGIST: Location: [facility] [place] Patient: Lamonte Erickson : 1960 Visit/Account:[id number] Date of Sevice: 04/06/2018 C-SPINE W/O CONTRAST EXAMINATION: CT cervical spine with contrast \ C-SPINE W/O CONTRAST EXAMINATION: CT cervical spine Fall One of the following dose optimization techniques was utilized in the performance of this exam: Autom ated exposure control; adjustment of the mA and/or kV according to the patient's size; or use of an i terative reconstruction technique. Specific details can be referenced in the facility's radiology C T exam operational policy. COMPARISON STUDIES: 03/20/2016 TECHNIQUE: Axial images were obtained from the skull base through the upper thoracic spine without IV contrast administration. Coronal and sagittal reformatted images were obtained from the axial source data. FINDINGS: Prevertebral soft tissues: Negative Alignment: Well-maintained vertebral bodies. No vertebral body offset.. Vertebral bodies: Vertebral body height well-maintained. Posterior elements: Facet joints well-maintained alignment with no facet fracture or disruption. Disc spaces: Well-maintained disc spaces. Visualized soft tissues anterior neck: Normal anterior soft tissues. Visualized lung/mediastinum: No pneumothorax. Visualized ribs unremarkable. IMPRESSION: 1. Negative CT scan of the cervical spine for acute bony pathology. Report Dictated By: Michael Aguayo MD at 04/06/2018 8:19 PM Report E-Signed By: Michael Aguayo MD at 04/06/2018 8:23 PM WSN:[id number]
[2018-04-06] MEDS ORDERED: traMADol 50 MG TAB TH 2 TAB/BOTTLE PO ONE (20:35)
[2018-04-06] MEDS ORDERED: TRAM-420 PO (20:35)
[2018-04-06 20:45] VITALS: BP 112/80
== END 2018-04-06 20:53 | disposition home or self-care (01) ==
LOC: ER 19:11
DX: S16.1XXA Strain of muscle, fascia and tendon at neck level, initial encounter (principal); S09.90XA Unspecified injury of head, initial encounter; W10.8XXA Fall (on) (from) other stairs and steps, initial encounter
CPT/HCPCS: 70450; 72125; 99284; A9270; C9399

== ENCOUNTER → 2018-04-06 | Outpatient (CLI) | payer MEDICARE, MEDICAID ==
[~2018-04-06] MED LIST changes: +DICL100G39 TOP; +[UNRECOGNIZED DRUG - OTHER]
== END ==
LOC: AMB 18:43
PROVIDERS: ATTEND Nurse Practitioner
DX: R51 Headache (principal); M54.2 Cervicalgia; W01.198A Fall on same level from slipping, tripping and stumbling with subsequent striking against other object, initial encounter
CPT/HCPCS: A0425; A0429

== ENCOUNTER 2018-05-14 18:35 | Emergency (ER) | payer MEDICARE, MEDICAID ==
[2018-05-14] MEDS ORDERED: KETAMINE HCL 500 MG/5 ML VIAL IM ONE (19:10)
[2018-05-14] MEDS ORDERED: KETAMINE HCL 500 MG/5 ML VIAL IVP ONE (19:10)
--- NOTE | 2018-05-14 19:46 | ER Report ---
History and Physical Time Seen By MD: 18:54 Hx. of Stated Complaint: 2 FALLS IN THE LAST 3 DAYS - C/O LOW BACK PAIN. ALSO COMPLAINING OF HEADACHE. HPI/ROS CHIEF COMPLAINT: Headache, back pain HISTORY OF PRESENT ILLNESS: 57-year-old female patient presents to emergency room with complaint of headache and back pain. Patient states that she has been having a headache for the past 2 weeks. She states that is nearing a migraine. She states that when she gets a headache like this seems to help is ketamine. She states that she has had Dilaudid in the past which seem to help as well with her headache. She states that she is also had 2 falls, both time she is landed on her butt. She states the pain in her back seems to be getting worse. She states she fell in the garage and then again in her kitchen. She states that the foundation in her kitchen is concrete which seem to hurt more than the fall in the garage. Patient states she is not taking any medication for this. She states that she is taking Tylenol for headaches in the past but they don't do anything. Patient denies any numbness or tingling, no loss of bowel or bladder control, no saddle paresthesia. REVIEW OF SYSTEMS: Respiratory: No cough, no dyspnea. Cardiovascular: No chest pain, no palpitations. Gastrointestinal: No vomiting, no abdominal pain. Musculoskeletal: As noted above Allergies: Coded Allergies: ketorolac (Verified Allergy, Intermediate, MADE SYMTOMS WORSE, 05/14/18) NSAIDS (Non-Steroidal Anti-Inflamma (Verified Allergy, Mild, Vomiting, ) butorphanol (Verified Allergy, Mild, facial burning, 05/14/18) morphine (Verified Allergy, Unknown, 05/14/18) phenazopyridine HCl (Verified Allergy, Unknown, 05/14/18) sumatriptan succinate (Verified Allergy, Unknown, 05/14/18) Home Meds Active Scripts Spironolactone (SPIRONOLACTONE) 25 Mg Tablet, 1 TAB PO DAILY, #90 TAB 0 Refills Prov:SHERON PEARL APRN [employer]-C 04/21/18 Tramadol Hcl (TRAMADOL HCL) 50 Mg Tablet, 50 MG PO Q4-6H for PAIN, #6 MG TAKE ONE TABLET BY MOUTH EVERY SIX HOURS NEEDED Prov:ALEXA FRANKEL DO 04/06/18 Metformin Hcl (METFORMIN HCL) 500 Mg Tablet, 1 TAB PO BID, #180 TAB 0 Refills Prov:SHERON PEARL APRN-Joanne 04/06/18 Omeprazole (OMEPRAZOLE) 40 Mg Capsule.dr, 1 CAP PO BID, #60 CAP 6 Refills Take 1 capsule twice every day 1/2 hour before eating. Prov:SHERON PEARL APRN-Joanne 03/19/18 Levothyroxine Sodium (LEVOTHYROXINE SODIUM) 25 Mcg Tablet, 1 TAB PO QDAY, #90 TAB 0 Refills Prov:SHERON PEARL APRN-Joanne 03/17/18 [Respiratory Therapy Director Animal] No Conflict Check Prov:SHERON PEARL APRN 03/06/18 Diclofenac Sodium 1% Gel (VOLTAREN 1% GEL) 100 Gm Gel..gram., 4 GM TOP QID Y for PAIN, #100 GM 2 Refills as needed for right knee pain Prov:SHERON PEARL APRN 03/06/18 Tramadol Hcl (TRAMADOL HCL) 50 Mg Tablet, 1 TAB PO BID Y for PAIN, #60 TAB 0 Refills As needed for severe pain not releived first with tylenol and diclofenac gel. Prov:SHERON PEARL APRN 03/06/18 Insulin Detemir 100 UN/ML PEN (Levemir Flextouch) 100 Unit/1 Ml Insuln.pen, 40 UNITS SUBQ DAILY, #1 BOX 10 Refills Prov:SHERON PEARL APRN 11/17/17 Duloxetine Hcl (CYMBALTA) 60 Mg Capsule.dr, 1 CAP PO QDAY, #90 CAP 1 Refill Prov:SHERON PEARL APRN 10/10/17 Tizanidine Hcl (TIZANIDINE HCL) 4 Mg Tablet, 1 TAB PO TID Y for MUSCLE SPASMS, # 90 TAB 0 Refills Prov:SHERON PEARL APRNC 10/10/17 Gabapentin (GABAPENTIN) 600 Mg Tablet, 1 TAB PO BID, #180 TAB 2 Refills Prov:SHERON PEARL APRN 09/30/17 Blood Sugar Diagnostic (BLOOD GLUCOSE TEST STRIP) 1 Each Strip, 1 STRIP MC DAILY , #30 BOT 4 Refills Prov:NEISHAPAULSHERON TAMIKO [facility]- 06/02/17 Nystatin 100,000 Unit/Gm Top Powder (NYSTATIN 100,000 UNIT/GM TOP POWDER) 15 Gm Powder, 1 AN TP TID, #120 GM 1 Refill apply to perineum 3 times daily until resolved. Follow up if not improved in 2 weeks. Prov:SHERON PEARL APRN [facility]- 02/21/17 Ondansetron (ZOFRAN ODT) 4 Mg Tab.rapdis, 1 TAB SL Q12H Y for nausea / migraine , #10 TAB.MARTIN 0 Refills Prov:SHERON PEARL APRN [facility]- 11/01/16 Oxybutynin Chloride (OXYBUTYNIN CHLORIDE) 5 Mg Tablet, 1 TAB PO BID, #180 TAB 2 Refills Prov:SHERON PEARL APRN [facility]- 09/11/16 Reported Medications Lamotrigine (LAMOTRIGINE) 100 Mg Tablet, 1 TAB PO DAILY 10/10/16 Topiramate (TOPIRAMATE) 100 Mg Tablet, 1 TAB PO DAILY 10/10/16 Past Medical/Surgical History Patient has a past medical history of TIA, migraine, hypertension, hyperlipidemia, asthma, pneumonia, ulcer, reflux, arthritis, leg fracture, back pain, diabetes, hypothyroidism, substance abuse, schizophrenia, depression. Patient has a surgical history of brain surgery, pyloric stenosis, hernia repair , appendectomy, cholecystectomy, colonoscopy, right ovary removed, hysterectomy , left knee surgery, eye surgery, tonsillectomy. Patient has a family medical history of cancer, bipolar. Hx Smoking: Yes (7-10 CIGS QDAY) Smoking Status: Current: Every Day Smoker Exposure to Second Hand Smoke?: Yes Hx Substance Use Disorder: Yes Hx Alcohol Use: No Constitutional Vital Sign - Last 24 Hours 05/14/18 05/14/18 18:36 20:36 Temp 97.9 Pulse 100 85 Resp 18 18 B/P (MAP) 102/81 112/76 (88) Pulse Ox 92 92 O2 Delivery Room Air Room Air Physical Exam General Appearance: The patient is alert, has no immediate need for airway protection and no current signs of toxicity. Respiratory: Chest is non tender, lungs are clear to auscultation. Cardiac: regular rate and rhythm Gastrointestinal: Abdomen is soft and non tender, no masses, bowel sounds normal. Musculoskeletal: Neck: Neck is supple and non tender. Extremities have full range of motion and are non tender. Back: Patient has tenderness to the lumbar spine, there is no bruising noted. Skin: No rashes or lesions. DIFFERENTIAL DIAGNOSIS: After history and physical exam differential diagnosis was considered for back pain, contusion, fracture, migraine, drug seeking behavior. Medical Decision Making EKG/Imaging Imaging LUMBAR SPINE 4 VIEWS History: Low back pain. Comparison study: November 15, 2016 lumbar spine films. Findings: The lumbar spine has normal lordotic curvature. Comparison to the previous study shows that there has been mild progression of previously noted discogenic degenerative changes at L4-5. There has also been increased degenerative change at L5-S1. There is no fracture or spondylolisthesis. There is no spondylolysis. Sacroiliac joints are unremarkable. There are surgical clips in the right upper quadrant and in the anterior abdominal wall. IMPRESSION: 1. No fracture, spondylolisthesis or spondylolysis. 2. Progression of previous noted discogenic degenerative changes at both L4-5 and L5-S1. Report Dictated By: Amol Sanford MD at 05/14/2018 7:54 PM Report E-Signed By: Amol Sanford MD at 05/14/2018 7:56 PM ED Course/Re-evaluation ED Course Patient was managed in exam room, history and physical were obtained. Differential diagnoses were considered. On examination lungs are clear, heart is regular, abdomen soft nontender, patient does have some tenderness to the low back, there is no bruising noted. There are no step-offs. Initially I discussed doing an x-ray with the patient, however she refused saying that she has strong bones. However with her falling on concrete twice I felt that it was necessary. She did consent. X-rays done of the lumbar spine which was negative. Patient states that she also is having a significant headache, she states that she is afraid is going to turn into a migraine. She has had the pain for 2 weeks. She was requesting ketamine. Patient does have a history of drug-seeking behavior and is currently on our treatment plan. I discussed the results of her x-rays with her and discussed options for treating her pain. Due to her treatment plan I do not feel that she can receive any narcotics, which include ketamine. Patient became very upset, stating that I was refusing to treat her pain. She states that ketamine is healing medication that works for her pain. At that time I informed her that I did not feel the ketamine was appropriate medication, in that it was used as a disassociative medication and for conscious sedation and induction of anesthesia. Patient asked if I believe that she is drug-seeking. At that time I did inform her that I didn't believe that she was. She became very irate at that time. Saying that she is going to report to me. She states that she came to the emergency room for pain, and she is not been treated for her pain. I informed her that I was going to treat her pain, however I was going to use Tylenol 1 g, instead of ketamine. Patient then tossed her blood pressure cuff aside again accusing me of failure to treat her pain. I informed her that I was going to get her paperwork typed up so that patient could leave. She then stated that she is going to report me for being insensitive to her and her plight. I informed her that she was entitled to her opinions. Decision to Disposition Date: May 14, 2018 Decision to Disposition Time: 20:16 Depart Departure Latest Vital Signs Vital Signs Date Time Temp Pulse Resp B/P (MAP) Pulse Ox O2 Delivery O2 Flow Rate FiO2 05/14/18 20:36 85 18 112/76 (88) 92 Room Air 05/14/18 18:36 97.9 Core Temperature (Celsius): 37.50 Impression: Primary Impression: Acute low back pain Additional Impression: Tension type headache Condition: Condition Unchanged Disposition: HOME OR SELF-CARE Referrals: SHERON PEARL APRN [employer] (PCP) Patient Instructions: Back Pain (ED) Additional Instructions: Get plenty of rest. Limit activity by pain. Follow up with your primary care provider tomorrow or early next week. Continue with your current medications. Return to the ER if condition worsens. The phone number to Compliance is: or Problem Qualifiers Primary Impression: Acute low back pain Back pain laterality: bilateral Sciatica presence: without sciatica Qualified Codes: M54.5 - Low back pain Additional Impression: Tension type headache Headache chronicity pattern: acute headache Intractability: not intractable Qualified Codes: G44.209 - Tension-type headache, unspecified, not intractable LIZETTE KC May 14, 2018 19:46
--- NOTE | 2018-05-14 20:00 | RADIOLOGY IMAGING REPORT ---
FACILITY: [facility] PATIENT NAME: Lamonte Erickson : 1960 MR: [id number] V: [id number] EXAM DATE: ORDERING PHYSICIAN: LIZETTE KC TECHNOLOGIST: Location: [facility] Patient: Lamonte Erickson : 1960 Visit/Account:[id number] Date of Sevice: 05/14/2018 LUMBAR SPINE 4 VIEWS History: Low back pain. Comparison study: November 15, 2016 lumbar spine films. Findings: The lumbar spine has normal lordotic curvature. Comparison to the previous study shows bentley t there has been mild progression of previously noted discogenic degenerative changes at L4-5. There has also been increased degenerative change at L5-S1. There is no fracture or spondylolisthesis. There is no spondylolysis. Sacroiliac joints are unremarkable. There are surgical clips in the right upper quadrant and in the anterior abdominal wall. IMPRESSION: 1. No fracture, spondylolisthesis or spondylolysis. 2. Progression of previous noted discogenic degenerative changes at both L4-5 and L5-S1. Report Dictated By: Amol Sanford MD at 05/14/2018 7:54 PM Report E-Signed By: Amol Sanford MD at 05/14/2018 7:56 PM WSN:[id number]
[2018-05-14] MEDS ORDERED: ACETAMINOPHEN 500 MG TAB PO ONE (20:30)
[2018-05-14 20:36] VITALS: BP 112/76
== END 2018-05-14 20:36 | disposition home or self-care (01) ==
LOC: ER 18:44
DX: M54.5 Low back pain (principal); G44.209 Tension-type headache, unspecified, not intractable
CPT/HCPCS: 72120; 99283; A9270

== ENCOUNTER → 2018-05-14 | Outpatient (CLI) | payer MEDICARE, MEDICAID ==
[~2018-05-14] MED LIST changes: +SPIR25TA80 PO
== END ==
LOC: AMB 18:19
PROVIDERS: ATTEND Nurse Practitioner
DX: M54.9 Dorsalgia, unspecified (principal)
CPT/HCPCS: A0425; A0429

== ENCOUNTER → 2018-06-25 | Outpatient (CLI) | payer MEDICARE, MEDICAID ==
[~2018-06-25] MED LIST changes: +NYST15CR32 TP
--- NOTE | 2018-06-25 14:13 | RADIOLOGY IMAGING REPORT ---
[place] [facility] [place] NAME: Lamonte Erickson : 1960 MR: [id number] V: [id number] EXAM DATE: ORDERING PHYSICIAN: SHERON PEARL TECHNOLOGIST: Location: [facility] [place] Patient: Lamonte Erickson : 1960 Visit/Account:[id number] Date of Sevice: 06/25/2018 Technique: CERVICAL SPINE 2 OR 3 VIEW HISTORY: neck pain Comparison studies: None FINDINGS: There is no acute fracture. The vertebral body heights, alignment and intervertebral disc spaces are maintained. No prevertebral soft tissue swelling. IMPRESSION: 1. Unremarkable cervical spine radiographs. Report Dictated By: Reyes Siegel DO at 06/25/2018 2:09 PM Report E-Signed By: Reyes Siegel DO at 06/25/2018 2:10 PM WSN:[id number]
--- NOTE | 2018-06-25 14:14 | RADIOLOGY IMAGING REPORT ---
[place] [facility] [place] NAME: Lamonte Erickson : 1960 MR: [id number] V: [id number] EXAM DATE: ORDERING PHYSICIAN: SHERON PEARL TECHNOLOGIST: Location: [facility] Patient: Lamonte Erickson : 1960 Visit/Account:[id number] Date of Sevice: 06/25/2018 Technique: THORACIC SPINE 3 VIEWS HISTORY: thoracic back pain Comparison studies: None FINDINGS: There is no acute fracture. Scattered endplate osteophytes are noted within the thoracic s pine. The vertebral body heights are maintained. Imaged portions of the lungs are clear. IMPRESSION: 1. No acute osseous process within the thoracic spine. 2. Degenerative changes characterized by endplate osteophytosis. Report Dictated By: Reyes Siegel DO at 06/25/2018 2:10 PM Report E-Signed By: Reyes Siegel DO at 06/25/2018 2:11 PM WSN:[email or web address]
--- NOTE | 2018-06-25 14:20 | RADIOLOGY IMAGING REPORT ---
FACILITY: [facility] PATIENT NAME: Lamonte Erickson : 1960 MR: [id number] V: [id number] EXAM DATE: ORDERING PHYSICIAN: SHERON PEARL TECHNOLOGIST: Location: [facility] Patient: Lamonte Erickson : 1960 Visit/Account:[id number] Date of Sevice: 06/25/2018 Technique: LUMBAR SPINE 2 OR 3 VIEW HISTORY: lumbar back pain Comparison studies: None FINDINGS: 5 nonrib-bearing lumbar type vertebral bodies are present. There is a rotatory scoliosis. Intervertebral disc space narrowing is noted at L4-L5 and to a lesser extent L5-S1. The vertebral b daniel heights are maintained. IMPRESSION: 1. Degenerative changes as described above. Report Dictated By: Reyes Siegel DO at 06/25/2018 2:16 PM Report E-Signed By: Reyes Siegel DO at 06/25/2018 2:17 PM WSN:[email or web address]
== END ==
LOC: RAD 13:18
PROVIDERS: ATTEND Nurse Practitioner Family
DX: M41.86 Other forms of scoliosis, lumbar region (principal); M48.061 Spinal stenosis, lumbar region without neurogenic claudication
CPT/HCPCS: 72040; 72072; 72100

== ENCOUNTER 2018-07-30 13:44 | Outpatient (RCR) | payer MEDICARE, MEDICAID ==
--- NOTE | 2018-07-07 12:06 | PT INITIAL EVALUATION ---
MEDICAL DIAGNOSIS: M54.5 LBP TREATMENT DIAGNOSIS: Same DATE OF ONSET: 06/20/18 SUBJECTIVE: Lamonte Erickson presents to PT for insidious flare of chronic LBP. She developed LBP with a lifting injury in her 20's and has had episodic flares since then. Standard pain level is 4/10, dull ache. She walks around [facility] to the [employer] from [facility] and now has LBP 6-8/10, sharp ache. X-ray is positive for L/5 disc narrowing, lesser narrowing at L5/S1, rotoscoliosis. CLEOPATRA 29%. Pain location is L-S and described as sharp ache. Pain scale is 7 on a ten point pain scale. Pain is worse with walking up to 1/2 mile, sitting >10 minutes, standing 5-10 minutes and better with rest. REHAB PROBLEM LIST: Increased Pain Decreased ROM Decreased Strength Decreased Endurance Decreased Balance Decreased Gait PREVIOUS MEDICAL HISTORY: Mental health disorders, L TKA, R knee OA, mild R hip OA, moderate pubic symphysis OA, meningioma removal, DM, peripheral neuropathy. OCCUPATION: Disabled, lives in a one level apartment, handrail on stoop. OBJECTIVE: Posture: Hyperlipidemia presentation, iliac crests even, increased lumbar lordosis. ROM: AROM lumbar spine 75% flexion, reduces LBP, full extension, LBP. Strength: Core strength <3/5. Special Tests: Negative seated SLR, B for radicular symptoms. Tight lats, hip flexors, calves. Mobility: Sit<>stand without UE use, one attempt. Gait: Trendelenberg gait B, feet clear the floor and almost pass each other. Lamonte turns with balance control. Balance: Double limb support. Static stand with feet together with increased postural sway, eyes open, firm surface. ASSESSMENT: Lamonte Erickson presents with flexion-biased LBP, reduced strength, flexibility affecting gait, static postural endurance. She did well with stretching and strengthening exercises today. Short Term Goals 4 weeks: Lamonte ambulates 1/2 to 1 mile with LBP 6/10. 8 weeks: Lamonte ambulates 1/2 to 1 mile with LBP 4/10. Patient's Goals Walk with old level of LBP. PLAN: Patient to be seen for Manual Therapy Strengthening/condition Ice/Heat Range of Motion Spinal Stabilization Stretching Electrical Stim Posture/Body mechanics Gait Trg/Balance Trg Home Exercise Program 2x/Week for 2 Months Thank you for this referral. If you have any questions, comments, or concerns about this report or plan, please contact me at . [facility]
[~2018-07-30 13:44] MED LIST changes: -HYDR-4309 PO; +HYDR-653 PO; -METF-411 PO; +METF-450 PO
--- NOTE | 2018-08-04 11:26 | PT PLAN OF CARE ---
Physician: Shaneka Navarro APRN, ONLINE EDITOR-C Patient is being seen: 2x/week Therapist: Gia Amaya, PT Medical Diagnosis: M54.5 LBP Treatment Diagnosis: Same Date of Onset: 06/20/18 Date of Initial Evaluation: 07/07/18 Date patient was last seen: 07/30/18 Number of treatments: 6 Number of cancellations/No shows: 0 INTERVENTIONS: Spinal Stabilization, Strengthening, Home Exercise Program GOALS: 4 weeks: Lamonte ambulates 1/2 to 1 mile with LBP 6/10. (progressed) 8 weeks: Lamonte ambulates 1/2 to 1 mile with LBP 4/10. (not met) PATIENT'S GOAL: Walk with old level of LBP. (not met) Patient Compliance: Excellent Prognosis: Good Reasons for discontinuing therapy: S: Lamonte started home health yesterday and so needs to stop outpatient PT. She won't rate LBP by number when asked how much LBP she has with walking 1/2 mile, but she states it's strong. With the cold weather now, pain is more lumbar joint pain instead of muscle pain. Oswestry Disability Index 18% Posture: Hyperlipidemia presentation, iliac crests even, increased lumbar lordosis. ROM: AROM lumbar spine improved to full flexion, reduces LBP, full extension, LBP. Strength: Core strength 3/5. Mobility: Sit<>stand without UE use, one attempt. A/P: Lamonte Erickson improved lumbar flexion ROM, slight improvement of core strength and will continue with her theraband HEP. I'll DC PT to HEP. Thank you. GLENYS
== END 2018-07-30 18:00 | disposition home or self-care (01) ==
LOC: PT 13:44
PROVIDERS: ATTEND Nurse Practitioner Family
DX: M17.11 Unilateral primary osteoarthritis, right knee (principal); M16.11 Unilateral primary osteoarthritis, right hip; M54.5 Low back pain; E11.42 Type 2 diabetes mellitus with diabetic polyneuropathy
CPT/HCPCS: 97162

== ENCOUNTER 2018-08-05 18:35 | Inpatient (IN) | payer MEDICARE, MEDICAID ==
[2018-08-05] VITALS (7 sets, daily range): BP systolic 83–106; BP diastolic 57–74
[~2018-08-05 18:35] MED LIST changes: -OMEP10CA40 PO
--- NOTE | 2018-08-05 18:50 | ER Report ---
History and Physical Time Seen By : 18:50 HPI/ROS CHIEF COMPLAINT: Seroquel overdose HISTORY OF PRESENT ILLNESS: This is a 57 year old female. She is suicidal at this time and was trying to kill herself. Took about 25-30 of the 200mg Seroquel . Is very groggy at this time. Has been suicidal starting today. She is under an emergency senior living by [facility]. She has no other complaints other than her chronic low back pain that she has. Other information is limited at this time because of how groggy she is. She denies any other self harm today, including no other medications taken. Denies other pain including chest pain. Sh e is a little short of breath. REVIEW OF SYSTEMS: Limited other than above because of sedative effects of the Seroquel. Allergies: Coded Allergies: ketorolac (Verified Allergy, Intermediate, MADE SYMTOMS WORSE, 05/14/18) NSAIDS (Non-Steroidal Anti-Inflamma (Verified Allergy, Mild, Vomiting, 05/14/18) butorphanol (Verified Allergy, Mild, facial burning, 05/14/18) morphine (Verified Allergy, Unknown, 05/14/18) phenazopyridine HCl (Verified Allergy, Unknown, 05/14/18) sumatriptan succinate (Verified Allergy, Unknown, 05/14/18) Home Meds Active Scripts Spironolactone (SPIRONOLACTONE) 25 Mg Tablet, 1 TAB PO DAILY, #90 TAB 0 Refills Prov:SHERON PEARL APRN-C 07/28/18 Gabapentin (GABAPENTIN) 600 Mg Tablet, 1 TAB PO BID, #180 TAB 1 Refill Prov:SHERON PEARL APRN-C 07/24/18 Metformin Hcl (METFORMIN HCL) 500 Mg Tablet, 1 TAB PO BID, #180 TAB 0 Refills Prov:SHERON PEARL APRN-C 07/20/18 Levothyroxine Sodium (LEVOTHYROXINE SODIUM) 25 Mcg Tablet, 1 TAB PO QDAY, #90 TAB 0 Refills Prov:SHERON PEARL APRN-C 06/29/18 NYSTATIN 175977 UNT/ML Topical Cream (NYSTATIN 204362 UNT/ML Topical Cream) 15 Gm Cream..g., 1 AN TP BID, #60 GM 2 Refills Apply to rash under breasts until resolved Prov:SHERON PEARL APRNP-C 06/16/18 Quetiapine Fumarate (SEROQUEL) 200 Mg Tablet, 1 TAB PO QHS, #90 TAB 1 Refill Prov:SHERON PEARL APRNP-C 06/11/18 Oxybutynin Chloride (OXYBUTYNIN CHLORIDE) 5 Mg Tablet, 1 TAB PO BID, #180 TAB 1 Refill Prov:SHERON PEARL APRNP-C 05/26/18 Diclofenac Sodium 1% Gel (VOLTAREN 1% GEL) 100 Gm Gel..gram., 4 GM TOP QID PRN for PAIN, #100 GM 2 Refills as needed for right knee pain Prov:SHERON PEARL APRNP-C 03/06/18 Insulin Detemir 100 UN/ML PEN (Levemir Flextouch) 100 Unit/1 Ml Insuln.pen, 40 UNITS SUBQ DAILY, #1 BOX 10 Refills Prov:SHERON PEARL APRNP-C 11/17/17 Duloxetine Hcl (CYMBALTA) 60 Mg Capsule.dr, 1 CAP PO QDAY, #90 CAP 1 Refill Prov:SHERON PEARL APRN-C 10/10/17 Blood Sugar Diagnostic (BLOOD GLUCOSE TEST STRIP) 1 Each Strip, 1 STRIP MC DAILY, #30 BOT 4 Refills Prov:SHERON PEARL APRNP-C 06/02/17 Nystatin 100,000 Unit/Gm Top Powder (NYSTATIN 100,000 UNIT/GM TOP POWDER) 15 Gm Powder, 1 AN TP TID, #120 GM 1 Refill apply to perineum 3 times daily until resolved. Follow up if not improved in 2 weeks. Prov:SHERON PEARL APRNP-C 02/21/17 Reported Medications Omeprazole (OMEPRAZOLE) 10 Mg Capsule.dr, 30 MG PO BID, CAP 08/05/18 Lamotrigine (LAMOTRIGINE) 100 Mg Tablet, 1 TAB PO DAILY 10/10/16 Topiramate (TOPIRAMATE) 100 Mg Tablet, 1 TAB PO DAILY 10/10/16 Discontinued Scripts Tramadol Hcl (TRAMADOL HCL) 50 Mg Tablet, 1 TAB PO TID PRN for PAIN, #21 TAB 0 Refills As needed for severe pain not releived first with tylenol and diclofenac gel. Prov:SHERON PEARL APRN-Joanne 06/16/18 Omeprazole (OMEPRAZOLE) 40 Mg Capsule.dr, 1 CAP PO BID, #60 CAP 6 Refills Take 1 capsule twice every day 1/2 hour before eating. Prov:SHERON PEARL APRN 03/19/18 [[employer] Principal [employer]] No Conflict Check Prov:SHERON PEARL APRN-Joanne 03/06/18 Tizanidine Hcl (TIZANIDINE HCL) 4 Mg Tablet, 1 TAB PO TID PRN for MUSCLE SPASMS, #90 TAB 0 Refills Prov:SHREON PEARL APRN 10/10/17 Ondansetron (ZOFRAN ODT) 4 Mg Tab.rapdis, 1 TAB SL Q12H PRN for nausea / migraine, #10 TAB.MARTIN 0 Refills Prov:SHERON PEARL APRN 11/01/16 Reviewed Nurses Notes: Yes Hx Smoking: Yes (7-10 CIGS QDAY) Smoking Status: Current: Every Day Smoker Exposure to Second Hand Smoke?: Yes Hx Substance Use Disorder: Yes Hx Alcohol Use: No Constitutional Vital Sign - Last 24 Hours 08/05/18 08/05/18 08/05/18 08/05/18 18:44 18:54 19:00 19:04 Pulse 125 Resp 20 B/P (MAP) 121/72 121/72 (88) 119/74 (89) Pulse Ox 93 O2 Delivery Nasal Cannula O2 Flow Rate 4.0 08/05/18 08/05/18 08/05/18 08/05/18 19:05 19:15 19:30 19:35 Pulse 113 103 Resp 18 12 B/P (MAP) 100/61 (74) 99/61 (74) Pulse Ox 91 91 08/05/18 08/05/18 08/05/18 08/05/18 19:45 20:00 20:15 20:30 Pulse 100 106 ??? Resp 12 24 B/P (MAP) 104/62 (76) 111/64 (80) 108/60 (76) Pulse Ox 92 91 08/05/18 08/05/18 08/05/18 08/05/18 20:45 21:00 21:15 21:30 Pulse 100 94 91 86 Resp 26 12 16 16 B/P (MAP) 119/72 (88) 97/62 (74) 110/51 (70) 107/61 (76) Pulse Ox 90 95 95 95 08/05/18 21:45 Pulse 84 Resp 17 B/P (MAP) 97/61 (73) Pulse Ox 94 Physical Exam General Appearance: The patient is fairly sedated, but can walk to the bathroom and interact. No immediate need for airway protection. No acute distress. Eyes: Pupils are equal, round. Reactive to light. No pallor, injection or icterus. Extraocular movements are intact. ENT: Mucous membranes are moist. Normal oral mucosa. Posterior oropharynx is normal. Normal tympanic membranes and canals. Neck: Supple and non tender. No lymphadenopathy. Respiratory: Breathing easily and unlabored. Lungs are clear to auscultation. Cardiovascular: Regular rate and rhythm. No murmurs, gallops or rubs. Normal capillary refill. Gastrointestinal: Abdomen is soft and non tender. Nondistended. Normal active bowel sounds. No costovertebral angle tenderness with percussion. Neurological: Alert and oriented x3. No focal deficits noted. Skin: Warm and dry. No rashes. Musculoskeletal: Extremities are nontender. Has some diffuse pain in lumbar area, paraspinous, but no other back pain DIFFERENTIAL DIAGNOSIS: After history and physical exam, differential diagnosis was considered for Seroquel overdose with suicidal intent Medical Decision Making Data Points Result Diagram: 08/05/18195608/05/181956 Laboratory Hematology Test 08/05/18 19:57 08/05/18 20:38 Red Blood Count 5.10 M/uL (4.17-5.56) Mean Corpuscular Volume 91.6 fL (80.0-96.0) Mean Corpuscular Hemoglobin 30.8 pg (26.0-33.0) Mean Corpuscular Hemoglobin Concent 33.7 g/dL (32.0-36.0) Red Cell Distribution Width 14.4 % (11.5-14.5) Mean Platelet Volume 8.6 fL (7.2-11.1) Neutrophils (%) (Auto) 71.9 % (39.4-72.5) Lymphocytes (%) (Auto) 18.5 % (17.6-49.6) Monocytes (%) (Auto) 5.8 % (4.1-12.4) Eosinophils (%) (Auto) 2.9 % (0.4-6.7) Basophils (%) (Auto) 0.9 % (0.3-1.4) Nucleated RBC Relative Count (auto) 0.0 /100WBC Neutrophils # (Auto) 4.5 K/uL (2.0-7.4) Lymphocytes # (Auto) 1.2 K/uL (1.3-3.6) Monocytes # (Auto) 0.4 K/uL (0.3-1.0) Eosinophils # (Auto) 0.2 K/uL (0.0-0.5) Basophils # (Auto) 0.1 K/uL (0.0-0.1) Nucleated RBC Absolute Count (auto) 0.00 K/uL Sodium Level 141 mmol/L (137-145) Potassium Level 3.0 mmol/L (3.5-5.0) Chloride Level 108 mmol/L (98-107) Carbon Dioxide Level 22 mmol/L (22-31) Blood Urea Nitrogen 15 mg/dl (7-18) Creatinine 0.90 mg/dl (0.52-1.04) Glomerular Filtration Rate Calc > 60.0 Random Glucose 107 mg/dl (75-110) Calcium Level 8.4 mg/dl (8.4-10.2) Magnesium Level 2.1 mg/dl (1.7-2.2) Total Bilirubin 0.2 mg/dl (0.2-1.3) Aspartate Amino Transf (AST/SGOT) 15 U/L (0-35) Alanine Aminotransferase (ALT/SGPT) 18 U/L (0-56) Alkaline Phosphatase 86 U/L (0-126) Total Protein 6.2 g/dl (6.3-8.2) Albumin 3.5 g/dl (3.5-5.0) Salicylates Level < 10 mg/L Salicylate Last Dose Date unk Serum Alcohol < 10 mg/dl Urine Color Yellow Urine Clarity Clear Urine pH 5.0 pH (4.8-9.5) Urine Specific [place] 1.004 Urine Protein Negative mg/dL (NEGATIVE) Urine Glucose (UA) Negative mg/dL (NEGATIVE) Urine Ketones Negative mg/dL (NEGATIVE) Urine Blood Negative (NEGATIVE) Urine Nitrite Positive (NEGATIVE) Urine Bilirubin Negative (NEGATIVE) Urine Urobilinogen Negative mg/dL (0.2-1.9) Urine Leukocyte Esterase Negative (NEGATIVE) Urine RBC None /HPF (0-2/HPF) Urine WBC <1 /HPF (0-5/HPF) Urine Squamous Epithelial Cells None /LPF (NONE-FEW) Urine Bacteria Many /HPF (NONE-FEW) Urine Mucus None /HPF (NONE-FEW) Urine HCG, Qualitative Negative (NEGATIVE) Urine Opiates Screen Negative Urine Barbiturates Screen Negative Ur Tricyclic Antidepressants Screen Negative Urine Phencyclidine Screen Negative Urine Amphetamines Screen Negative Urine Benzodiazepines Screen Negative Urine Cocaine Screen Negative Urine Cannabinoids Screen Negative Chemistry Test 08/05/18 19:57 08/05/18 20:38 White Blood Count 6.3 k/uL (4.5-11.0) Red Blood Count 5.10 M/uL (4.17-5.56) Hemoglobin 15.7 g/dL (12.0-16.0) Hematocrit 46.7 % (34.0-47.0) Mean Corpuscular Volume 91.6 fL (80.0-96.0) Mean Corpuscular Hemoglobin 30.8 pg (26.0-33.0) Mean Corpuscular Hemoglobin Concent 33.7 g/dL (32.0-36.0) Red Cell Distribution Width 14.4 % (11.5-14.5) Platelet Count 171 K/uL (150-450) Mean Platelet Volume 8.6 fL (7.2-11.1) Neutrophils (%) (Auto) 71.9 % (39.4-72.5) Lymphocytes (%) (Auto) 18.5 % (17.6-49.6) Monocytes (%) (Auto) 5.8 % (4.1-12.4) Eosinophils (%) (Auto) 2.9 % (0.4-6.7) Basophils (%) (Auto) 0.9 % (0.3-1.4) Nucleated RBC Relative Count (auto) 0.0 /100WBC Neutrophils # (Auto) 4.5 K/uL (2.0-7.4) Lymphocytes # (Auto) 1.2 K/uL (1.3-3.6) Monocytes # (Auto) 0.4 K/uL (0.3-1.0) Eosinophils # (Auto) 0.2 K/uL (0.0-0.5) Basophils # (Auto) 0.1 K/uL (0.0-0.1) Nucleated RBC Absolute Count (auto) 0.00 K/uL Glomerular Filtration Rate Calc > 60.0 Calcium Level 8.4 mg/dl (8.4-10.2) Magnesium Level 2.1 mg/dl (1.7-2.2) Total Bilirubin 0.2 mg/dl (0.2-1.3) Aspartate Amino Transf (AST/SGOT) 15 U/L (0-35) Alanine Aminotransferase (ALT/SGPT) 18 U/L (0-56) Alkaline Phosphatase 86 U/L (0-126) Total Protein 6.2 g/dl (6.3-8.2) Albumin 3.5 g/dl (3.5-5.0) Salicylates Level < 10 mg/L Salicylate Last Dose Date unk Serum Alcohol < 10 mg/dl Urine Color Yellow Urine Clarity Clear Urine pH 5.0 pH (4.8-9.5) Urine Specific [place] 1.004 Urine Protein Negative mg/dL (NEGATIVE) Urine Glucose (UA) Negative mg/dL (NEGATIVE) Urine Ketones Negative mg/dL (NEGATIVE) Urine Blood Negative (NEGATIVE) Urine Nitrite Positive (NEGATIVE) Urine Bilirubin Negative (NEGATIVE) Urine Urobilinogen Negative mg/dL (0.2-1.9) Urine Leukocyte Esterase Negative (NEGATIVE) Urine RBC None /HPF (0-2/HPF) Urine WBC <1 /HPF (0-5/HPF) Urine Squamous Epithelial Cells None /LPF (NONE-FEW) Urine Bacteria Many /HPF (NONE-FEW) Urine Mucus None /HPF (NONE-FEW) Urine HCG, Qualitative Negative (NEGATIVE) Urine Opiates Screen Negative Urine Barbiturates Screen Negative Ur Tricyclic Antidepressants Screen Negative Urine Phencyclidine Screen Negative Urine Amphetamines Screen Negative Urine Benzodiazepines Screen Negative Urine Cocaine Screen Negative Urine Cannabinoids Screen Negative Toxicology Test 08/05/18 19:57 08/05/18 20:38 Salicylates Level < 10 mg/L Salicylate Last Dose Date unk Serum Alcohol < 10 mg/dl Urine Opiates Screen Negative Urine Barbiturates Screen Negative Ur Tricyclic Antidepressants Screen Negative Urine Phencyclidine Screen Negative Urine Amphetamines Screen Negative Urine Benzodiazepines Screen Negative Urine Cocaine Screen Negative Urine Cannabinoids Screen Negative Urinalysis Test 08/05/18 20:38 Urine Color Yellow Urine Clarity Clear Urine pH 5.0 pH (4.8-9.5) Urine Specific [place] 1.004 Urine Protein Negative mg/dL (NEGATIVE) Urine Glucose (UA) Negative mg/dL (NEGATIVE) Urine Ketones Negative mg/dL (NEGATIVE) Urine Blood Negative (NEGATIVE) Urine Nitrite Positive (NEGATIVE) Urine Bilirubin Negative (NEGATIVE) Urine Urobilinogen Negative mg/dL (0.2-1.9) Urine Leukocyte Esterase Negative (NEGATIVE) Urine RBC None /HPF (0-2/HPF) Urine WBC <1 /HPF (0-5/HPF) Urine Squamous Epithelial Cells None /LPF (NONE-FEW) Urine Bacteria Many /HPF (NONE-FEW) Urine Mucus None /HPF (NONE-FEW) Urine HCG, Qualitative Negative (NEGATIVE) EKG/Imaging EKG Interpretation 12 lead EKG: Rhythm: Sinus tachycardia, rate 105 [place]: normal QRS: QT prolongation ST segments: Nonspecific ED Course/Re-evaluation Clinical Indication for ER IV: Hydration, IV Access ED Course The patient had IV access and fluids started. EKG shows QT prolongation. She will need medical admission on the ICU and I am approving the title 25 emergency senior living process. Called and spoke with Dr. Zelaya, who came to the ER to evaluate the patient. Nursing did contact poison control for further recommendations. Decision to Disposition Date: Aug 05, 2018 Decision to Disposition Time: 21:30 Depart Departure Latest Vital Signs Vital Signs Date Time Temp Pulse Resp B/P (MAP) Pulse Ox O2 Delivery O2 Flow Rate FiO2 08/05/18 21:45 84 17 97/61 (73) 94 08/05/18 19:04 4.0 08/05/18 18:44 Nasal Cannula Core Temperature (Celsius): 37.50 Impression: Primary Impression: Drug overdose, intentional Additional Impressions: Suicidal ideation Substance use disorder Condition: Condition Unchanged Disposition: Admitted from ER Referrals: SHERON PEARL APRN [employer]-C (PCP) Problem Qualifiers Primary Impression: Drug overdose, intentional Encounter type: initial encounter Qualified Codes: T50.902A - Poisoning by unspecified drugs, medicaments and biological substances, intentional self- harm, initial encounter TERRI MONTERROSO MD Aug 05, 2018 18:50
[2018-08-05] MEDS ORDERED: NS(*) 0.9% 1000 ML BAG 1,000 ML IV ONE (18:59)
[2018-08-05] MEDS ORDERED: OMEP10CA40 PO (19:15)
--- NOTE | 2018-08-05 19:39 | EKG ---
FACILITY: [facility] PATIENT NAME: TUSHAR MILLER : [id number] MR: [id number] V: [id number] EXAM DATE: ORDERING PHYSICIAN: TERRI MONTERROSO TECHNOLOGIST: JOE Test Reason : SEROQUEL OVERDOSE Blood Pressure : / mmHG Vent. Rate : 105 BPM Atrial Rate : 105 BPM P-R Int : 172 ms QRS Dur : 122 ms QT Int : 392 ms P-R-T Axes : 068 -22 044 degrees QTc Int : 518 ms Sinus tachycardia Possible Lateral infarct , age undetermined Inferior infarct , age undetermined R wave progression consistent with old ant/sep [place] vs lead placement When compared with ECG of 01-SEP-2017 22:34, QT has lengthened Confirmed by NARAYAN SOUZA ([id number]) on 08/05/2018 8:50:16 PM Referred By: Confirmed By:NARAYAN SOUZA
[2018-08-05 20:05] LABS: PLATELET COUNT, AUTOMATED 171 K/uL (150-450)
[2018-08-05] MEDS ORDERED: KCL 2 MEQ/ML 20 MEQ/10 ML VIAL 20 MEQ in D5 1/2 NS(*) 1000 ML BAG 1,000 ML IV PRN (21:40)
[2018-08-05] MEDS ORDERED: INFLUENZA VIRUS VAC 0.5ML SYR IM ONLY ONE (21:40)
--- NOTE | 2018-08-05 22:01 | History & Physical ---
History of Present Illness History of Present Illness 57yo female with h/o chronic pain and depression who was brought to the ER for a quetiapine overdose. The history is from the ER staff because the patient is too sedated. Apparently, at 1730 she took 25-30 of the 200mg quetiapine tablets. She admitted that she was trying to hurt herself and so has been detained. She doesn't have any complaints when I am able to wake her up briefly. In the ER, she has been given IVF. History Problems: (1) Type II diabetes mellitus, uncontrolled Status: Chronic (2) Hypothyroid Onset Date: 01/04/2015 Status: Chronic (3) Hypercholesterolemia Status: Acute (4) Morbid obesity Onset Date: 06/03/2014 Status: Acute (5) Hypertension Status: Acute (6) Drug-seeking behavior Status: Acute (7) Depression Status: Acute Home Meds Active Scripts Spironolactone (SPIRONOLACTONE) 25 Mg Tablet, 1 TAB PO DAILY, #90 TAB 0 Refills Prov:SHERON PEARL APRN-C 07/28/18 Gabapentin (GABAPENTIN) 600 Mg Tablet, 1 TAB PO BID, #180 TAB 1 Refill Prov:SHERON PEARL APRNP-C 07/24/18 Metformin Hcl (METFORMIN HCL) 500 Mg Tablet, 1 TAB PO BID, #180 TAB 0 Refills Prov:SHERON PEARL APRNP-C 07/20/18 Levothyroxine Sodium (LEVOTHYROXINE SODIUM) 25 Mcg Tablet, 1 TAB PO QDAY, #90 TAB 0 Refills Prov:SHERON PEARL APRN-C 06/29/18 NYSTATIN 589972 UNT/ML Topical Cream (NYSTATIN 448865 UNT/ML Topical Cream) 15 Gm Cream..g., 1 AN TP BID, #60 GM 2 Refills Apply to rash under breasts until resolved Prov:SHERON PEARL APRNP-C 06/16/18 Quetiapine Fumarate (SEROQUEL) 200 Mg Tablet, 1 TAB PO QHS, #90 TAB 1 Refill Prov:SHERON PEARL APRNP-C 06/11/18 Oxybutynin Chloride (OXYBUTYNIN CHLORIDE) 5 Mg Tablet, 1 TAB PO BID, #180 TAB 1 Refill Prov:SHERON PEARL APRN [employer]ITTER [employer] REWINDER-C 05/26/18 Diclofenac Sodium 1% Gel (VOLTAREN 1% GEL) 100 Gm Gel..gram., 4 GM TOP QID PRN for PAIN, #100 GM 2 Refills as needed for right knee pain Prov:SHERON PEARL APRN [employer]ITTER AND REWINDER-C 03/06/18 Insulin Detemir 100 UN/ML PEN (Levemir Flextouch) 100 Unit/1 Ml Insuln.pen, 40 UNITS SUBQ DAILY, #1 BOX 10 Refills Prov:SHERON PEARL APRN [employer]ITTER AND REWINDER-C 11/17/17 Duloxetine Hcl (CYMBALTA) 60 Mg Capsule.dr, 1 CAP PO QDAY, #90 CAP 1 Refill Prov:SHERON PEARL APRNP-C 10/10/17 Blood Sugar Diagnostic (BLOOD GLUCOSE TEST STRIP) 1 Each Strip, 1 STRIP MC DAILY, #30 BOT 4 Refills Prov:SHERON PEARL APRN [facility] 06/02/17 Nystatin 100,000 Unit/Gm Top Powder (NYSTATIN 100,000 UNIT/GM TOP POWDER) 15 Gm Powder, 1 AN TP TID, #120 GM 1 Refill apply to perineum 3 times daily until resolved. Follow up if not improved in 2 weeks. Prov:SHERON PEARL APRN [facility]-C 02/21/17 Reported Medications Omeprazole (OMEPRAZOLE) 10 Mg Capsule.dr, 30 MG PO BID, CAP 08/05/18 Lamotrigine (LAMOTRIGINE) 100 Mg Tablet, 1 TAB PO DAILY 10/10/16 Topiramate (TOPIRAMATE) 100 Mg Tablet, 1 TAB PO DAILY 10/10/16 Discontinued Scripts Tramadol Hcl (TRAMADOL HCL) 50 Mg Tablet, 1 TAB PO TID PRN for PAIN, #21 TAB 0 Refills As needed for severe pain not releived first with tylenol and diclofenac gel. Prov:SHERON PEARL APRN [facility]-C 06/16/18 Omeprazole (OMEPRAZOLE) 40 Mg Capsule.dr, 1 CAP PO BID, #60 CAP 6 Refills Take 1 capsule twice every day 1/2 hour before eating. Prov:SHERON PEARL APRNP-C 03/19/18 [Envelope Maker Animal] No Conflict Check Prov:SHERON PEARL APRN [employer]ITTER AND REWINDER-C 03/06/18 Tizanidine Hcl (TIZANIDINE HCL) 4 Mg Tablet, 1 TAB PO TID PRN for MUSCLE SPASMS, #90 TAB 0 Refills Prov:SHERON PEARL APRN [employer]ITTER AND REWINDER-C 10/10/17 Ondansetron (ZOFRAN ODT) 4 Mg Tab.rapdis, 1 TAB SL Q12H PRN for nausea / migraine, #10 TAB.MARTIN 0 Refills Prov:SHERON PEARL APRLilly HUNTERP-C 11/01/16 Allergies: Coded Allergies: ketorolac (Verified Allergy, Intermediate, MADE SYMTOMS WORSE, 05/14/18) NSAIDS (Non-Steroidal Anti-Inflamma (Verified Allergy, Mild, Vomiting, 05/14/18) butorphanol (Verified Allergy, Mild, facial burning, 05/14/18) morphine (Verified Allergy, Unknown, 05/14/18) phenazopyridine HCl (Verified Allergy, Unknown, 05/14/18) sumatriptan succinate (Verified Allergy, Unknown, 05/14/18) Patient History: FH: depression MOTHER, , Age:60 years and older FH: diabetes mellitus MOTHER, , Age:60 years and older FH: peripheral neuropathy MOTHER, , Age:60 years and older Other Social/Family Hx Unable to obtain Hx Smoking: Yes (7-10 CIGS QDAY) Smoking Status: Current: Every Day Smoker Exposure to Second Hand Smoke?: Yes Caffeine Intake: Coffee Caffeine/Cups Per Day: 5-10 CUPS Hx Alcohol Use: No Hx Substance Use Disorder: Yes Social Drug Use: Former Social Drugs: Prescription Drugs Amount Of Social Drug/s Used: experimented years ago Review of Systems Other Unable to obtain Exam Vital Signs Vital Signs Date Time Temp Pulse Resp B/P (MAP) Pulse Ox O2 Delivery O2 Flow Rate FiO2 08/05/18 21:45 84 17 97/61 (73) 94 08/05/18 19:04 4.0 08/05/18 18:44 Nasal Cannula General Appearance: No Acute Distress (Resting comfortably. Normal work of breathing.) Neuro: Other (Very somnolent, but awakens to voice and then can briefly answer questions before falling back to sleep.) Eyes: Other (left eye laterally rotated and pupil not responsive) ENT: Moist Mucous Membranes Cardiovascular: Regular Rate and Rhythm Respiratory: Clear to Auscultation GI: Abd Soft and Non-Tender Extremities: No Edema Integumentary: No Jaundice, No Cyanosis Medical Decision Making Data Points Result Diagram: 08/05/18195608/05/181956 Item Value Date Time Neutrophils (%) (Auto) 71.9 % 08/05/181956 Lymphocytes (%) (Auto) 18.5 % 08/05/181956 Monocytes (%) (Auto) 5.8 % 08/05/181956 Eosinophils (%) (Auto) 2.9 % 08/05/181956 Basophils (%) (Auto) 0.9 % 08/05/181956 Nucleated RBC Relative Count (auto) 0.0 /100WBC 08/05/181956 Neutrophils # (Auto) 4.5 K/uL 08/05/181956 Total Bilirubin 0.2 mg/dl 08/05/181956 Aspartate Amino Transf (AST/SGOT) 15 U/L 08/05/181956 Alanine Aminotransferase (ALT/SGPT) 18 U/L 08/05/181956 Alkaline Phosphatase 86 U/L 08/05/181956 Urine Nitrite Positive H 08/05/182037 Urine WBC <1 /HPF 08/05/182037 Urine Bacteria Many /HPF H 08/05/182037 Urine Squamous Epithelial Cells None /LPF 08/05/182037 Serum Alcohol < 10 mg/dl 08/05/181956 Acetaminophen Level < 10 ug/ml 08/05/181956 Salicylates Level < 10 mg/L 08/05/181956 Urine Opiates Screen Negative 08/05/182037 Urine Barbiturates Screen Negative 08/05/182037 Ur Tricyclic Antidepressants Screen Negative 08/05/182037 Urine Phencyclidine Screen Negative 08/05/182037 Urine Amphetamines Screen Negative 08/05/182037 Urine Benzodiazepines Screen Negative 08/05/182037 Urine Cocaine Screen Negative 08/05/182037 Urine Cannabinoids Screen Negative 08/05/182037 Urine HCG, Qualitative Negative 08/05/182037 EKG / Imaging EKG Interpretation Vent. Rate : 105 BPM Atrial Rate : 105 BPM P-R Int : 172 ms QRS Dur : 122 ms QT Int : 392 ms P-R-T Axes : 068 -22 044 degrees QTc Int : 518 ms Sinus tachycardia Possible Lateral infarct , age undetermined Inferior infarct , age undetermined R wave progression consistent with old ant/sep [place] vs lead placement When compared with ECG of 01-SEP-2017 22:34, QT has lengthened Confirmed by NARAYAN SOUZA ([id number]) on 08/05/2018 8:50:16 PM Assessment and Plan Problems: (1) Intentional overdose of drug in tablet form Status: Acute Assessment & Plan: She presented a couple hours after ingesting 25-30 pills of quetiapine 200mg. She ingested them at 1730 with the intent to hurt herself. She is very somnolent, but awakens to voice. She initially was tachycardic, but it has improved. Her SBP is in the 90's-100's. Her QRS is 122, but her baseline appears about 114. She has been emergently detained. She will be watched on telemetry in the ICU. Repeat APAP level and ECG are pending. Will replace her potassium. (2) GERD (gastroesophageal reflux disease) Status: Chronic Assessment & Plan: Chronically on a PPI, so will use IV Protonix while mental status impaired. (3) Bipolar disorder Status: Chronic Assessment & Plan: Holding quetiapine, topiramate and lamotrigine. (4) Type II diabetes mellitus, uncontrolled Status: Chronic Assessment & Plan: Holding chronic metformin and Levemir. Will check glucose AC and HS with SSI level 2 to cover. (5) Chronic neck pain Status: Chronic Assessment & Plan: Holding chronic Cymbalta and Gabapentin until mental status improves. (6) Hypothyroid Onset Date: 01/04/2015 Status: Chronic Assessment & Plan: Holding chronic levothyroxine until can safely take pills. Copies to: SHERON PEARL APRN [employer]ITTER AND REWINDER-C ; Venous Thromboembolism Antithrombotics Is Pt On Any Antithrombotics?: No Exam Sepsis Risk: No Definite Risk NARAYAN SOUZA MD Aug 05, 2018 22:01
--- NOTE | 2018-08-05 22:50 | EKG ---
FACILITY: [facility] PATIENT NAME: TUSHAR MILLER : [id number] MR: [id number] V: [id number] EXAM DATE: ORDERING PHYSICIAN: NARAYAN SOUZA TECHNOLOGIST: JOE Test Reason : OD Blood Pressure : / mmHG Vent. Rate : 081 BPM Atrial Rate : 081 BPM P-R Int : 184 ms QRS Dur : 130 ms QT Int : 422 ms P-R-T Axes : 068 -17 063 degrees QTc Int : 490 ms Normal sinus rhythm Nonspecific intraventricular block T inversion consistent with septal ischemia vs normal variant Cannot rule out Anterior infarct (cited on or before 05-AUG-2018) QTc prolonged When compared with ECG of 05-AUG-2018 19:13, QTc has shortened, but is still prolonged QRS has prolonged Confirmed by NARAYAN SOUZA ([id number]) on 08/06/2018 6:35:16 AM Referred By: Confirmed By:NARAYAN SOUZA
[2018-08-05] MEDS: SODIUM BICAR 8.4%* 50 MEQ/50ML 150 MEQ in D5W(*) 1000 ML BAG 1,000 ML IV SCH (22:56)
[2018-08-05] MEDS: KCL (*) 20 MEQ/100 ML PREMIX 100 ML IV SCH (22:56)
--- NOTE | 2018-08-05 23:51 | BHS - Psychiatric Evaluation ---
ER - Title 25 MHE Evaluation Title 25 Evaluation Patient Detained By: Law Enforcement Referral Source: Patient and law enforcement Date Patient Detained: Aug 05, 2018 Time Patient Detained: 18:51 Date Nursing Home Expires: Aug 10, 2018 Time Nursing Home Expires: 18:51 Legal Status: Police Hold: No Legal Status: Residence: [facility] Resident Assessment Data Provided By: Patient, Law Enforcement HPI/ROS: HISTORY OF PRESENT ILLNESS: This is a 57 year old female. She is suicidal at this time and was trying to kill herself. Took about 25-30 of the 200mg Seroquel. Is very groggy at this time. Has been suicidal starting today. She is under an emergency fpc by [place] [employer]. She has no other complaints other than her chronic low back pain that she has. Other information is limited at this time because of how groggy she is. She denies any other self harm today, including no other medications taken. Denies other pain including chest pain. She is a little short of breath. Admit due to SI or Attempt: Yes Suicide Plan: Has Plan with Access Alcohol or Drugs Involved: No Is Patient Info Reliable: Yes Is Collateral Info Reliable: Yes Mental Status Exam General Appearance: Psychomotor Retardation Speech: Slurred Mood: Dysthmic/Depressed Affect: Sad Thought Process: Other (slow due to sedation effect) Thought Content: Suicidal Ideation; No Homicidal Ideation Sensorium: Other (clouded/sedated) Cognition: Alert & Oriented-Person, Alert & Oriented-Place, Alert & Oriented- Time, Hmjwo-Hwmviniv-Jvpqwgdvt Insight Judgment: Fair Current Risk & History Current Dangerous Risk Assessm: Current Suicide Ideation, Current Suicide Attempt Past Dangerous Risk Assessm: Suicide Ideation-last 6mo Previous Suicide Attempt: No Previous Attempt Previous Psychiatric Illness: Yes Previous Psychiatric Treatment: Yes Risk Assessment & Disposition Evaluated Risk Assessment: High risk, current attempt Impression: Primary Impression: Drug overdose, intentional Additional Impressions: Suicidal ideation Substance use disorder Meets Mental Illness Req.: Yes Meets Dangerousness Req.: Yes Emergency Nursing Home to be: Upheld Date of Decision: Aug 05, 2018 Time of Decision: 19:30 Patient is Medically Stable at: No Disposition: ICU Problem Qualifiers Primary Impression: Drug overdose, intentional Encounter type: initial encounter Qualified Codes: T50.902A - Poisoning by unspecified drugs, medicaments and biological substances, intentional self- harm, initial encounter TERRI MONTERROSO MD Aug 05, 2018 23:51
[2018-08-06] VITALS (50 sets, daily range): BP systolic 86–142; BP diastolic 57–87
[2018-08-06] MEDS: KCL (*) 20 MEQ/100 ML PREMIX 100 ML IV SCH ×5 (01:02→20:09)
[2018-08-06] MEDS: NYSTATIN 100,000 U/GM PWD 15GM TP PRN ×2 (05:11→20:10)
[2018-08-06 05:41] LABS: PLATELET COUNT, AUTOMATED 153 K/uL (150-450)
--- NOTE | 2018-08-06 05:47 | EKG ---
FACILITY: [facility] - [place] PATIENT NAME: TUSHAR MILLER : [id number] MR: [id number] V: [id number] EXAM DATE: ORDERING PHYSICIAN: NARAYAN SOUZA TECHNOLOGIST: JOE Test Reason : AM EKG Blood Pressure : / mmHG Vent. Rate : 091 BPM Atrial Rate : 091 BPM P-R Int : 208 ms QRS Dur : 128 ms QT Int : 404 ms P-R-T Axes : 072 -21 053 degrees QTc Int : 496 ms Normal sinus rhythm with 1st degree AV block Nonspecific intraventricular block T inversion consistent with septal ischemia vs normal variant QTc prolonged When compared with ECG of 05-AUG-2018 22:22, Now with 1st degree AV block Confirmed by NARAYAN SOUZA ([id number]) on 08/06/2018 6:36:42 AM Referred By: Confirmed By:NARAYAN SOUZA
[2018-08-06] MEDS: SODIUM BICAR 8.4%* 50 MEQ/50ML 150 MEQ in D5W(*) 1000 ML BAG 1,000 ML IV SCH (06:20)
[2018-08-06] MEDS ORDERED: PANTOPRAZOLE SOD 40 MG IV VIAL IVP SCH (09:00)
[2018-08-06] MEDS ORDERED: ENOXAPARIN 40 MG/0.4ML SYR SC SCH (09:00)
[2018-08-06] MEDS: INSULIN HUM LISPRO 100 UN/ML 3 ML VIAL SUBQ PRN ×2 (09:10→12:32)
--- NOTE | 2018-08-06 10:27 | Hospitalist Progress Note ---
Subjective Progress Notes Subjective 57F admitted for overdose. Remains lethargic, arousable briefly. Physical Exam Vital Signs Date Time Temp Pulse Resp B/P (MAP) Pulse Ox O2 Delivery O2 Flow Rate FiO2 08/06/18 09:56 93 08/06/18 09:30 99.0 15 117/72 (87) 90 Bi-PAP 40.0 08/06/18 06:15 4.0 Intake and Output 08/06/18 07:00 Intake Total 2264 ml Output Total 1650 ml Balance 614 ml Intake IV Total 2264 ml Output Urine Total 1650 ml General Appearance: No Acute Distress Neuro: No Gross deficits ENT: Normal Cardiovascular: Normal Rhythm & Peripheral Pulses Respiratory: Clear to Auscultation, Other (on BiPAP) GI: Soft and Non-Tender Extremities: Warm, Pulses; No Edema Integumentary: Skin Intact without Lesion / Mass Result Diagram: 08/06/18 05008/06/18 050 Assessment and Plan Problems: (1) Intentional overdose of drug in tablet form Status: Acute Assessment & Plan: She presented a couple hours after ingesting 25-30 pills of quetiapine 200mg. She ingested them at 1730 with the intent to hurt herself. She is very somnolent, but awakens to voice. She initially was tachycardic, but it has improved. Her QRS is prolonged, but her baseline appears about 114. She has been emergently detained. She will be watched on telemetry in the ICU, monitor EKG periodically. (2) GERD (gastroesophageal reflux disease) Status: Chronic Assessment & Plan: Chronically on a PPI, so will use IV Protonix while mental status impaired. (3) Bipolar disorder Status: Chronic Assessment & Plan: Holding quetiapine, topiramate and lamotrigine. (4) Type II diabetes mellitus, uncontrolled Status: Chronic Assessment & Plan: Holding chronic metformin and Levemir. Will check glucose AC and HS with SSI level 2 to cover. (5) Chronic neck pain Status: Chronic Assessment & Plan: Holding chronic Cymbalta and Gabapentin until mental status improves. (6) Hypothyroid Onset Date: 01/04/2015 Status: Chronic Assessment & Plan: Holding chronic levothyroxine until can safely take pills. Exam Sepsis Risk: No Definite Risk EATON DEBBY WELCH DO Aug 06, 2018 10:27
[2018-08-06] MEDS ORDERED: OMEP40CA48 PO (10:35)
[2018-08-06] MEDS ORDERED: LEVOTHYROXINE SOD 100 MCG VIAL IVP SCH (12:00)
--- NOTE | 2018-08-06 12:23 | EKG ---
FACILITY: [facility] - [place] PATIENT NAME: TUSHAR MILLER : [id number] MR: [id number] V: [id number] EXAM DATE: ORDERING PHYSICIAN: DEBBY WELCH TECHNOLOGIST: Test Reason : Blood Pressure : / mmHG Vent. Rate : 094 BPM Atrial Rate : 094 BPM P-R Int : 194 ms QRS Dur : 110 ms QT Int : 400 ms P-R-T Axes : 068 -04 047 degrees QTc Int : 500 ms Normal sinus rhythm Low voltage QRS Possible Inferior infarct , age undetermined Prolonged QT Abnormal ECG When compared with ECG of 06-AUG-2018 05:32, QRS duration has decreased Confirmed by Debby Stoner ([id number]) on 08/06/2018 10:34:00 PM Referred By: Confirmed By:Debby Welch
--- NOTE | 2018-08-06 13:15 | BHS - Psychiatric Evaluation ---
ER - Title 25 MHE Evaluation Title 25 Evaluation Patient Detained By: Physician, Law Enforcement Referral Source: Professional: Law Enforcement Date Patient Detained: Aug 05, 2018 Time Patient Detained: 18:51 Date Chcf Expires: Aug 10, 2018 Time Chcf Expires: 18:51 Legal Status: Police Hold: No Legal Status: Residence: [facility] Resident Assessment Data Provided By: Law Enforcement ( form), Other Source HPI/ROS: This is the ER Physician, Dr. Alonzo accont of patient when she first was brought to the ER by Law Enforcement, "HISTORY OF PRESENT ILLNESS: This is a 57 year old female. She is suicidal at this time and was trying to kill herself. Took about 25-30 of the 200mg Seroquel. Is very groggy at this time. Has been suicidal starting today. She is under an emergency skilled nursing by [place] [employer]. She has no other complaints other than her chronic low back pain that she has. Other information is limited at this time because of how groggy she is. She denies any other self harm today, including no other medications taken. Denies other pain including chest pain. She is a little short of breath." Admit due to SI or Attempt: Yes Suicide Plan: Has Plan with Access Alcohol or Drugs Involved: No Is Patient Info Reliable: No (Patient is unable to attest to current presence or absence of suicidal thoughts/plans. She does not awaken in the ICU to talk to this interviewer, she is too groggy and needs to stabilize before she can wake up and easily converse.) Is Collateral Info Reliable: Yes ( and medical staff at [facility]) Current Home Psych Meds: Seroquil Mental Status Exam General Appearance: Psychomotor Retardation, Other (Help with breathing, and asleep.) Speech: Other (No speech at this time ) Mood: Other (unable to determine at this time.) Cognition: No Alert & Oriented-Person, No Alert & Oriented-Place, No Alert & Oriented-Time, No Khepl-Ggnvbmil-Dlvgpfukl Insight Judgment: Poor (Overdose of medication consitutes poor judgement. ) Sleep: Hypersomnia Current Risk & History Current Dangerous Risk Assessm: Current Suicide Attempt, Self-Injurious Behaviors Past Dangerous Risk Assessm: Other (Unknown) Previous Suicide Attempt: No Previous Attempt (Unknown at this time.) Previous Psychiatric Illness: Yes (Unable to ask patient about this at this time, but it is known by a provider that patient consistently attends treatment at [facility].) Previous Psychiatric Treatment: Yes (Unable to ask patient about this at this time.) Risk Assessment & Disposition Evaluated Risk Assessment: Risk cannot be evaluated at this time. Patient is unable to attest to current presence or absence of suicidal thoughts/plans. She does not awaken in the ICU to talk to this interviewer, she is too groggy and needs to stabilize before she can wake up and easily converse. Impression: Primary Impression: Drug overdose, intentional Additional Impressions: Suicidal ideation Substance use disorder Meets Mental Illness Req.: No Meets Dangerousness Req.: No (Unknown) Emergency Chcf to be: Lifted Decision Comment: Risk cannot be evaluated at this time. Patient is unable to attest to current presence or absence of suicidal thoughts/plans. She does not awaken in the ICU to talk to this interviewer, she is too groggy and needs to stabilize before she can wake up and easily converse. Date of Decision: Aug 06, 2018 Time of Decision: 13:15 Patient is Medically Stable at: No Disposition: ICU Problem Qualifiers Primary Impression: Drug overdose, intentional Encounter type: initial encounter Qualified Codes: T50.902A - Poisoning by unspecified drugs, medicaments and biological substances, intentional self- harm, initial encounter JOSEF FLOREZ LPC Aug 06, 2018 13:15
[2018-08-06] MEDS ORDERED: LR(*) 1000 ML BAG 1,000 ML IV SCH (14:00)
--- NOTE | 2018-08-06 20:32 | EKG ---
FACILITY: [facility] PATIENT NAME: TUSHAR MILLER : [id number] MR: [id number] V: [id number] EXAM DATE: ORDERING PHYSICIAN: DEBBY HUI TECHNOLOGIST: KEYUR Hernández Reason : Blood Pressure : / mmHG Vent. Rate : 084 BPM Atrial Rate : 084 BPM P-R Int : 198 ms QRS Dur : 114 ms QT Int : 392 ms P-R-T Axes : 068 003 048 degrees QTc Int : 463 ms Normal sinus rhythm Low voltage QRS Borderline ECG When compared with ECG of 06-AUG-2018 12:15, No significant change was found Confirmed by Debby Stoner ([id number]) on 08/06/2018 11:01:07 PM Referred By: Confirmed By:Debby Hui
[2018-08-06] MEDS: ACETAMINOPHEN 500 MG TAB PO PRN (21:15)
[2018-08-07] VITALS: BP 134/78
[2018-08-07] MEDS: INSULIN HUM LISPRO 100 UN/ML 3 ML VIAL SUBQ PRN ×2 (00:11→11:48)
[2018-08-07] MEDS: LR(*) 1000 ML BAG 1,000 ML IV SCH ×2 (00:33→08:25)
[2018-08-07 02:00] VITALS: BP 117/67
[2018-08-07 04:00] VITALS: BP 120/63
--- NOTE | 2018-08-07 05:28 | EKG ---
FACILITY: [facility] - [place] PATIENT NAME: TUSHAR MILLER : [id number] MR: [id number] V: [id number] EXAM DATE: ORDERING PHYSICIAN: DEBBY WELCH TECHNOLOGIST: CARY Test Reason : Blood Pressure : / mmHG Vent. Rate : 081 BPM Atrial Rate : 081 BPM P-R Int : 190 ms QRS Dur : 120 ms QT Int : 394 ms P-R-T Axes : 068 003 042 degrees QTc Int : 457 ms Normal sinus rhythm Low voltage QRS Nonspecific intraventricular conduction delay Borderline ECG When compared with ECG of 08.06.2018 No significant change was found Confirmed by Debby Stoner ([id number]) on 08/07/2018 6:32:25 AM Referred By: Confirmed By:Debby Welch
[2018-08-07 05:29] LABS: PLATELET COUNT, AUTOMATED 153 K/uL (150-450)
[2018-08-07] MEDS ORDERED: LEVOTHYROXINE SOD 0.025 MG TAB PO SCH (06:00)
[2018-08-07 06:18] VITALS: BP 139/87
[2018-08-07 08:44] VITALS: BP 109/74
[2018-08-07] MEDS: NYSTATIN 100,000 U/GM PWD 15GM TP PRN (08:47)
[2018-08-07] MEDS: ACETAMINOPHEN 500 MG TAB PO PRN (08:47)
[2018-08-07] MEDS ORDERED: GABAPENTIN 300 MG CAP PO SCH (09:00)
[2018-08-07] MEDS ORDERED: lamoTRIgine 100 MG TAB PO SCH ×2 (09:00)
[2018-08-07] MEDS ORDERED: DULoxetine HCL 30 MG CAPCR PO SCH (09:00)
[2018-08-07] MEDS ORDERED: ENOXAPARIN 40 MG/0.4ML SYR SC SCH (09:00)
[2018-08-07] MEDS ORDERED: PANTOPRAZOLE SOD 40 MG TABEC PO SCH (09:00)
[2018-08-07] MEDS ORDERED: INSULIN DETEMIR 100 U/ML 3 ML PEN SUBQ SCH (09:00)
--- NOTE | 2018-08-07 13:42 | Hospitalist Depart ---
Discharge Summary Reason for Hosp/Final Diag: (1) Intentional overdose of drug in tablet form Status: Acute Hospital Course & Plan: She presented a couple hours after ingesting 25-30 pills of quetiapine 200mg. She was placed on an emergency detainment and monitored in the ICU overnight. She was alert and oriented on the day of discharge. She has been seen by psychiatry and is cleared to discharge and follow up through [facility]. (2) GERD (gastroesophageal reflux disease) Status: Chronic Hospital Course & Plan: She is on chronic treatment with Prilosec. (3) Bipolar disorder Status: Chronic Hospital Course & Plan: She is on chronic treatment with quetiapine, topiramate and lamotrigine. We will defer any changes to psychiatry. (4) Type II diabetes mellitus, uncontrolled Status: Chronic Hospital Course & Plan: She is on chronic treatment with metformin and Levemir. (5) Hypothyroid Onset Date: 01/04/2015 Status: Chronic Hospital Course & Plan: She is on chronic treatment with Synthroid. Departure Latest Vital Signs Vital Signs 08/06/18 08/07/18 08/07/18 08/07/18 08/07/18 20:30 06:18 08:44 11:40 12:00 Temp 98.2 Pulse 105 Resp 15 B/P (MAP) 109/74 (86) Pulse Ox 91 O2 Delivery Room Air O2 Flow Rate 4.0 FiO2 40.0 Weight (Pounds): 274 Weight (Ounces): 8.0 Result Diagram: 08/07/1851508/07/18515 Condition: Improved Discharge: Home, Self Care Discharge Instructions Home Meds Active Scripts Spironolactone (SPIRONOLACTONE) 25 Mg Tablet, 1 TAB PO DAILY, #90 TAB 0 Refills Prov:SHERON PEARL APRNP-C 07/28/18 Gabapentin (GABAPENTIN) 600 Mg Tablet, 1 TAB PO BID, #180 TAB 1 Refill Prov:SHERON PEARL APRN [employer]-C 07/24/18 Metformin Hcl (METFORMIN HCL) 500 Mg Tablet, 1 TAB PO BID, #180 TAB 0 Refills Prov:SHERON PEARL APRN [employer]-C 07/20/18 Levothyroxine Sodium (LEVOTHYROXINE SODIUM) 25 Mcg Tablet, 1 TAB PO QDAY, #90 TAB 0 Refills Prov:SHERON PEARL APRNP-C 06/29/18 NYSTATIN 582332 UNT/ML Topical Cream (NYSTATIN 764683 UNT/ML Topical Cream) 15 Gm Cream..g., 1 AN TP BID, #60 GM 2 Refills Apply to rash under breasts until resolved Prov:SHERON PEARL APRNP-C 06/16/18 Quetiapine Fumarate (SEROQUEL) 200 Mg Tablet, 1 TAB PO QHS, #90 TAB 1 Refill Prov:SHERON PEARL APRNP-C 06/11/18 Oxybutynin Chloride (OXYBUTYNIN CHLORIDE) 5 Mg Tablet, 1 TAB PO BID, #180 TAB 1 Refill Prov:SHERON PEARL APRN-C 05/26/18 Diclofenac Sodium 1% Gel (VOLTAREN 1% GEL) 100 Gm Gel..gram., 4 GM TOP QID PRN for PAIN, #100 GM 2 Refills as needed for right knee pain Prov:SHERON PEARL APRN-C 03/06/18 Insulin Detemir 100 UN/ML PEN (Levemir Flextouch) 100 Unit/1 Ml Insuln.pen, 40 UNITS SUBQ DAILY, #1 BOX 10 Refills Prov:SHERON PEARL APRN-C 11/17/17 Duloxetine Hcl (CYMBALTA) 60 Mg Capsule.dr, 1 CAP PO QDAY, #90 CAP 1 Refill Prov:SHERON PEARL APRN-C 10/10/17 Blood Sugar Diagnostic (BLOOD GLUCOSE TEST STRIP) 1 Each Strip, 1 STRIP MC DAILY, #30 BOT 4 Refills Prov:SHERON PEARL APRNP-C 06/02/17 Nystatin 100,000 Unit/Gm Top Powder (NYSTATIN 100,000 UNIT/GM TOP POWDER) 15 Gm Powder, 1 AN TP TID, #120 GM 1 Refill apply to perineum 3 times daily until resolved. Follow up if not improved in 2 weeks. Prov:SHERON PEARL APRN [employer]-C 02/21/17 Reported Medications Omeprazole (OMEPRAZOLE) 40 Mg Capsule.dr, 40 MG PO BID, CAP 08/06/18 Lamotrigine (LAMOTRIGINE) 100 Mg Tablet, 1 TAB PO DAILY 10/10/16 Topiramate (TOPIRAMATE) 100 Mg Tablet, 1 TAB PO DAILY 10/10/16 Discontinued Reported Medications Omeprazole (OMEPRAZOLE) 10 Mg Capsule.dr, 30 MG PO BID, CAP 08/05/18 Discontinued Scripts Tramadol Hcl (TRAMADOL HCL) 50 Mg Tablet, 1 TAB PO TID PRN for PAIN, #21 TAB 0 Refills As needed for severe pain not releived first with tylenol and diclofenac gel. Prov:SHERON PEARL APRNP-C 06/16/18 Omeprazole (OMEPRAZOLE) 40 Mg Capsule.dr, 1 CAP PO BID, #60 CAP 6 Refills Take 1 capsule twice every day 1/2 hour before eating. Prov:SHERON PEARL APRN-Joanne 03/19/18 [Geological Aide Animal] No Conflict Check Prov:SHERON PEARL APRN-C 03/06/18 Tizanidine Hcl (TIZANIDINE HCL) 4 Mg Tablet, 1 TAB PO TID PRN for MUSCLE SPASMS, #90 TAB 0 Refills Prov:SHERON PEARL APRNP-Joanne 10/10/17 Ondansetron (ZOFRAN ODT) 4 Mg Tab.rapdis, 1 TAB SL Q12H PRN for nausea / migraine, #10 TAB.MARTIN 0 Refills Prov:SHERON PEARL APRNP-C 11/01/16 Diet: Diabetic Activity: As Tolerated Venous Thromboembolism Antithrombotics Is Pt On Any Antithrombotics?: No ALEXANDRE MOSLEY DO Aug 07, 2018 13:42
== END 2018-08-07 15:15 | disposition home or self-care (01) | DRG 918 ==
LOC: ER 18:49 → ICU 21:54
PROVIDERS: ADMIT Internal Medicine; ATTEND Internal Medicine
PROC: 5A09357 Assistance with Respiratory Ventilation, Less than 24 Consecutive Hours, Continuous Positive Airway Pressure (ICD-10-PCS; principal; 2018-08-06)
DX: T43.592A Poisoning by other antipsychotics and neuroleptics, intentional self-harm, initial encounter (principal); R45.851 Suicidal ideations; E66.01 Morbid (severe) obesity due to excess calories; K21.9 Gastro-esophageal reflux disease without esophagitis; E11.9 Type 2 diabetes mellitus without complications; G89.29 Other chronic pain; F31.9 Bipolar disorder, unspecified; E03.9 Hypothyroidism, unspecified; F17.210 Nicotine dependence, cigarettes, uncomplicated; Z88.8 Allergy status to other drugs, medicaments and biological substances; Z88.5 Allergy status to narcotic agent; Z79.4 Long term (current) use of insulin; Z90.49 Acquired absence of other specified parts of digestive tract; Z76.5 Malingerer [conscious simulation]; Z79.84 Long term (current) use of oral hypoglycemic drugs
CPT/HCPCS: 36415; 36416; 36600; 80305; 80320; 80329; 81001; 81025; 82040; 82247; 82310; 82374; 82435; 82565; 82803; 82947; 82948; 83735; 84075; 84132; 84155; 84295; 84443; 84450; 84460; 84520; 85025; 93005; 94660; 96360; 96361; 99284; A9270; C1758; C9113; J1650; J1815; J3480; J7030; J7070; J7120

== ENCOUNTER → 2018-08-05 | Outpatient (CLI) | payer MEDICARE, MEDICAID ==
[~2018-08-05] MED LIST changes: +OMEP10CA40 PO
== END ==
LOC: AMB 18:19
PROVIDERS: ATTEND Nurse Practitioner
DX: T14.91XA Suicide attempt, initial encounter (principal)
CPT/HCPCS: A0425; A0427

== ENCOUNTER 2018-09-12 17:34 | Emergency (ER) | payer MEDICARE, MEDICAID ==
[~2018-09-12 17:34] MED LIST changes: -LURA60TA PO
[2018-09-12 17:35] VITALS: BP 119/53
[2018-09-12] MEDS ORDERED: LURA60TA PO (17:40)
--- NOTE | 2018-09-12 17:43 | ER Report ---
History and Physical Time Seen By MD: 17:44 Hx. of Stated Complaint: CHEST PAIN HPI/ROS CHIEF COMPLAINT: Chest pain HISTORY OF PRESENT ILLNESS: 58-year-old female patient presents to emergency room with complaint of chest pain. Patient states the pain started approximately 4:30 this afternoon. She states that she had taken her insulin this morning, she is unsure how much. She states that she had just dilated and injected it with paying any attention. She states she was in her a. She states that this afternoon she developed "swirly in her head". She states that the swirly sensation is worse with standing up quickly or turning her head quickly. She states that after that occurred that she developed this chest pain. She states that initially was hard to breathe, however she states that that has resolved as of this time. She states she was having pain that radiated down the left arm. She denies having any numbness or tingling. Patient states that she does not have any symptoms of having a heart attack. She is more concerned about the swirly her head and the insulin shock in which she had cause. REVIEW OF SYSTEMS: Respiratory: No cough, no dyspnea. Cardiovascular: As noted above Gastrointestinal: No vomiting, no abdominal pain. Musculoskeletal: No back pain. Allergies: Coded Allergies: ketorolac (Verified Allergy, Intermediate, MADE SYMTOMS WORSE, 09/12/18) NSAIDS (Non-Steroidal Anti-Inflamma (Verified Allergy, Mild, Vomiting, 09/12/18) butorphanol (Verified Allergy, Mild, facial burning, 09/12/18) morphine (Verified Allergy, Unknown, 09/12/18) phenazopyridine HCl (Verified Allergy, Unknown, 09/12/18) sumatriptan succinate (Verified Allergy, Unknown, 09/12/18) Home Meds Active Scripts Quetiapine Fumarate (SEROQUEL) 200 Mg Tablet, 1 TAB PO QHS, #5 TAB 0 Refills Prov:SHERON PEARL APRN-C 08/14/18 Spironolactone (SPIRONOLACTONE) 25 Mg Tablet, 1 TAB PO DAILY, #90 TAB 0 Refills Prov:SHERON PEARL APRN-C 07/28/18 Gabapentin (GABAPENTIN) 600 Mg Tablet, 1 TAB PO BID, #180 TAB 1 Refill Prov:SHERON PEARL APRNP- 07/24/18 Metformin Hcl (METFORMIN HCL) 500 Mg Tablet, 1 TAB PO BID, #180 TAB 0 Refills Prov:SHERON PEARL APRN [facility] 07/20/18 Levothyroxine Sodium (LEVOTHYROXINE SODIUM) 25 Mcg Tablet, 1 TAB PO QDAY, #90 TAB 0 Refills Prov:SHERON PEARL APRN [facility] 06/29/18 NYSTATIN 474403 UNT/ML Topical Cream (NYSTATIN 995458 UNT/ML Topical Cream) 15 Gm Cream..g., 1 AN TP BID, #60 GM 2 Refills Apply to rash under breasts until resolved Prov:SHERON PEARL APRN [facility] 06/16/18 Oxybutynin Chloride (OXYBUTYNIN CHLORIDE) 5 Mg Tablet, 1 TAB PO BID, #180 TAB 1 Refill Prov:SHERON PEARL APRN [facility] 05/26/18 Diclofenac Sodium 1% Gel (VOLTAREN 1% GEL) 100 Gm Gel..gram., 4 GM TOP QID PRN for PAIN, #100 GM 2 Refills as needed for right knee pain Prov:SHERON PEARL APRN [facility] 03/06/18 Insulin Detemir 100 UN/ML PEN (Levemir Flextouch) 100 Unit/1 Ml Insuln.pen, 40 UNITS SUBQ DAILY, #1 BOX 10 Refills Prov:SHERON PEARL APRN [facility] 11/17/17 Duloxetine Hcl (CYMBALTA) 60 Mg Capsule.dr, 1 CAP PO QDAY, #90 CAP 1 Refill Prov:SHERON PEARL APRN [facility] 10/10/17 Blood Sugar Diagnostic (BLOOD GLUCOSE TEST STRIP) 1 Each Strip, 1 STRIP MC DAILY, #30 BOT 4 Refills Prov:SHERON PEARL APRN [facility] 06/02/17 Reported Medications Lurasidone Hcl (LATUDA) 60 Mg Tablet, 1 TAB PO DAILY 09/12/18 Omeprazole (OMEPRAZOLE) 40 Mg Capsule.dr, 40 MG PO DAILY, CAP 08/06/18 Lamotrigine (LAMOTRIGINE) 100 Mg Tablet, 1 TAB PO DAILY 10/10/16 Topiramate (TOPIRAMATE) 100 Mg Tablet, 1 TAB PO DAILY 10/10/16 Discontinued Scripts Nystatin 100,000 Unit/Gm Top Powder (NYSTATIN 100,000 UNIT/GM TOP POWDER) 15 Gm Powder, 1 AN TP TID, #120 GM 1 Refill apply to perineum 3 times daily until resolved. Follow up if not improved in 2 weeks. Prov:SHERON PEARL TAMIKO MEDICAL PRACTICE ASSISTANT-C 02/21/17 Past Medical/Surgical History Patient has a past medical history of migraines, hypertension, hyperlipidemia, asthma, pneumonia, duodenal ulcer, reflux, arthritis, fractures, back pain, diabetes, hypothyroidism, substance abuse, schizophrenia, depression, suicide attempt. 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 Patient has a family medical history of cancer, psychiatric problems. Reviewed Nurses Notes: Yes Hx Smoking: Yes (7-10 CIGS QDAY) Smoking Status: Current: Every Day Smoker Exposure to Second Hand Smoke?: Yes Hx Substance Use Disorder: Yes Hx Alcohol Use: No Constitutional Vital Sign - Last 24 Hours 09/12/18 17:35 Temp 98.7 Pulse 75 Resp 20 B/P (MAP) 119/53 Pulse Ox 91 O2 Delivery Room Air Physical Exam General Appearance: The patient is alert, has no immediate need for airway protection and no current signs of toxicity. Eyes: Pupils equal and round no injection. Extraocular movements intact. Respiratory: Chest is non tender, lungs are clear to auscultation. Cardiac: regular rate and rhythm Gastrointestinal: Abdomen is soft and non tender, no masses, bowel sounds normal. Musculoskeletal: Neck: Neck is supple and non tender. Extremities have full range of motion and are non tender. Skin: No rashes or lesions. DIFFERENTIAL DIAGNOSIS: After history and physical exam differential diagnosis was considered for chest pain including but not limited to myocardial ischemia, pericarditis pulmonary embolus, chest wall pain, pleural inflammation and pulmonary infectious causes. Medical Decision Making Data Points Result Diagram: 09/12/18 0000 09/12/18 0000 Laboratory Hematology Test 09/12/18 00:00 09/12/18 17:40 09/12/18 18:04 Red Blood Count 5.80 M/uL (4.17-5.56) Mean Corpuscular Volume 90.5 fL (80.0-96.0) Mean Corpuscular Hemoglobin 30.7 pg (26.0-33.0) Mean Corpuscular Hemoglobin Concent 34.0 g/dL (32.0-36.0) Red Cell Distribution Width 14.7 % (11.5-14.5) Mean Platelet Volume 8.9 fL (7.2-11.1) Neutrophils (%) (Auto) 75.8 % (39.4-72.5) Lymphocytes (%) (Auto) 14.7 % (17.6-49.6) Monocytes (%) (Auto) 6.7 % (4.1-12.4) Eosinophils (%) (Auto) 2.3 % (0.4-6.7) Basophils (%) (Auto) 0.5 % (0.3-1.4) Nucleated RBC Relative Count (auto) 0.1 /100WBC Neutrophils # (Auto) 5.7 K/uL (2.0-7.4) Lymphocytes # (Auto) 1.1 K/uL (1.3-3.6) Monocytes # (Auto) 0.5 K/uL (0.3-1.0) Eosinophils # (Auto) 0.2 K/uL (0.0-0.5) Basophils # (Auto) 0.0 K/uL (0.0-0.1) Nucleated RBC Absolute Count (auto) 0.01 K/uL Sodium Level 140 mmol/L (137-145) Potassium Level 4.6 mmol/L (3.5-5.0) Chloride Level 102 mmol/L (98-107) Carbon Dioxide Level 31 mmol/L (22-31) Blood Urea Nitrogen 17 mg/dl (7-18) Creatinine 0.90 mg/dl (0.52-1.04) Glomerular Filtration Rate Calc > 60.0 Random Glucose 101 mg/dl (75-110) Calcium Level 9.8 mg/dl (8.4-10.2) Total Bilirubin 0.3 mg/dl (0.2-1.3) Aspartate Amino Transf (AST/SGOT) 12 U/L (0-35) Alanine Aminotransferase (ALT/SGPT) 20 U/L (0-56) Alkaline Phosphatase 106 U/L (0-126) Troponin I < 0.012 ng/ml Total Protein 7.6 g/dl (6.3-8.2) Albumin 4.1 g/dl (3.5-5.0) Whole Blood Glucose 107 mg/DL (75-110) Urine Color Yellow Urine Clarity Clear Urine pH 7.0 pH (4.8-9.5) Urine Specific [place] 1.006 Urine Protein Negative mg/dL (NEGATIVE) Urine Glucose (UA) Negative mg/dL (NEGATIVE) Urine Ketones Negative mg/dL (NEGATIVE) Urine Blood Negative (NEGATIVE) Urine Nitrite Negative (NEGATIVE) Urine Bilirubin Negative (NEGATIVE) Urine Urobilinogen Negative mg/dL (0.2-1.9) Urine Leukocyte Esterase Negative (NEGATIVE) Urine RBC <1 /HPF (0-2/HPF) Urine WBC <1 /HPF (0-5/HPF) Urine Squamous Epithelial Cells Many /LPF (</=FEW) Urine Bacteria Few /HPF (NONE-FEW) Urine Mucus None /HPF (NONE-FEW) Urine Opiates Screen Negative Urine Barbiturates Screen Negative Ur Tricyclic Antidepressants Screen Negative Urine Phencyclidine Screen Negative Urine Amphetamines Screen Negative Urine Benzodiazepines Screen Negative Urine Cocaine Screen Negative Urine Cannabinoids Screen Negative Chemistry Test 09/12/18 00:00 09/12/18 17:40 09/12/18 18:04 White Blood Count 7.6 k/uL (4.5-11.0) Red Blood Count 5.80 M/uL (4.17-5.56) Hemoglobin 17.8 g/dL (12.0-16.0) Hematocrit 52.5 % (34.0-47.0) Mean Corpuscular Volume 90.5 fL (80.0-96.0) Mean Corpuscular Hemoglobin 30.7 pg (26.0-33.0) Mean Corpuscular Hemoglobin Concent 34.0 g/dL (32.0-36.0) Red Cell Distribution Width 14.7 % (11.5-14.5) Platelet Count 180 K/uL (150-450) Mean Platelet Volume 8.9 fL (7.2-11.1) Neutrophils (%) (Auto) 75.8 % (39.4-72.5) Lymphocytes (%) (Auto) 14.7 % (17.6-49.6) Monocytes (%) (Auto) 6.7 % (4.1-12.4) Eosinophils (%) (Auto) 2.3 % (0.4-6.7) Basophils (%) (Auto) 0.5 % (0.3-1.4) Nucleated RBC Relative Count (auto) 0.1 /100WBC Neutrophils # (Auto) 5.7 K/uL (2.0-7.4) Lymphocytes # (Auto) 1.1 K/uL (1.3-3.6) Monocytes # (Auto) 0.5 K/uL (0.3-1.0) Eosinophils # (Auto) 0.2 K/uL (0.0-0.5) Basophils # (Auto) 0.0 K/uL (0.0-0.1) Nucleated RBC Absolute Count (auto) 0.01 K/uL Glomerular Filtration Rate Calc > 60.0 Calcium Level 9.8 mg/dl (8.4-10.2) Total Bilirubin 0.3 mg/dl (0.2-1.3) Aspartate Amino Transf (AST/SGOT) 12 U/L (0-35) Alanine Aminotransferase (ALT/SGPT) 20 U/L (0-56) Alkaline Phosphatase 106 U/L (0-126) Troponin I < 0.012 ng/ml Total Protein 7.6 g/dl (6.3-8.2) Albumin 4.1 g/dl (3.5-5.0) Whole Blood Glucose 107 mg/DL (75-110) Urine Color Yellow Urine Clarity Clear Urine pH 7.0 pH (4.8-9.5) Urine Specific [place] 1.006 Urine Protein Negative mg/dL (NEGATIVE) Urine Glucose (UA) Negative mg/dL (NEGATIVE) Urine Ketones Negative mg/dL (NEGATIVE) Urine Blood Negative (NEGATIVE) Urine Nitrite Negative (NEGATIVE) Urine Bilirubin Negative (NEGATIVE) Urine Urobilinogen Negative mg/dL (0.2-1.9) Urine Leukocyte Esterase Negative (NEGATIVE) Urine RBC <1 /HPF (0-2/HPF) Urine WBC <1 /HPF (0-5/HPF) Urine Squamous Epithelial Cells Many /LPF (</=FEW) Urine Bacteria Few /HPF (NONE-FEW) Urine Mucus None /HPF (NONE-FEW) Urine Opiates Screen Negative Urine Barbiturates Screen Negative Ur Tricyclic Antidepressants Screen Negative Urine Phencyclidine Screen Negative Urine Amphetamines Screen Negative Urine Benzodiazepines Screen Negative Urine Cocaine Screen Negative Urine Cannabinoids Screen Negative Toxicology Test 09/12/18 18:04 Urine Opiates Screen Negative Urine Barbiturates Screen Negative Ur Tricyclic Antidepressants Screen Negative Urine Phencyclidine Screen Negative Urine Amphetamines Screen Negative Urine Benzodiazepines Screen Negative Urine Cocaine Screen Negative Urine Cannabinoids Screen Negative Urinalysis Test 09/12/18 18:04 Urine Color Yellow Urine Clarity Clear Urine pH 7.0 pH (4.8-9.5) Urine Specific [place] 1.006 Urine Protein Negative mg/dL (NEGATIVE) Urine Glucose (UA) Negative mg/dL (NEGATIVE) Urine Ketones Negative mg/dL (NEGATIVE) Urine Blood Negative (NEGATIVE) Urine Nitrite Negative (NEGATIVE) Urine Bilirubin Negative (NEGATIVE) Urine Urobilinogen Negative mg/dL (0.2-1.9) Urine Leukocyte Esterase Negative (NEGATIVE) Urine RBC <1 /HPF (0-2/HPF) Urine WBC <1 /HPF (0-5/HPF) Urine Squamous Epithelial Cells Many /LPF (</=FEW) Urine Bacteria Few /HPF (NONE-FEW) Urine Mucus None /HPF (NONE-FEW) EKG/Imaging EKG Interpretation 12 lead EKG: Rhythm: Sinus rhythm with first-degree AV block, ventricular rate of 67 bpm Gary: normal QRS: normal ST segments: normal Imaging INDICATION: Chest Pain. DATE: 09/12/2018 6:20 PM. TECHNIQUE: CHEST PA AND LAT COMPARISON: Chest radiographs September 01, 2017 FINDINGS: Heart size is normal. No effusion, consolidation, or pneumothorax. The interstitium is diffusely prominent. Inflation is normal. IMPRESSION: Diffusely prominent interstitium may reflect background airways disease. No focal pneumonia. Report Dictated By: Jalen Alba MD at 09/12/2018 6:20 PM Report E-Signed By: Jalen Alba MD at 09/12/2018 6:25 PM ED Course/Re-evaluation ED Course Patient was admitted exam room, history and physical were obtained. On exam lungs are clear, heart is regular, abdomen was soft nontender. In evaluating the extraocular movements there was no nystagmus noted. A CBC, CMP, troponin, EKG, chest x-ray, urinalysis were obtained. The labs were unremarkable, EKG showed a sinus rhythm with a first-degree AV block, chest x-ray showed no pneumonia. Urinalysis was unremarkable. As I was talking with patient about her lab results she states that she would like to know how long he was going to be that she would be the emergency room. I informed her with the onset of her chest pain being for 30s afternoon I would like to go ahead and repeat a troponin at 8:30. Patient states that she is not going to stay like to leave at this time. I am unsure of the cause of her chest pain at this time. I discussed with her that I do not know why she is having the chest pain nor the swirly sensation that she has her head. My encouragement was to wait until he got the remainder of the testing done. Patient refused stating that she will and leave now. I did tell the patient that not continue with evaluation could lead to worsening of her condition up to and including . Patient again stated that she did not care and that she would like to leave. Patient was given an AGAINST MEDICAL ADVICE form to sign which she signed and she left without further care. Decision to Disposition Date: Sep 12, 2018 Decision to Disposition Time: 18:25 Depart Departure Latest Vital Signs Vital Signs Date Time Temp Pulse Resp B/P (MAP) Pulse Ox O2 Delivery O2 Flow Rate FiO2 09/12/18 17:35 98.7 75 20 119/53 91 Room Air Core Temperature (Celsius): 37.50 Impression: Primary Impression: Chest pain Condition: Condition Unchanged Disposition: [facility] Referrals: SHERON PEARL APRN MEDICAL PRACTICE ASSISTANT-C (PCP) Problem Qualifiers Primary Impression: Chest pain Chest pain type: unspecified Qualified Codes: R07.9 - Chest pain, unspecified LIZETTE KC MEDICAL PRACTICE ASSISTANT Sep 12, 2018 17:43
[2018-09-12 17:53] LABS: PLATELET COUNT, AUTOMATED 180 K/uL (150-450)
--- NOTE | 2018-09-12 17:54 | EKG ---
FACILITY: PATIENT NAME: TUSHAR MILLER : [id number] MR: [id number] V: [id number] EXAM DATE: ORDERING PHYSICIAN: LIZETTE KC TECHNOLOGIST: DEANDRA Test Reason : CP Blood Pressure : / mmHG Vent. Rate : 067 BPM Atrial Rate : 067 BPM P-R Int : 210 ms QRS Dur : 112 ms QT Int : 416 ms P-R-T Axes : 067 020 054 degrees QTc Int : 439 ms Sinus rhythm with 1st degree AV block Otherwise normal ECG When compared with ECG of 07-AUG-2018 05:20, No significant change was found Confirmed by Mayito Stoner ([id number]) on 09/12/2018 10:30:41 PM Referred By: GEREMIAS Confirmed By:Mayito Hui
--- NOTE | 2018-09-12 18:29 | RADIOLOGY IMAGING REPORT ---
FACILITY: [facility] PATIENT NAME: Lamonte Erickson : 1960 MR: [id number] V: [id number] EXAM DATE: ORDERING PHYSICIAN: LIZETTE KC TECHNOLOGIST: Location: [facility] [place] Patient: Lamonte Erickson : 1960 Visit/Account:[id number] Date of Sevice: 09/12/2018 INDICATION: Chest Pain. DATE: 09/12/2018 6:20 PM. TECHNIQUE: CHEST PA AND LAT COMPARISON: Chest radiographs September 01, 2017 FINDINGS: Heart size is normal. No effusion, consolidation, or pneumothorax. The interstitium is di ffusely prominent. Inflation is normal. IMPRESSION: Diffusely prominent interstitium may reflect background airways disease. No focal pneumonia. Report Dictated By: Jalen Alba MD at 09/12/2018 6:20 PM Report E-Signed By: Jalen Alba MD at 09/12/2018 6:25 PM [id number]:[email or web address]
== END 2018-09-12 18:30 | disposition left against medical advice (07) ==
LOC: ER 17:39
DX: R07.9 Chest pain, unspecified (principal); F17.210 Nicotine dependence, cigarettes, uncomplicated; I44.0 Atrioventricular block, first degree
CPT/HCPCS: 36416; 71046; 80305; 81001; 82040; 82247; 82310; 82374; 82435; 82565; 82947; 82948; 84075; 84132; 84155; 84295; 84450; 84460; 84484; 84520; 85025; 93005; 99284

== ENCOUNTER → 2018-09-12 | Outpatient (CLI) | payer MEDICARE, MEDICAID ==
[~2018-09-12] MED LIST changes: +LURA60TA PO; +OMEP10CA40 PO
== END ==
LOC: AMB 17:04
PROVIDERS: ATTEND Nurse Practitioner
DX: R07.9 Chest pain, unspecified (principal); E11.649 Type 2 diabetes mellitus with hypoglycemia without coma; Z79.4 Long term (current) use of insulin
CPT/HCPCS: A0425; A0427

== ENCOUNTER → 2018-10-09 | Outpatient (CLI) | payer MEDICARE, MEDICAID ==
[~2018-10-09] MED LIST changes: +LURA60TA PO
[2018-10-09 10:51] LABS: PLATELET COUNT, AUTOMATED 178 K/uL (150-450)
[2018-10-09 11:04] LABS: LDL CHOLESTEROL 115 mg/dl
== END ==
LOC: LAB 09:45
PROVIDERS: ATTEND Nurse Practitioner Family
DX: E03.9 Hypothyroidism, unspecified (principal); E11.65 Type 2 diabetes mellitus with hyperglycemia; R19.7 Diarrhea, unspecified
CPT/HCPCS: 36415; 82040; 82247; 82310; 82374; 82435; 82465; 82565; 82784; 82947; 83036; 83516; 83718; 84075; 84132; 84155; 84295; 84443; 84450; 84460; 84478; 84520; 85025

== ENCOUNTER → 2018-10-15 | Outpatient (CLI) | payer MEDICARE, MEDICAID ==
[~2018-10-15] MED LIST changes: +MULT-1379 PO; +NIC10R INH
== END ==
LOC: LAB 13:42
PROVIDERS: ATTEND Nurse Practitioner Family
DX: Z02.9 Encounter for administrative examinations, unspecified (principal)

== ENCOUNTER 2018-10-18 14:23 | Emergency (ER) | payer MEDICARE, MEDICAID ==
[~2018-10-18 14:23] MED LIST changes: -MULT-1379 PO; -NIC10R INH
--- NOTE | 2018-10-18 14:27 | ER Report ---
History and Physical Time Seen By MD: 14:27 HPI/ROS 58-year-old female with a history of depression and suicidal thoughts presents to the emergency department with feeling depressed at the holidays, lonely, and suicidal thoughts with a plan to overdose on her psych meds. She denies drug or alcohol use. She is currently living alone in an apartment. Remainder of the 14 system rev: Yes Allergies: Coded Allergies: ketorolac (Verified Allergy, Intermediate, MADE SYMTOMS WORSE, 09/12/18) NSAIDS (Non-Steroidal Anti-Inflamma (Verified Allergy, Mild, Vomiting, 09/12/18) butorphanol (Verified Allergy, Mild, facial burning, 09/12/18) morphine (Verified Allergy, Unknown, 09/12/18) phenazopyridine HCl (Verified Allergy, Unknown, 09/12/18) sumatriptan succinate (Verified Allergy, Unknown, 09/12/18) Home Meds Active Scripts Tizanidine Hcl (TIZANIDINE HCL) 4 Mg Tablet, 1 TAB PO TID PRN for MUSCLE SPASMS, #30 TAB 0 Refills Prov:SHREON PEARL APRNP-C 10/15/18 Levothyroxine Sodium (LEVOTHYROXINE SODIUM) 25 Mcg Tablet, 1 TAB PO QDAY, #90 TAB 0 Refills Prov:SHERON PEARL APRNP-C 10/15/18 Quetiapine Fumarate (SEROQUEL) 200 Mg Tablet, 1 TAB PO QHS, #5 TAB 0 Refills Prov:SHERON PEARL APRNP-C 08/14/18 Spironolactone (SPIRONOLACTONE) 25 Mg Tablet, 1 TAB PO DAILY, #90 TAB 0 Refills Prov:SHERON PEARL APRNP-C 07/28/18 Gabapentin (GABAPENTIN) 600 Mg Tablet, 1 TAB PO BID, #180 TAB 1 Refill Prov:SHERON PEARL APRN [facility] 07/24/18 Metformin Hcl (METFORMIN HCL) 500 Mg Tablet, 1 TAB PO BID, #180 TAB 0 Refills Prov:SHERON PEARL APRN [facility] 07/20/18 NYSTATIN 098733 UNT/ML Topical Cream (NYSTATIN 364540 UNT/ML Topical Cream) 15 Gm Cream..g., 1 AN TP BID, #60 GM 2 Refills Apply to rash under breasts until resolved Prov:SHERON PEARL APRN [facility]- 06/16/18 Oxybutynin Chloride (OXYBUTYNIN CHLORIDE) 5 Mg Tablet, 1 TAB PO BID, #180 TAB 1 Refill Prov:SHERON PEARL APRN [facility] 05/26/18 Diclofenac Sodium 1% Gel (VOLTAREN 1% GEL) 100 Gm Gel..gram., 4 GM TOP QID PRN for PAIN, #100 GM 2 Refills as needed for right knee pain Prov:SHERON PEARL APRN [facility] 03/06/18 Insulin Detemir 100 UN/ML PEN (Levemir Flextouch) 100 Unit/1 Ml Insuln.pen, 40 UNITS SUBQ DAILY, #1 BOX 10 Refills Prov:SHERON PEARL APRN [facility]- 11/17/17 Duloxetine Hcl (CYMBALTA) 60 Mg Capsule.dr, 1 CAP PO QDAY, #90 CAP 1 Refill Prov:SHERON PEARL APRN [facility] 10/10/17 Blood Sugar Diagnostic (BLOOD GLUCOSE TEST STRIP) 1 Each Strip, 1 STRIP MC DAILY, #30 BOT 4 Refills Prov:SHERON PEARL APRN [facility]- 06/02/17 Reported Medications Lurasidone Hcl (LATUDA) 60 Mg Tablet, 1 TAB PO DAILY 09/12/18 Omeprazole (OMEPRAZOLE) 40 Mg Capsule.dr, 40 MG PO DAILY, CAP 08/06/18 Lamotrigine (LAMOTRIGINE) 100 Mg Tablet, 1 TAB PO DAILY 10/10/16 Topiramate (TOPIRAMATE) 100 Mg Tablet, 1 TAB PO DAILY 10/10/16 Reviewed Nurses Notes: Yes Old Medical Records Reviewed: Yes Hx Smoking: Yes (7-10 CIGS QDAY) Smoking Status: Current: Every Day Smoker Exposure to Second Hand Smoke?: Yes Hx Substance Use Disorder: Yes Hx Alcohol Use: No Constitutional Vital Sign - Last 24 Hours 10/18/18 14:30 Temp 97.9 Pulse 97 Resp 24 B/P (MAP) 152/80 Pulse Ox 90 O2 Delivery Room Air Physical Exam General Appearance: The patient is alert, has no immediate need for airway protection and no current signs of toxicity. Eyes: Pupils equal and round no injection. Respiratory: Chest is non tender, lungs are clear to auscultation. Cardiac: regular rate and rhythm Gastrointestinal: Abdomen is soft and non tender, no masses, bowel sounds normal. Extremities have full range of motion and are non tender. Skin: No rashes or lesions. DIFFERENTIAL DIAGNOSIS: After history and physical exam differential diagnosis was considered for depression including functional and major depression, situational depression, medication side effect, drugs and alcohol abuse. Medical Decision Making Data Points Result Diagram: 10/18/18 1504 10/18/18 1504 Laboratory Hematology Test 10/18/18 15:04 10/18/18 15:42 Red Blood Count 5.60 M/uL (4.17-5.56) Mean Corpuscular Volume 91.9 fL (80.0-96.0) Mean Corpuscular Hemoglobin 30.5 pg (26.0-33.0) Mean Corpuscular Hemoglobin Concent 33.2 g/dL (32.0-36.0) Red Cell Distribution Width 14.7 % (11.5-14.5) Mean Platelet Volume 8.8 fL (7.2-11.1) Neutrophils (%) (Auto) 78.6 % (39.4-72.5) Lymphocytes (%) (Auto) 13.2 % (17.6-49.6) Monocytes (%) (Auto) 5.4 % (4.1-12.4) Eosinophils (%) (Auto) 2.2 % (0.4-6.7) Basophils (%) (Auto) 0.6 % (0.3-1.4) Nucleated RBC Relative Count (auto) 0.1 /100WBC Neutrophils # (Auto) 6.6 K/uL (2.0-7.4) Lymphocytes # (Auto) 1.1 K/uL (1.3-3.6) Monocytes # (Auto) 0.5 K/uL (0.3-1.0) Eosinophils # (Auto) 0.2 K/uL (0.0-0.5) Basophils # (Auto) 0.1 K/uL (0.0-0.1) Nucleated RBC Absolute Count (auto) 0.01 K/uL Sodium Level 141 mmol/L (137-145) Potassium Level 5.1 mmol/L (3.5-5.0) Chloride Level 105 mmol/L (98-107) Carbon Dioxide Level 30 mmol/L (22-31) Blood Urea Nitrogen 10 mg/dl (7-18) Creatinine 1.20 mg/dl (0.52-1.04) Glomerular Filtration Rate Calc 46.1 Random Glucose 135 mg/dl (75-110) Calcium Level 9.5 mg/dl (8.4-10.2) Magnesium Level 2.5 mg/dl (1.7-2.2) Total Bilirubin 0.2 mg/dl (0.2-1.3) Aspartate Amino Transf (AST/SGOT) 13 U/L (0-35) Alanine Aminotransferase (ALT/SGPT) 23 U/L (0-56) Alkaline Phosphatase 128 U/L (0-126) Total Protein 7.1 g/dl (6.3-8.2) Albumin 3.9 g/dl (3.5-5.0) Human Chorionic Gonadotropin, Qual Negative (NEGATIVE) Salicylates Level < 10 mg/L Salicylate Last Dose Date 7 days Acetaminophen Level < 10 ug/ml Serum Alcohol < 10 mg/dl Urine Color Straw Urine Clarity Clear Urine pH 7.0 pH (4.8-9.5) Urine Specific [place] 1.004 Urine Protein Negative mg/dL (NEGATIVE) Urine Glucose (UA) Negative mg/dL (NEGATIVE) Urine Ketones Negative mg/dL (NEGATIVE) Urine Blood Negative (NEGATIVE) Urine Nitrite Negative (NEGATIVE) Urine Bilirubin Negative (NEGATIVE) Urine Urobilinogen Negative mg/dL (0.2-1.9) Urine Leukocyte Esterase Negative (NEGATIVE) Urine RBC <1 /HPF (0-2/HPF) Urine WBC <1 /HPF (0-5/HPF) Urine Squamous Epithelial Cells Few /LPF (</=FEW) Urine Bacteria Negative /HPF (NONE-FEW) Urine Mucus None /HPF (NONE-FEW) Urine Opiates Screen Negative Urine Barbiturates Screen Negative Ur Tricyclic Antidepressants Screen Negative Urine Phencyclidine Screen Negative Urine Amphetamines Screen Negative Urine Benzodiazepines Screen Negative Urine Cocaine Screen Negative Urine Cannabinoids Screen Negative Chemistry Test 10/18/18 15:04 10/18/18 15:42 White Blood Count 8.4 k/uL (4.5-11.0) Red Blood Count 5.60 M/uL (4.17-5.56) Hemoglobin 17.1 g/dL (12.0-16.0) Hematocrit 51.4 % (34.0-47.0) Mean Corpuscular Volume 91.9 fL (80.0-96.0) Mean Corpuscular Hemoglobin 30.5 pg (26.0-33.0) Mean Corpuscular Hemoglobin Concent 33.2 g/dL (32.0-36.0) Red Cell Distribution Width 14.7 % (11.5-14.5) Platelet Count 189 K/uL (150-450) Mean Platelet Volume 8.8 fL (7.2-11.1) Neutrophils (%) (Auto) 78.6 % (39.4-72.5) Lymphocytes (%) (Auto) 13.2 % (17.6-49.6) Monocytes (%) (Auto) 5.4 % (4.1-12.4) Eosinophils (%) (Auto) 2.2 % (0.4-6.7) Basophils (%) (Auto) 0.6 % (0.3-1.4) Nucleated RBC Relative Count (auto) 0.1 /100WBC Neutrophils # (Auto) 6.6 K/uL (2.0-7.4) Lymphocytes # (Auto) 1.1 K/uL (1.3-3.6) Monocytes # (Auto) 0.5 K/uL (0.3-1.0) Eosinophils # (Auto) 0.2 K/uL (0.0-0.5) Basophils # (Auto) 0.1 K/uL (0.0-0.1) Nucleated RBC Absolute Count (auto) 0.01 K/uL Glomerular Filtration Rate Calc 46.1 Calcium Level 9.5 mg/dl (8.4-10.2) Magnesium Level 2.5 mg/dl (1.7-2.2) Total Bilirubin 0.2 mg/dl (0.2-1.3) Aspartate Amino Transf (AST/SGOT) 13 U/L (0-35) Alanine Aminotransferase (ALT/SGPT) 23 U/L (0-56) Alkaline Phosphatase 128 U/L (0-126) Total Protein 7.1 g/dl (6.3-8.2) Albumin 3.9 g/dl (3.5-5.0) Human Chorionic Gonadotropin, Qual Negative (NEGATIVE) Salicylates Level < 10 mg/L Salicylate Last Dose Date 7 days Acetaminophen Level < 10 ug/ml Serum Alcohol < 10 mg/dl Urine Color Straw Urine Clarity Clear Urine pH 7.0 pH (4.8-9.5) Urine Specific [place] 1.004 Urine Protein Negative mg/dL (NEGATIVE) Urine Glucose (UA) Negative mg/dL (NEGATIVE) Urine Ketones Negative mg/dL (NEGATIVE) Urine Blood Negative (NEGATIVE) Urine Nitrite Negative (NEGATIVE) Urine Bilirubin Negative (NEGATIVE) Urine Urobilinogen Negative mg/dL (0.2-1.9) Urine Leukocyte Esterase Negative (NEGATIVE) Urine RBC <1 /HPF (0-2/HPF) Urine WBC <1 /HPF (0-5/HPF) Urine Squamous Epithelial Cells Few /LPF (</=FEW) Urine Bacteria Negative /HPF (NONE-FEW) Urine Mucus None /HPF (NONE-FEW) Urine Opiates Screen Negative Urine Barbiturates Screen Negative Ur Tricyclic Antidepressants Screen Negative Urine Phencyclidine Screen Negative Urine Amphetamines Screen Negative Urine Benzodiazepines Screen Negative Urine Cocaine Screen Negative Urine Cannabinoids Screen Negative Toxicology Test 10/18/18 15:04 10/18/18 15:42 Salicylates Level < 10 mg/L Salicylate Last Dose Date 7 days Acetaminophen Level < 10 ug/ml Serum Alcohol < 10 mg/dl Urine Opiates Screen Negative Urine Barbiturates Screen Negative Ur Tricyclic Antidepressants Screen Negative Urine Phencyclidine Screen Negative Urine Amphetamines Screen Negative Urine Benzodiazepines Screen Negative Urine Cocaine Screen Negative Urine Cannabinoids Screen Negative Urinalysis Test 10/18/18 15:42 Urine Color Straw Urine Clarity Clear Urine pH 7.0 pH (4.8-9.5) Urine Specific [place] 1.004 Urine Protein Negative mg/dL (NEGATIVE) Urine Glucose (UA) Negative mg/dL (NEGATIVE) Urine Ketones Negative mg/dL (NEGATIVE) Urine Blood Negative (NEGATIVE) Urine Nitrite Negative (NEGATIVE) Urine Bilirubin Negative (NEGATIVE) Urine Urobilinogen Negative mg/dL (0.2-1.9) Urine Leukocyte Esterase Negative (NEGATIVE) Urine RBC <1 /HPF (0-2/HPF) Urine WBC <1 /HPF (0-5/HPF) Urine Squamous Epithelial Cells Few /LPF (</=FEW) Urine Bacteria Negative /HPF (NONE-FEW) Urine Mucus None /HPF (NONE-FEW) ED Course/Re-evaluation ED Course Suicidal thoughts with a planned overdose on her psych meds secondary to being d epressed at the holidays. Has a history of depression. Has a history of admission, but not for years. Unamenable to voluntary admission for suicidal ideations and depression. Decision to Disposition Date: Oct 18, 2018 Decision to Disposition Time: 16:21 Depart Departure Latest Vital Signs Vital Signs Date Time Temp Pulse Resp B/P (MAP) Pulse Ox O2 Delivery O2 Flow Rate FiO2 10/18/18 14:30 97.9 97 24 152/80 90 Room Air Core Temperature (Celsius): 37.50 Impression: Primary Impression: Suicidal ideation Condition: Improved Disposition: XFER TO [facility] Referrals: SHERON PEARL APRN [facility]-C (PCP) KALEB COHEN MD Oct 18, 2018 14:27
[2018-10-18 15:20] LABS: PLATELET COUNT, AUTOMATED 189 K/uL (150-450)
[2018-10-18 16:42] VITALS: BP 144/88
== END 2018-10-18 16:58 ==
LOC: ER 14:42
DX: R45.851 Suicidal ideations (principal); F32.9 Major depressive disorder, single episode, unspecified
CPT/HCPCS: 80305; 81001; 83735; 84443; 84703; 85025; 99284; G0480; 80320; 80329; 82040; 82247; 82310; 82374; 82435; 82565; 82947; 84075; 84132; 84155; 84295; 84450; 84460; 84520

== ENCOUNTER 2018-10-18 16:35 | Inpatient (IN) | payer MEDICARE, MEDICAID ==
[~2018-10-18] VITALS: Ht 165.1 cm; Wt 127.0 kg
[2018-10-18 16:50] VITALS: BP 104/88
[2018-10-18] MEDS ORDERED: MAG HYD/AL HYD/SIMETH 30ML UDC PO PRN (17:10)
[2018-10-18] MEDS: NICOTINE CARTRIDGE 1 EA PO PRN (17:45)
[2018-10-18] MEDS: ACETAMINOPHEN 325 MG TAB PO PRN ×2 (17:45→23:10)
[2018-10-18] MEDS: NICOTINE INH SYSTEM 10 MG/INH INH PRN (17:45)
[2018-10-18] MEDS: GABAPENTIN 300 MG CAP PO SCH (20:34)
[2018-10-18] MEDS: OXYBUTYNIN CHL 5 MG TAB PO SCH (20:34)
[2018-10-18] MEDS: QUEtiapine FUM 100 MG TAB PO SCH (20:34)
[2018-10-18] MEDS: [UNRECOGNIZED DRUG - OTHER] TP SCH (20:36)
[2018-10-19] MEDS: LEVOTHYROXINE SOD 0.025 MG TAB PO SCH (05:53)
[2018-10-19] MEDS: ACETAMINOPHEN 325 MG TAB PO PRN ×3 (05:59→21:24)
[2018-10-19 06:06] VITALS: BP 117/64
--- NOTE | 2018-10-19 06:11 | NUR ---
Entered pt's room at approx. 0555 hrs. to give Synthroid, check vitals and advise pt that lab was coming shortly for a blood draw. As we were finishing up, the pt yelled "Get out!" at us and stated that she was hurting (I had just given her Tylenol per her request). Staff exited the room. The pt was noted to get up without assistance shortly afterward.
[2018-10-19 06:39] LABS: PLATELET COUNT, AUTOMATED 148 K/uL (150-450)
[2018-10-19 08:03] VITALS: BP 118/80
[2018-10-19] MEDS: [UNRECOGNIZED DRUG - OTHER] TP SCH ×2 (08:25→20:41)
[2018-10-19] MEDS: INSULIN DETEMIR 100 U/ML 3 ML PEN SUBQ SCH (08:26)
[2018-10-19] MEDS: OXYBUTYNIN CHL 5 MG TAB PO SCH ×2 (08:27→20:42)
[2018-10-19] MEDS: DULoxetine HCL 30 MG CAPCR PO SCH (08:27)
[2018-10-19] MEDS: lamoTRIgine 100 MG TAB PO SCH (08:28)
[2018-10-19] MEDS: MULTIVITAMINS PO SCH (08:28)
[2018-10-19] MEDS: SPIRONOLACTONE 25 MG TAB PO SCH (08:28)
[2018-10-19] MEDS: GABAPENTIN 300 MG CAP PO SCH ×2 (08:28→20:44)
[2018-10-19] MEDS: PANTOPRAZOLE SOD 40 MG TABEC PO SCH (08:28)
[2018-10-19] MEDS: TOPIRAMATE 100 MG TAB PO SCH (08:28)
[2018-10-19] MEDS: LURASIDONE 40 MG TAB PO SCH (08:28)
[2018-10-19] MEDS: NICOTINE INH SYSTEM 10 MG/INH INH PRN (10:29)
[2018-10-19] MEDS: NICOTINE CARTRIDGE 1 EA PO PRN (10:29)
[2018-10-19] MEDS: QUEtiapine FUM 100 MG TAB PO SCH (20:42)
[2018-10-19 20:50] VITALS: BP 125/63
[2018-10-20] MEDS: ACETAMINOPHEN 325 MG TAB PO PRN ×2 (06:00→10:55)
[2018-10-20] MEDS: LEVOTHYROXINE SOD 0.025 MG TAB PO SCH (06:00)
[2018-10-20 06:28] VITALS: BP 125/87
[2018-10-20] MEDS: OXYBUTYNIN CHL 5 MG TAB PO SCH (08:25)
[2018-10-20] MEDS: TOPIRAMATE 100 MG TAB PO SCH (08:25)
[2018-10-20] MEDS: PANTOPRAZOLE SOD 40 MG TABEC PO SCH (08:25)
[2018-10-20] MEDS: DULoxetine HCL 30 MG CAPCR PO SCH (08:25)
[2018-10-20] MEDS: SPIRONOLACTONE 25 MG TAB PO SCH (08:25)
[2018-10-20] MEDS: INSULIN DETEMIR 100 U/ML 3 ML PEN SUBQ SCH (08:26)
[2018-10-20] MEDS: GABAPENTIN 300 MG CAP PO SCH (08:26)
[2018-10-20] MEDS: lamoTRIgine 100 MG TAB PO SCH (08:26)
[2018-10-20] MEDS: LURASIDONE 40 MG TAB PO SCH (08:26)
[2018-10-20] MEDS: MULTIVITAMINS PO SCH (08:26)
[2018-10-20] MEDS: [UNRECOGNIZED DRUG - OTHER] TP SCH (08:27)
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
[2018-10-20] MEDS ORDERED: NIC10R INH (12:20)
[2018-10-20] MEDS ORDERED: MULT-1379 PO (12:20)
--- NOTE | 2018-10-21 08:52 | SCHAAF DISCHARGE ---
DATE OF ADMISSION October 18, 2018 DATE OF DISCHARGE October 20, 2018 ATTENDING PHYSICIAN Speedy Denney MD Patient was seen at approximately 10/20/2018 at 0900 hours for a note concerning this dictation. FINAL DIAGNOSES 1. Major depression. 2. Recurrent moderate adjustment disorder with depressed mood concerning isolation over the holidays. 3. Personality disorder, unspecified. 4. Social stressors. 5. Isolation. REASON FOR ADMISSION Please refer to H and P for full details. This is a 58-year-old female who is well known to the [facility] in general. Patient admitted voluntarily for brief suicidal thoughts due to social isolation at home. It was later discovered patient was also very distraught over losing her cable TV service briefly. Patient was cooperative on the unit overall certainly demonstrating personality disorder characteristics. Patient demanding at times of staff and then apologetic. Patient giving no indication of any intention to care to the best of her ability for her diabetic condition, and patient also refusing to accept any kind of counseling on regarding smoking cessation. Patient's mood quickly improved on the unit. Patient sleeping well. Good appetite. Patient stating, " I am ready to go home. I need to smoke a cigarette." Patient denying any suicidal ideation and stating her mood had improved. PHYSICAL EXAMINATION Please see emergency room note notable for 58-year-old obese female. Vital signs at the time of admission: Temperature 97.9, pulse 97, respiratory rate 24, blood pressure 152/80 and pulse oximetry 90% on room air. Vital signs at the time of discharge from [facility]: Temperature 97.3, pulse 72, respiratory rate 15, blood pressure 125/87 and pulse oximetry 89% on room air. LABORATORY DATA CBC notable for RBCs elevated at 5.60, hemoglobin elevated at 17.1, hematocrit elevated at 51.4. Chemistry panel notable for creatinine slightly elevated at 1.20, potassium 5.1 and elevated, magnesium 2.5 and elevated, TSH 1.26 in normal range, random glucose 135 and elevated. screen negative. Urinalysis unremarkable. Toxicology screen negative for substances of abuse and a nondetectable serum alcohol level. Hemoglobin A1c noted to be elevated at 7.5 MENTAL STATUS EXAMINATION GENERAL APPEARANCE, BEHAVIOR AND ATTITUDE: At time of discharge, this is an adequately groomed 58-year-old female. No gross psychomotor agitation or retardation. No periods of tearfulness, and interacting overall well at time of discharge. Making fair eye contact. SPEECH: Considered baseline for this patient. MOOD: Described as "good." AFFECT: Full at times and mood-congruent. THOUGHT PROCESSES: Appear goal-directed. Patient wanting to discharge to home. No loose associations or flight of ideas. THOUGHT CONTENT: Free of auditory or visual hallucinations, ideas of reference, thought broadcastings, delusions, obsessions, compulsions, and patient now adamantly denying suicidal or homicidal ideation. SENSORIUM: Clear. COGNITION: Alert and oriented to person, place, time and situation. MEMORY: Immediate, recent, and remote, was estimated intact. INTELLIGENCE: Average to below based on interview and previous knowledge of this patient. INSIGHT AND JUDGMENT: Maladaptive stress coping mechanisms and personality traits continue to exist long-term in this 58-year-old female, but in the absence of substance abuse, appropriate for ongoing close outpatient management which patient seems to take a part in. RESULTS OF TESTING Imaging: None. Laboratory data: See above. CONSULTATIONS None. TREATMENT Patient received medications, participated in individual and group therapy. HOSPITAL COURSE Patient exhibiting signs of long-standing chronic personality disorder throughout her stay. Patient seemingly intentionally not caring for her diabetes upon arrival on the unit. Patient giving no interest of smoking cessation information. Patient asking for hospital to pay for her ride home as she does not have any money, simultaneously stating she intends to go on smoking. Patient's A1c was noted to be much improved since the previous admission a few years back. Patient's mood quickly improved after admission to the hospital. CONDITION OF PATIENT ON DISCHARGE Stable. Considered a minimal risk to herself or others from a behavioral standpoint. DISPOSITION The patient was discharged to home. She would follow up with outpatient providers as currently scheduled. Patient was strongly encouraged to maintain a diabetic diet at home, take medications as prescribed, and stop nicotine consumption. Crisis line was given should symptoms return. MEDICATIONS AT TIME OF DISCHARGE Included: 1. Aldactone 25 mg daily. 2. Cymbalta 60 mg daily. 3. Ditropan 5 mg twice a day. 4. Latuda 60 mg every morning. 5. Levemir FlexTouch 40 units subcutaneously daily. 6. Lamictal 100 mg daily. 7. Mycostatin to apply to affected areas twice daily. 8. Neurontin 600 mg twice a day. 9. Patient could continue omeprazole. 10. Seroquel 200 mg at bedtime. 11. Synthroid 25 mcg daily. 12. Multivitamin with minerals daily. 13. Topamax 100 mg daily. 14. Patient encouraged to continue nicotine replacement [id number] and stop cigarette consumption. 15. Patient could take Zanaflex 4 mg p.r.n. as needed as prescribed at home as well. Crisis line was given should symptoms return. The risks, benefits, and alternatives of the above discharge plan were discussed. Informed consent was given to proceed with the above discharge plan by this patient. GLENYS
== END 2018-10-20 16:04 | disposition home or self-care (01) | DRG 881 ==
LOC: BHS 16:35
PROVIDERS: ADMIT Nurse Practitioner Psychiatric/Mental Health; ATTEND Nurse Practitioner Psychiatric/Mental Health
DX: F43.21 Adjustment disorder with depressed mood (principal); R45.851 Suicidal ideations; Z68.42 Body mass index [BMI] 45.0-49.9, adult; F60.9 Personality disorder, unspecified; E11.65 Type 2 diabetes mellitus with hyperglycemia; Z60.4 Social exclusion and rejection; F17.210 Nicotine dependence, cigarettes, uncomplicated; F32.9 Major depressive disorder, single episode, unspecified; G89.29 Other chronic pain; K21.9 Gastro-esophageal reflux disease without esophagitis; E66.01 Morbid (severe) obesity due to excess calories; Z62.810 Personal history of physical and sexual abuse in childhood; Z79.4 Long term (current) use of insulin; Z91.19 Patient's noncompliance with other medical treatment and regimen
CPT/HCPCS: 36415; 82040; 82247; 82310; 82374; 82435; 82565; 82947; 83036; 84075; 84132; 84155; 84295; 84450; 84460; 84520; 85025; J1815

== ENCOUNTER 2018-10-25 14:29 | Emergency (ER) | payer MEDICARE, MEDICAID ==
[~2018-10-25 14:29] MED LIST changes: +GABA-503 PO; -GABA-533 PO
[2018-10-25 14:32] VITALS: BP 121/68
[2018-10-25] MEDS ORDERED: ACETAMINOPHEN 325 MG TAB PO ONE ×2 (15:10→17:00)
[2018-10-25] MEDS ORDERED: IBUPROFEN 600 MG TAB PO ONE ×2 (15:10→17:02)
--- NOTE | 2018-10-25 16:39 | RADIOLOGY IMAGING REPORT ---
FACILITY: [facility] - [place] PATIENT NAME: Lamonte Erickson : 1960 MR: [id number] V: [id number] EXAM DATE: ORDERING PHYSICIAN: CHAN COHEN TECHNOLOGIST: Location: [facility] - [place] Patient: Lamonte Erickson : 1960 Visit/Account:[id number] Date of Sevice: 10/25/2018 CT Head without contrast and CT Cervical spine: Indication: Fall. Loss of consciousness. Neck pain. Comparison: CT abdomen 04/06/2018. Technique: CT head: Axial CT images were obtained through the brain from the skull base to the verte x without administration of IV contrast. Reformatted coronal and sagittal images were also obtained. Technique: CT cervical spine: Axial CT imaging of the cervical spine was performed. 2-D sagittal and coronal CT reformats were also obtained. One of the following dose optimization techniques was utilized in the performance of this exam: Autom ated exposure control; adjustment of the mA and/or kV according to the patient's size; or use of an i terative reconstruction technique. Specific details can be referenced in the facility's radiology C T exam operational policy. FINDINGS: CT head: No intracranial bleed, midline shift, mass effect, extra-axial fluid collection or hydrocephalus. No abnormal density. Nuno/white matter differentiation appears normal. Bony structures show no fractu res or lesions. Previous right frontotemporal craniotomy changes without sequelae. Rightward deviat ion nasal septum. The sinuses and mastoids visualized are clear. CT cervical spine: The vertebral bodies are aligned. No fracture or facet dislocation. No bony lesions. No significan t degenerative changes. Endplates are maintained. No obvious disc herniation. Prevertebral soft ti ssues and surrounding soft tissues are unremarkable. IMPRESSION: 1. No acute intracranial abnormality. No skull fracture. 2. No acute osseous or acute alignment abnormality of the cervical spine. Report Dictated By: Christopher Giron at 10/25/2018 4:24 PM Report E-Signed By: Christopher Giron at 10/25/2018 4:34 PM WSN:[id number]
--- NOTE | 2018-10-25 16:39 | RADIOLOGY IMAGING REPORT ---
FACILITY: [facility] - [place] PATIENT NAME: Lamonte Erickson : 1960 MR: [id number] V: [id number] EXAM DATE: ORDERING PHYSICIAN: HCAN COHEN TECHNOLOGIST: Location: [facility] - [place] Patient: Lamonte Erickson : 1960 Visit/Account:[id number] Date of Sevice: 10/25/2018 CT Head without contrast and CT Cervical spine: Indication: Fall. Loss of consciousness. Neck pain. Comparison: CT abdomen 04/06/2018. Technique: CT head: Axial CT images were obtained through the brain from the skull base to the verte x without administration of IV contrast. Reformatted coronal and sagittal images were also obtained. Technique: CT cervical spine: Axial CT imaging of the cervical spine was performed. 2-D sagittal and coronal CT reformats were also obtained. One of the following dose optimization techniques was utilized in the performance of this exam: Autom ated exposure control; adjustment of the mA and/or kV according to the patient's size; or use of an i terative reconstruction technique. Specific details can be referenced in the facility's radiology C T exam operational policy. FINDINGS: CT head: No intracranial bleed, midline shift, mass effect, extra-axial fluid collection or hydrocephalus. No abnormal density. Nuno/white matter differentiation appears normal. Bony structures show no fractu res or lesions. Previous right frontotemporal craniotomy changes without sequelae. Rightward deviat ion nasal septum. The sinuses and mastoids visualized are clear. CT cervical spine: The vertebral bodies are aligned. No fracture or facet dislocation. No bony lesions. No significan t degenerative changes. Endplates are maintained. No obvious disc herniation. Prevertebral soft ti ssues and surrounding soft tissues are unremarkable. IMPRESSION: 1. No acute intracranial abnormality. No skull fracture. 2. No acute osseous or acute alignment abnormality of the cervical spine. Report Dictated By: Christopher Giron at 10/25/2018 4:24 PM Report E-Signed By: Christopher Giron at 10/25/2018 4:34 PM WSN:[id number]
--- NOTE | 2018-10-25 16:44 | ER Report ---
History and Physical Time Seen By MD: 14:45 Hx. of Stated Complaint: FALL FRIDAY - C/O HEAD, NECK PAIN HPI/ROS CHIEF COMPLAINT: Fall, head injury HISTORY OF PRESENT ILLNESS: 58-year-old female states that had an injury Friday and is having increased pain since that time. She reports that she tripped due to mechanical fall, initially falling forward and striking the left side of her head on her dresser, then rolling to left side and falling backwards and hitting the back of her head and back on the ground. Patient was initially able to get herself up and ambulate, however she has noticed increased pain throughout the back of her head, shoulders, back that is now "unbearable'. She has not attempted any medication for her pain, or ice. She does not have fever, dyspnea, vomiting, syncope, change in urination, bowel movements. Pain is severe, radiates bilaterally throughout back to head. REVIEW OF SYSTEMS: Constitutional: No fever, no chills. Eyes: no diplopia ENT: no facial injury Cardiovascular: No chest pain, no palpitations. Respiratory: No cough, no shortness of breath. Gastrointestinal: No abdominal pain, no vomiting. Genitourinary: no dysuria Musculoskeletal: above Skin: no bruising, laceration Neurological: above Remainder of the 14 system rev: Yes Allergies: Coded Allergies: ketorolac (Verified Allergy, Intermediate, MADE SYMTOMS WORSE, 09/12/18) NSAIDS (Non-Steroidal Anti-Inflamma (Verified Allergy, Mild, Vomiting, 09/12/18) butorphanol (Verified Allergy, Mild, facial burning, 09/12/18) morphine (Verified Allergy, Unknown, 09/12/18) phenazopyridine HCl (Verified Allergy, Unknown, 09/12/18) sumatriptan succinate (Verified Allergy, Unknown, 09/12/18) Home Meds Active Scripts Tizanidine Hcl (TIZANIDINE HCL) 4 Mg Tablet, 1 TAB PO TID PRN for MUSCLE SPASMS, #30 TAB 0 Refills Prov:SHERON PEARL APRN-C 10/15/18 Levothyroxine Sodium (LEVOTHYROXINE SODIUM) 25 Mcg Tablet, 1 TAB PO QDAY, #90 TAB 0 Refills Prov:SHERON PEARL APRNP-C 10/15/18 Quetiapine Fumarate (SEROQUEL) 200 Mg Tablet, 1 TAB PO QHS, #5 TAB 0 Refills Prov:SHERON PEARL APRNP-C 08/14/18 Spironolactone (SPIRONOLACTONE) 25 Mg Tablet, 1 TAB PO DAILY, #90 TAB 0 Refills Prov:SHERON PEARL APRNP-C 07/28/18 Gabapentin (GABAPENTIN) 600 Mg Tablet, 1 TAB PO BID, #180 TAB 1 Refill Prov:SHERON PEARL APRN [facility] 07/24/18 NYSTATIN [id number] UNT/ML Topical Cream (NYSTATIN 296028 UNT/ML Topical Cream) 15 Gm Cream..g., 1 AN TP BID, #60 GM 2 Refills Apply to rash under breasts until resolved Prov:SHERON PEARL APRN-C 06/16/18 Oxybutynin Chloride (OXYBUTYNIN CHLORIDE) 5 Mg Tablet, 1 TAB PO BID, #180 TAB 1 Refill Prov:SHERON PEARL APRN-C 05/26/18 Diclofenac Sodium 1% Gel (VOLTAREN 1% GEL) 100 Gm Gel..gram., 4 GM TOP QID PRN for PAIN, #100 GM 2 Refills as needed for right knee pain Prov:SHERON PEARL APRN-C 03/06/18 Insulin Detemir 100 UN/ML PEN (Levemir Flextouch) 100 Unit/1 Ml Insuln.pen, 40 UNITS SUBQ DAILY, #1 BOX 10 Refills Prov:SHERON PEARL APRNC 11/17/17 Duloxetine Hcl (CYMBALTA) 60 Mg Capsule.dr, 1 CAP PO QDAY, #90 CAP 1 Refill Prov:SHERON PEARL APRNC 10/10/17 Blood Sugar Diagnostic (BLOOD GLUCOSE TEST STRIP) 1 Each Strip, 1 STRIP MC DAILY, #30 BOT 4 Refills Prov:SHERON PEARL APRN-C 06/02/17 Reported Medications Nicotine (NICOTROL) 10 Mg/Inh Ctr, 10 MG INH Q2H PRN for NICOTINE REPLACEMENT 10/20/18 Multivits,Th W-Fe,Other Min (THERA-M) 1 Each Tablet, 1 EACH PO QDAY 10/20/18 Lurasidone Hcl (LATUDA) 60 Mg Tablet, 1 TAB PO DAILY 09/12/18 Omeprazole (OMEPRAZOLE) 40 Mg Capsule.dr, 40 MG PO DAILY, CAP 08/06/18 Lamotrigine (LAMOTRIGINE) 100 Mg Tablet, 1 TAB PO DAILY 10/10/16 Topiramate (TOPIRAMATE) 100 Mg Tablet, 1 TAB PO DAILY 10/10/16 Reviewed Nurses Notes: Yes Hx Smoking: Yes Smoking Status: Current: Every Day Smoker Exposure to Second Hand Smoke?: Yes Hx Substance Use Disorder: Yes Hx Alcohol Use: Yes Constitutional Vital Sign - Last 24 Hours 10/25/18 14:32 Temp 98.7 Pulse 96 Resp 20 B/P (MAP) 121/68 Pulse Ox 94 O2 Delivery Room Air Physical Exam General Appearance: The patient is alert, has no immediate need for airway protection and no signs of toxicity. Eyes: Pupils equal and round no pallor or injection. ENT, Mouth: Mucous membranes are moist. MF stable. No e/o injury on face. No e/o forehead injury despite report of pain/trauma. No healing ecchymosis Respiratory: There are no retractions, lungs are clear to auscultation. Cardiovascular: Regular rate and rhythm. Gastrointestinal: Abdomen is soft and non tender, no masses, bowel sounds normal. Neurological: alert, moves all extremities Skin: Warm and dry, no rashes. No bruising, no laceration Musculoskeletal: Patient is in c-collar. She has tenderness at every single level of C, T, L-spine she has bilateral muscle tenderness throughout C, T, L- spine. Patient is unable to differentiate severity of central versus lateral pain. She is unable to differentiate severity of pain between upper, lower spine. Upon active range of motion, patient is only able to abduct her arms to 45. However passively I am easily able to range both arms throughout range of motion. Full range of motion and 5 out of 5 strength lower extremity. Normal sensation throughout. DIFFERENTIAL DIAGNOSIS: After history and physical exam differential diagnosis was considered for closed head injury, intracranial hemorrhage, spine injury, thoracic or abdominal injury, muscle spasm, or other complication of fall. Medical Decision Making ED Course/Re-evaluation ED Course Pt presents 4 days after fall complaining of pain throughout head/back. She has been ambulating at home without medications, but today states symptoms are worse. Unable to differentiate on exam, so appropriate scans ordered, though with low pretest probability. All scans negative for acute, emergent etiology. I administered ibuprofen which pt states she can take, and tylenol with minimal relief. At this point, reasonable and stable for discharge with SRP's. Decision to Disposition Date: Oct 25, 2018 Decision to Disposition Time: 16:41 Depart Departure Latest Vital Signs Vital Signs Date Time Temp Pulse Resp B/P (MAP) Pulse Ox O2 Delivery O2 Flow Rate FiO2 10/25/18 14:32 98.7 96 20 121/68 94 Room Air Core Temperature (Celsius): 37.50 Impression: Primary Impression: Tension type headache Additional Impression: Muscle spasm Condition: Improved Disposition: HOME OR SELF-CARE Referrals: SHREON PEARL APRN [employer] L[employer]UAGE TEACHER-C (PCP) Patient Instructions: Acute Headache (ED), Back Pain (ED) Additional Instructions: Return for uncontrolled symptoms or any concerns. Problem Qualifiers Primary Impression: Tension type headache Headache chronicity pattern: acute headache Intractability: intractable Qualified Codes: G44.201 - Tension-type headache, unspecified, intractable CHAN COHEN MD Oct 25, 2018 16:44
--- NOTE | 2018-10-25 16:50 | RADIOLOGY IMAGING REPORT ---
FACILITY: [facility] PATIENT NAME: Lamonte Erickson : 1960 MR: [id number] V: [id number] EXAM DATE: ORDERING PHYSICIAN: CHAN COHEN TECHNOLOGIST: Location: [facility] - [place] Patient: Lamonte Erickson : 1960 Visit/Account:[id number] Date of Sevice: 10/25/2018 CT thoracic spine Indication: Worsening back pain after fall. Comparison: 11/06/2015. Technique: Axial CT imaging of the thoracic spine was performed. 2-D sagittal and coronal CT reforma ts were also obtained.One of the following dose optimization techniques was utilized in the performan ce of this exam: automated exposure control; adjustment of the mA and/or kV according to the patient' s size; or use of an iterative reconstruction technique. Specific details can be referenced in the [facility]'s radiology CT exam operational policy. Findings: The vertebral bodies are aligned. No compression fractures or other fractures. No aggressive bony l esions. Degenerative osteophytes and mainly seen in the anterior lateral aspect. A small posterior osteophyte seen at the C6-7 level causing mild effacement anterior thecal sac without canal stenosis. This is unchanged from previous examination. No other significant posterior degenerative changes. The endplates are maintained. There is no obvious disc herniations. No areas of canal stenosis. T he foramina appear patent. Surrounding soft tissues are unremarkable. The visualized ribs show no f ocal abnormality. The soft tissues of the chest abdomen are unremarkable. Impression: 1. No acute osseous or acute alignment abnormality of the thoracic spine. Report Dictated By: Christopher Giron at 10/25/2018 4:37 PM Report E-Signed By: Christopher Giron at 10/25/2018 4:45 PM WSN:[id number]
[2018-10-25] MEDS ORDERED: IBUPROFEN 600 MG TAB TH PO ONE (16:55)
== END 2018-10-25 17:03 | disposition home or self-care (01) ==
LOC: ER 14:50
DX: G44.201 Tension-type headache, unspecified, intractable (principal); M25.512 Pain in left shoulder; M25.511 Pain in right shoulder; M54.9 Dorsalgia, unspecified; W01.190A Fall on same level from slipping, tripping and stumbling with subsequent striking against furniture, initial encounter
CPT/HCPCS: 70450; 72125; 72128; 99284; A9270

== ENCOUNTER → 2018-10-25 | Outpatient (CLI) | payer MEDICARE, MEDICAID ==
[~2018-10-25] MED LIST changes: -GABA-503 PO; +GABA-533 PO; +MULT-1379 PO; +NIC10R INH
== END ==
LOC: AMB 14:13
PROVIDERS: ATTEND Nurse Practitioner
DX: M54.5 Low back pain (principal); M54.2 Cervicalgia; M54.6 Pain in thoracic spine; R73.9 Hyperglycemia, unspecified; W18.30XA Fall on same level, unspecified, initial encounter
CPT/HCPCS: A0425; A0429

== ENCOUNTER → 2019-01-14 | Outpatient (CLI) | payer MEDICARE, MEDICAID ==
[~2019-01-14] MED LIST changes: -GABA-503 PO; +GABA-533 PO; +Glucometer; +KETO120S14 TP; +[UNRECOGNIZED DRUG - SUPPLY]
== END ==
LOC: LAB 15:22
PROVIDERS: ATTEND Nurse Practitioner Family
DX: E11.65 Type 2 diabetes mellitus with hyperglycemia (principal)
CPT/HCPCS: 36415; 83036

== ENCOUNTER → 2019-01-26 | Outpatient (CLI) | payer MEDICARE, MEDICAID | LOC: LAB 16:52 | PROVIDERS: ATTEND Nurse Practitioner Family | DX: R31.9 Hematuria, unspecified (principal) | CPT/HCPCS: 81001 ==

== ENCOUNTER 2019-01-31 18:49 | Emergency (ER) | payer MEDICARE, MEDICAID ==
[2019-01-31 19:02] VITALS: BP 133/89
--- NOTE | 2019-01-31 19:06 | ER Report ---
History and Physical Time Seen By MD: 18:59 HPI/ROS CHIEF COMPLAINT: Cough HISTORY OF PRESENT ILLNESS: This is a 58-year-old female who presents to emergency department for a cough. Patient states that she's had increased coughing over the last couple weeks, feels that she may have pneumonia, she has a semi-productive cough however she is not able to expel the phlegm. She denies fevers or chills. No nausea or vomiting. No chest pain. Increase oxygen demand secondary to her cough, she also states that she ran out of her Seroquel on or Friday night, she will be receiving a delivery tomorrow, she is requesting Seroquel to go home with tonight. She has no rashes, no meningismus. REVIEW OF SYSTEMS: Constitutional: No fever, no chills. Eyes: No discharge. ENT: No sore throat. Cardiovascular: No chest pain, no palpitations. Respiratory: As above. Gastrointestinal: No abdominal pain, no vomiting. Genitourinary: No hematuria. Musculoskeletal: No back pain. Skin: No rashes. Neurological: No headache. Allergies: Coded Allergies: ketorolac (Verified Allergy, Intermediate, MADE SYMTOMS WORSE, 09/12/18) NSAIDS (Non-Steroidal Anti-Inflamma (Verified Allergy, Mild, Vomiting, 09/12/18) butorphanol (Verified Allergy, Mild, facial burning, 09/12/18) morphine (Verified Allergy, Unknown, itch , 01/29/19) phenazopyridine HCl (Verified Allergy, Unknown, 09/12/18) sumatriptan succinate (Verified Allergy, Unknown, 09/12/18) Home Meds Active Scripts Ibuprofen (IBUPROFEN) 600 Mg Tablet, 1 TAB PO BID PRN for PAIN, #30 TAB 0 Refills Prov:SHERON PEARL APRNP-C 01/14/19 Oxybutynin Chloride (OXYBUTYNIN CHLORIDE) 5 Mg Tablet, 1 TAB PO BID, #180 TAB 0 Refills Prov:SHERON PEARL APRNP-C 12/28/18 Metformin Hcl (METFORMIN HCL) 500 Mg Tablet, 1 TAB PO BID, #180 TAB 1 Refill Prov:SHERON PEARL APRNP-C 11/27/18 Spironolactone (SPIRONOLACTONE) 25 Mg Tablet, 1 TAB PO DAILY, #90 TAB 1 Refill Prov:SHERON PEARL APRN 11/26/18 [Incontinence Supplie] No Conflict Check Prov:SHERON PEARL APRN-C 11/06/18 [Glucometer] No Conflict Check Prov:SHERON PEARL APRN-C 11/06/18 Levothyroxine Sodium (LEVOTHYROXINE SODIUM) 25 Mcg Tablet, 1 TAB PO QDAY, #90 TAB 0 Refills Prov:SHERON PEARL APRN-C 10/15/18 Quetiapine Fumarate (SEROQUEL) 200 Mg Tablet, 1 TAB PO QHS, #5 TAB 0 Refills Prov:SHERON PEARL APRN-C 08/14/18 Gabapentin (GABAPENTIN) 600 Mg Tablet, 1 TAB PO BID, #180 TAB 1 Refill Prov:SHERON PEARL APRN-C 07/24/18 NYSTATIN [id number] UNT/ML Topical Cream (NYSTATIN 766773 UNT/ML Topical Cream) 15 Gm Cream..g., 1 AN TP BID, #60 GM 2 Refills Apply to rash under breasts until resolved Prov:SHERON PEARL APRN-C 06/16/18 Diclofenac Sodium 1% Gel (VOLTAREN 1% GEL) 100 Gm Gel..gram., 4 GM TOP QID PRN for PAIN, #100 GM 2 Refills as needed for right knee pain Prov:SHERON PEARL APRNC 03/06/18 Insulin Detemir 100 UN/ML PEN (Levemir Flextouch) 100 Unit/1 Ml Insuln.pen, 40 UNITS SUBQ DAILY, #1 BOX 10 Refills Prov:SHERON PEARL APRN-C 11/17/17 Duloxetine Hcl (CYMBALTA) 60 Mg Capsule.dr, 1 CAP PO QDAY, #90 CAP 1 Refill Prov:SHERON PEARL APRN 10/10/17 Blood Sugar Diagnostic (BLOOD GLUCOSE TEST STRIP) 1 Each Strip, 1 STRIP MC DAILY, #30 BOT 4 Refills Prov:SHERON PEARL APRNC 06/02/17 Reported Medications Lurasidone Hcl (LATUDA) 60 Mg Tablet, 1 TAB PO DAILY 09/12/18 Omeprazole (OMEPRAZOLE) 40 Mg Capsule.dr, 40 MG PO BID, CAP 08/06/18 Lamotrigine (LAMOTRIGINE) 100 Mg Tablet, 1 TAB PO DAILY 10/10/16 Topiramate (TOPIRAMATE) 100 Mg Tablet, 1 TAB PO DAILY for migraines 10/10/16 Discontinued Reported Medications Nicotine (NICOTROL) 10 Mg/Inh Ctr, 10 MG INH Q2H PRN for NICOTINE REPLACEMENT 10/20/18 Multivits,Th W-Fe,Other Min (THERA-M) 1 Each Tablet, 1 EACH PO QDAY 10/20/18 Discontinued Scripts Tizanidine Hcl (TIZANIDINE HCL) 4 Mg Tablet, 1 TAB PO TID PRN for MUSCLE SPASMS, #30 TAB 0 Refills Prov:RYANNESHERON FERTILIZING MACHINE OPERATOR STOCK OR DELIVERY CLERK-C 11/26/18 Past Medical/Surgical History The patient has a past medical and surgical history of migraines, hypertension, hyperlipidemia, asthma, pneumonia, blood culture, reflux, arthritis, fractures, back pain, diabetes, hypothyroidism, polysubstance abuse, schizophrenia, depression, suicide attempts, pituitary gland surgery, pyloric stenosis repair, hernia repair, appendectomy, cholecystectomy, colonoscopy, hysterectomy, left knee surgery, tonsillectomy, eye surgery. Reviewed Nurses Notes: Yes Hx Smoking: Yes (Since age 18, 0.5-1 ppd) Smoking Status: Current: Every Day Smoker Exposure to Second Hand Smoke?: Yes Hx Substance Use Disorder: Yes Hx Alcohol Use: Yes (once 2-3 years ) Constitutional Vital Sign - Last 24 Hours 01/31/19 01/31/19 01/31/19 01/31/19 19:02 19:02 19:20 19:20 Temp 98.1 Pulse 80 81 Resp 15 18 B/P (MAP) 133/89 Pulse Ox 100 99 O2 Delivery Room Air Non-Rebreather O2 Flow Rate 10.0 01/31/19 19:29 Pulse 80 Resp 18 Physical Exam General Appearance: The patient is alert, has no immediate need for airway protection and no signs of toxicity. Eyes: Pupils equal and round no pallor or injection. ENT, Mouth: Mucous membranes are moist. Respiratory: There are no retractions, diminished in bases, and expiratory wheezes throughout. Cardiovascular: Regular rate and rhythm, distant, no murmurs, clicks or rubs. Gastrointestinal: Abdomen is soft and non tender, no masses, bowel sounds normal. Neurological: Alert and oriented 4. Moving all extremities. Following all commands. No focal neuro deficits. Skin: Warm and dry, no rashes. Musculoskeletal: Neck is supple non tender. Extremities are nontender, nonswollen and have full range of motion. DIFFERENTIAL DIAGNOSIS: After history and physical exam differential diagnosis was considered for shortness of breath including but not limited to pulmonary infectious process, COPD, asthma, pulmonary embolus and congestive heart failure. Medical Decision Making Data Points Result Diagram: 01/31/194 01/31/194 Laboratory Hematology Test 01/31/19 18:54 Red Blood Count 5.90 M/uL (4.17-5.56) Mean Corpuscular Volume 89.6 fL (80.0-96.0) Mean Corpuscular Hemoglobin 28.7 pg (26.0-33.0) Mean Corpuscular Hemoglobin Concent 32.0 g/dL (32.0-36.0) Red Cell Distribution Width 15.7 % (11.5-14.5) Mean Platelet Volume 8.6 fL (7.2-11.1) Neutrophils (%) (Auto) 79.8 % (39.4-72.5) Lymphocytes (%) (Auto) 10.3 % (17.6-49.6) Monocytes (%) (Auto) 6.9 % (4.1-12.4) Eosinophils (%) (Auto) 2.1 % (0.4-6.7) Basophils (%) (Auto) 0.9 % (0.3-1.4) Nucleated RBC Relative Count (auto) 0.0 /100WBC Neutrophils # (Auto) 7.0 K/uL (2.0-7.4) Lymphocytes # (Auto) 0.9 K/uL (1.3-3.6) Monocytes # (Auto) 0.6 K/uL (0.3-1.0) Eosinophils # (Auto) 0.2 K/uL (0.0-0.5) Basophils # (Auto) 0.1 K/uL (0.0-0.1) Nucleated RBC Absolute Count (auto) 0.00 K/uL Sodium Level 140 mmol/L (137-145) Potassium Level 4.3 mmol/L (3.5-5.0) Chloride Level 108 mmol/L (98-107) Carbon Dioxide Level 26 mmol/L (22-31) Blood Urea Nitrogen 22 mg/dl (7-18) Creatinine 0.90 mg/dl (0.52-1.04) Glomerular Filtration Rate Calc > 60.0 Random Glucose 197 mg/dl (75-110) Calcium Level 8.8 mg/dl (8.4-10.2) Total Bilirubin 0.3 mg/dl (0.2-1.3) Aspartate Amino Transf (AST/SGOT) 19 U/L (0-35) Alanine Aminotransferase (ALT/SGPT) 19 U/L (0-56) Alkaline Phosphatase 152 U/L (0-126) Total Protein 7.2 g/dl (6.3-8.2) Albumin 4.1 g/dl (3.5-5.0) Chemistry Test 01/31/19 18:54 White Blood Count 8.8 k/uL (4.5-11.0) Red Blood Count 5.90 M/uL (4.17-5.56) Hemoglobin 16.9 g/dL (12.0-16.0) Hematocrit 52.9 % (34.0-47.0) Mean Corpuscular Volume 89.6 fL (80.0-96.0) Mean Corpuscular Hemoglobin 28.7 pg (26.0-33.0) Mean Corpuscular Hemoglobin Concent 32.0 g/dL (32.0-36.0) Red Cell Distribution Width 15.7 % (11.5-14.5) Platelet Count 209 K/uL (150-450) Mean Platelet Volume 8.6 fL (7.2-11.1) Neutrophils (%) (Auto) 79.8 % (39.4-72.5) Lymphocytes (%) (Auto) 10.3 % (17.6-49.6) Monocytes (%) (Auto) 6.9 % (4.1-12.4) Eosinophils (%) (Auto) 2.1 % (0.4-6.7) Basophils (%) (Auto) 0.9 % (0.3-1.4) Nucleated RBC Relative Count (auto) 0.0 /100WBC Neutrophils # (Auto) 7.0 K/uL (2.0-7.4) Lymphocytes # (Auto) 0.9 K/uL (1.3-3.6) Monocytes # (Auto) 0.6 K/uL (0.3-1.0) Eosinophils # (Auto) 0.2 K/uL (0.0-0.5) Basophils # (Auto) 0.1 K/uL (0.0-0.1) Nucleated RBC Absolute Count (auto) 0.00 K/uL Glomerular Filtration Rate Calc > 60.0 Calcium Level 8.8 mg/dl (8.4-10.2) Total Bilirubin 0.3 mg/dl (0.2-1.3) Aspartate Amino Transf (AST/SGOT) 19 U/L (0-35) Alanine Aminotransferase (ALT/SGPT) 19 U/L (0-56) Alkaline Phosphatase 152 U/L (0-126) Total Protein 7.2 g/dl (6.3-8.2) Albumin 4.1 g/dl (3.5-5.0) EKG/Imaging Imaging Location: [facility] - [place] Patient: Lamonte Erickson : 1960 Visit/Account:[id number] Date of Sevice: 01/31/2019 2 VIEWS CHEST INDICATION: Shortness breath. Low oxygen. COMPARISON: 01/31/2019. FINDINGS: Cardiomediastinal silhouette and pulmonary vessels within normal limits. There is no focal infiltrate or lobar consolidation. There is no pneumothorax or pleural effusion. No discrete nodule. Chronic interstitial changes. Upper abdomen is unremarkable. No acute bony abnormality. IMPRESSION: 1. No acute cardiopulmonary process. Report Dictated By: Christopher Giron at 01/31/2019 8:25 PM Report E-Signed By: Christopher Giron at 01/31/2019 8:26 PM [id number] ED Course/Re-evaluation Clinical Indication for ER IV: Hydration, IV Access ED Course The patient was admitted to room. A history and physical were obtained. Diff erential diagnoses were considered. A CBC, CMP were obtained. H&H 16.9 52.9, similar to historical data, chemistry showing no significant changes. Two-view chest x-ray negative for any acute cardiopulmonary process. Patient was not febrile, no hypotensive episodes in the ER, 95-100% oxygen saturation on room air, she did have some wheezing upon arrival, she was given a DuoNeb which did provide some relief. Patient continued to ask for a dose of Seroquel, she was given her nightly dose, 200 mg, she'll follow up with her primary care provider this week. The patient had no other questions or concerns at this time and was discharged home. Decision to Disposition Date: Jan 31, 2019 Decision to Disposition Time: 20:39 Depart Departure Latest Vital Signs Vital Signs Date Time Temp Pulse Resp B/P (MAP) Pulse Ox O2 Delivery O2 Flow Rate FiO2 01/31/19 19:29 80 18 01/31/19 19:20 99 Non-Rebreather 01/31/19 19:02 98.1 133/89 01/31/19 19:02 10.0 Core Temperature (Celsius): 37.50 Impression: Primary Impression: Cough Condition: Improved Disposition: HOME OR SELF-CARE Referrals: SHERON PEARL APRN STOCK OR DELIVERY CLERK-C (PCP) 1 Week Patient Instructions: Acute Cough (ED) Additional Instructions: There was no sign of pneumonia today, your laboratory studies look good, similar to previous laboratory studies, no elevated white blood cell count, chest x-ray does not reveal pneumonia. This acute coughing phase could be secondary to a viral illness that you have acquired. Continue taking your home medications as prescribed. Drink plenty of water. Get plenty of rest. Follow-up with your primary care provider within one week for reevaluation. Return to the ER for any other concerns or worsening symptoms per KYLAH NUNES STOCK OR DELIVERY CLERK-BC Jan 31, 2019 19:06
[2019-01-31] MEDS ORDERED: NS(*) 0.9% 1000 ML BAG 1,000 ML IV ONE (19:13)
[2019-01-31] MEDS ORDERED: ALBUTEROL/IPRATROPIUM 3 ML NEB NEB ONE (19:15)
[2019-01-31 19:28] LABS: PLATELET COUNT, AUTOMATED 209 K/uL (150-450)
--- NOTE | 2019-01-31 20:30 | RADIOLOGY IMAGING REPORT ---
FACILITY: [facility] PATIENT NAME: Lamonte Erickson : 1960 MR: [id number] V: [id number] EXAM DATE: ORDERING PHYSICIAN: KYLAH NUNES TECHNOLOGIST: Location: [facility] - [place] Patient: Lamonte Erickson : 1960 Visit/Account:[id number] Date of Sevice: 01/31/2019 2 VIEWS CHEST INDICATION: Shortness breath. Low oxygen. COMPARISON: 01/31/2019. FINDINGS: Cardiomediastinal silhouette and pulmonary vessels within normal limits. There is no focal infiltrate or lobar consolidation. There is no pneumothorax or pleural effusion. No discrete nodule. Chronic interstitial changes. Upper abdomen is unremarkable. No acute bony abnormality. IMPRESSION: 1. No acute cardiopulmonary process. Report Dictated By: Christopher Giron at 01/31/2019 8:25 PM Report E-Signed By: Christopher Giron at 01/31/2019 8:26 PM WSN:[id number]
[2019-01-31] MEDS ORDERED: QUEtiapine FUM 100 MG TAB PO ONE (20:40)
== END 2019-01-31 21:02 | disposition home or self-care (01) ==
LOC: ER 19:18
DX: R05 Cough (principal); F17.210 Nicotine dependence, cigarettes, uncomplicated
CPT/HCPCS: 71046; 85025; 94640; 99283; A9270; J7030; J7620; 82040; 82247; 82310; 82374; 82435; 82565; 82947; 84075; 84132; 84155; 84295; 84450; 84460; 84520

== ENCOUNTER → 2019-01-31 | Outpatient (CLI) | payer MEDICARE, MEDICAID | LOC: AMB 18:34 | PROVIDERS: ATTEND Nurse Practitioner | DX: R06.02 Shortness of breath (principal); R05 Cough; R51 Headache | CPT/HCPCS: A0425; A0427 ==

== ENCOUNTER → 2019-02-01 | Outpatient (CLI) | payer MEDICARE, MEDICAID ==
[~2019-02-01] VITALS: Ht 167.6 cm; Wt 117.5 kg
--- NOTE | 2019-02-01 16:15 | RADIOLOGY IMAGING REPORT ---
FACILITY: [facility] - [place] PATIENT NAME: Lamonte Erickson : 1960 MR: [id number] V: [id number] EXAM DATE: ORDERING PHYSICIAN: SHERON PEARL TECHNOLOGIST: Location: [facility] - [place] Patient: Lamonte Erickson : 1960 Visit/Account:[id number] Date of Sevice: 02/01/2019 EXAMINATION: CT abdomen without IV contrast CT pelvis without IV contrast HISTORY: Hematuria. COMPARISON: CT abdomen and pelvis from 07/13/2017. TECHNIQUE: Axial images were taken through the abdomen and pelvis without intravenous contrast. Sag ittal and coronal reformatted images are also submitted. One of the following dose optimization techniques was utilized in the performance of this exam: Autom ated exposure control; adjustment of the mA and/or kV according to the patient's size; or use of an i terative reconstruction technique. Specific details can be referenced in the facility's radiology C T exam operational policy. FINDINGS: Please note that without intravenous contrast, sensitivity to detection of parenchymal disease is cohen ited. Liver/biliary: Previous cholecystectomy. 2 sharply defined hypodensities in the left lobe of the zoltan er measuring up to 11 mm are the same to slightly smaller from prior exam. No biliary ductal dilatat ion. Pancreas: Negative. Spleen: Negative. Adrenal glands: 1.8 cm left adrenal lesion with Hounsfield units of -13, minimally larger from 1.6 cm . Kidneys: The contour of the right kidney inferiorly and posteriorly is more prominent, with a 3.2 cm hypodense lesion, increased in size from 2.5 cm. Pelvic structures: Previous hysterectomy. Bowel: Negative. Peritoneum/retroperitoneum/mesenteries: Negative. Vessels: Negative. Musculoskeletal/body wall: Mild degenerative changes at L4-5. Lymph nodes: Negative. Lower chest: Negative. IMPRESSION: 1. 3.2 cm right renal hypodensity is increased in size from 2.5 cm. This could be a cyst or a solid mass. If the patient can tolerate IV contrast, CT abdomen with IV contrast is recommended. She att empted MRI previously but was unable to complete the exam-MRI kidneys without and with IV contrast wo uld be most specific if possible. 2. 1.8 cm left adrenal adenoma is slightly larger. 3. 2 sharply defined liver hypodensities are the same to slightly smaller, and are most likely benig n cysts or hemangiomata. Report Dictated By: Bobbi Randolph MD at 02/01/2019 4:04 PM Report E-Signed By: Bobbi Randolph MD at 02/01/2019 4:11 PM WSN:[id number]
== END ==
LOC: CT 00:42
PROVIDERS: ATTEND Nurse Practitioner Family
DX: R31.9 Hematuria, unspecified (principal); D35.02 Benign neoplasm of left adrenal gland
CPT/HCPCS: 74176

== ENCOUNTER 2019-02-04 11:54 | Emergency (ER) | payer MEDICARE, MEDICAID ==
[~2019-02-04 11:54] MED LIST changes: -LIDOCAINE/SOD BICARB 8.4% SYR ID ONE; -NORMOSOL R SOLN(*) 1000 ML BAG 1,000 ML IV PRN
--- NOTE | 2019-02-04 11:59 | ER Report ---
History and Physical Time Seen By MD: 11:58 HPI/ROS 02/04/2019 12:01:23 pm he was brought over from preoperative O2 sats. She was supposed to have a colonoscopy today. However when the nurse began triaging the patient the patient stated that she did not want to be seen in the emergency department today and is willing to sign out against medical advice prior to physician evaluation. Allergies: Coded Allergies: ketorolac (Verified Allergy, Intermediate, MADE SYMTOMS WORSE, 09/12/18) NSAIDS (Non-Steroidal Anti-Inflamma (Verified Allergy, Mild, Vomiting, 09/12/18) butorphanol (Verified Allergy, Mild, facial burning, 09/12/18) morphine (Verified Allergy, Unknown, itch , 01/29/19) phenazopyridine HCl (Verified Allergy, Unknown, 09/12/18) sumatriptan succinate (Verified Allergy, Unknown, 09/12/18) Home Meds Active Scripts Ibuprofen (IBUPROFEN) 600 Mg Tablet, 1 TAB PO BID PRN for PAIN, #30 TAB 0 Refills Prov:SHERON PEARL APRN-C 01/14/19 Oxybutynin Chloride (OXYBUTYNIN CHLORIDE) 5 Mg Tablet, 1 TAB PO BID, #180 TAB 0 Refills Prov:SHERON PEARL APRN-Joanne 12/28/18 Metformin Hcl (METFORMIN HCL) 500 Mg Tablet, 1 TAB PO BID, #180 TAB 1 Refill Prov:SHERON PEARL APRN-C 11/27/18 Spironolactone (SPIRONOLACTONE) 25 Mg Tablet, 1 TAB PO DAILY, #90 TAB 1 Refill Prov:SHERON PEARL APRN 11/26/18 [Incontinence Supplie] No Conflict Check Prov:SHERON PEARL APRN 11/06/18 [Glucometer] No Conflict Check Prov:SHERON PEARL APRNC 11/06/18 Levothyroxine Sodium (LEVOTHYROXINE SODIUM) 25 Mcg Tablet, 1 TAB PO QDAY, #90 TAB 0 Refills Prov:SHERON PEARL APRN-Joanne 10/15/18 Quetiapine Fumarate (SEROQUEL) 200 Mg Tablet, 1 TAB PO QHS, #5 TAB 0 Refills Prov:SHERON PEARL APRN [facility]- 08/14/18 Gabapentin (GABAPENTIN) 600 Mg Tablet, 1 TAB PO BID, #180 TAB 1 Refill Prov:SHERON PEARL APRN [facility]- 07/24/18 NYSTATIN 399438 UNT/ML Topical Cream (NYSTATIN 564089 UNT/ML Topical Cream) 15 Gm Cream..g., 1 AN TP BID, #60 GM 2 Refills Apply to rash under breasts until resolved Prov:SHERON PEARL APRN [facility]- 06/16/18 Diclofenac Sodium 1% Gel (VOLTAREN 1% GEL) 100 Gm Gel..gram., 4 GM TOP QID PRN for PAIN, #100 GM 2 Refills as needed for right knee pain Prov:SHERON PEARL APRN [facility]- 03/06/18 Insulin Detemir 100 UN/ML PEN (Levemir Flextouch) 100 Unit/1 Ml Insuln.pen, 40 UNITS SUBQ DAILY, #1 BOX 10 Refills Prov:SHERON PEARL APRN [facility] 11/17/17 Duloxetine Hcl (CYMBALTA) 60 Mg Capsule.dr, 1 CAP PO QDAY, #90 CAP 1 Refill Prov:SHERON PEARL APRN [facility] 10/10/17 Blood Sugar Diagnostic (BLOOD GLUCOSE TEST STRIP) 1 Each Strip, 1 STRIP MC DAILY, #30 BOT 4 Refills Prov:SHERON PEARL APRN [facility]- 06/02/17 Reported Medications Lurasidone Hcl (LATUDA) 60 Mg Tablet, 1 TAB PO DAILY 09/12/18 Omeprazole (OMEPRAZOLE) 40 Mg Capsule.dr, 40 MG PO BID, CAP 08/06/18 Lamotrigine (LAMOTRIGINE) 100 Mg Tablet, 1 TAB PO DAILY 10/10/16 Topiramate (TOPIRAMATE) 100 Mg Tablet, 1 TAB PO DAILY for migraines 10/10/16 Discontinued Reported Medications Nicotine (NICOTROL) 10 Mg/Inh Ctr, 10 MG INH Q2H PRN for NICOTINE REPLACEMENT 10/20/18 Multivits,Th W-Fe,Other Min (THERA-M) 1 Each Tablet, 1 EACH PO QDAY 10/20/18 Discontinued Scripts Tizanidine Hcl (TIZANIDINE HCL) 4 Mg Tablet, 1 TAB PO TID PRN for MUSCLE SPASMS, #30 TAB 0 Refills Prov:SHERON PEARL APRN 11/26/18 Past Medical/Surgical History The patient has a past medical and surgical history of migraines, hypertension, hyperlipidemia, asthma, pneumonia, blood culture, reflux, arthritis, fractures, back pain, diabetes, hypothyroidism, polysubstance abuse, schizophrenia, depression, suicide attempts, pituitary gland surgery, pyloric stenosis repair, hernia repair, appendectomy, cholecystectomy, colonoscopy, hysterectomy, left knee surgery, tonsillectomy, eye surgery. Hx Smoking: Yes (Since age 18, 0.5-1 ppd) Smoking Status: Current: Every Day Smoker Exposure to Second Hand Smoke?: Yes Hx Substance Use Disorder: No (age 18 ) Hx Alcohol Use: Yes (once 2-3 years ) Physical Exam Patient was not seen Medical Decision Making ED Course/Re-evaluation ED Course Patient will sign out AMA prior to physician evaluation Decision to Disposition Date: Feb 04, 2019 Decision to Disposition Time: 12:02 Depart Departure Core Temperature (Celsius): 37.50 Impression: Primary Impression: Hypoxia Condition: Condition Unchanged Disposition: AGAINST MED ADV / DISCONT CARE Referrals: SHERON PEARL APRN-C (PCP) CHAN STACK MD Feb 04, 2019 11:58
== END 2019-02-04 12:11 | disposition left against medical advice (07) ==
LOC: ER 12:07
DX: R09.02 Hypoxemia (principal)

== ENCOUNTER → 2019-02-04 | Day surgery (SDC) | payer MEDICARE, MEDICAID ==
[~2019-02-04] VITALS: Ht 167.6 cm; Wt 124.7 kg
[~2019-02-04] MED LIST changes: +LIDOCAINE/SOD BICARB 8.4% SYR ID ONE; +NORMOSOL R SOLN(*) 1000 ML BAG 1,000 ML IV PRN
[2019-02-04 10:01] VITALS: BP 112/63
== END ==
LOC: OR 00:49
PROVIDERS: ATTEND Internal Medicine Gastroenterology
DX: R09.02 Hypoxemia (principal)

== ENCOUNTER → 2019-02-11 | Outpatient (CLI) | payer MEDICARE, MEDICAID ==
[~2019-02-11] MED LIST changes: +IOPAMIDOL 76% 150 ML INFUS BTL 150 ML ONE
--- NOTE | 2019-02-11 12:20 | RADIOLOGY IMAGING REPORT ---
[place] [facility] [place] NAME: Lamonte Erickson : 1960 MR: [id number] V: [id number] EXAM DATE: ORDERING PHYSICIAN: SHERON PEARL TECHNOLOGIST: [place] [facility] [place]onte Erickson : 1960 Visit/Account:[id number] Date of Sevice: 02/11/2019 CT ABDOMEN PELVIS W & W/O CONTRAST HISTORY: Renal Mass TECHNIQUE: Axial images acquired through the abdomen/pelvis both with and without IV contrast.. Raúl nal and sagittal reformatting also performed.Dose Lowering Technique One of the following dose optimization techniques was utilized in the performance of this exam: Autom ated exposure control; adjustment of the mA and/or kV according to the patient's size; or use of an i terative reconstruction technique. Specific details can be referenced in the facility's radiology C T exam operational policy. CONTRAST: 75 mL [id number] COMPARISON: February 01, 2019 FINDINGS: Visualized lung bases: Incompletely imaged is a groundglass opacity in the inferior right middle lob e measuring approximately 8 x 5 mm. There is a small pericardial effusion slightly increased when co mpared to the prior study Hepatobiliary: Postsurgical changes from a cholecystectomy. Two hypoattenuating masses within the l eft lobe the liver appear relatively unchanged additional tiny hypoattenuating lesions within the zoltan er also appear unchanged. The liver appears mildly enlarged measuring up to 20.3 cm in length. Spleen: Spleen also appears enlarged measuring 15.8 cm in length and is increased from 13.1 cm previ ously Adrenals: 1.8 cm hypoattenuating left adrenal mass appears unchanged in size measuring -8 Hounsfield units on the noncontrast study likely related to benign adenoma. The right adrenal gland appears un remarkable Pancreas: Negative. Kidneys ureters and bladder: 8 mm hypoattenuating lesion medial right kidney is too small to characte rize. The hypoattenuating mass inferior pole of the right kidney measures approximately 2.6 cm in d iameter slightly decreased when compared to the prior CT although the appearance is indeterminate and further evaluation with MR may be helpful. Bladder is mildly distended Genitalia: Hysterectomy GI: There surgical clips adjacent to the cecum which may be related to prior appendectomy. There is a moderate amount of fecal material throughout colon which can be seen with constipation. Vessels/spaces/nodes: Negative. Bones/soft tissues: There postsurgical changes from a ventral hernia repair with mesh. There are sp ondylotic changes lower lumbar spine Additional findings: None pertinent. IMPRESSION: There is a small pericardial effusion which is slightly increased when compared to the prior study Incompletely imaged is a groundglass opacity in the inferior right middle lobe measuring approximatel y 8 x 5 mm [employer] FOLLOW-UP GUIDELINES FOR NEWLY DETECTED INCIDENTAL NODULES IN PERSONS 35 YEARS OF AGE OR OLDER. *These recommendations do NOT apply to lung cancer screening, patients with immunosuppression or aj ents with a known primary malignancy. SOLITARY SOLID NODULE If nodule size is < 6 mm: * Low risk patient ? No routine follow-up. * High risk patient ? Optional CT at 12 months. If nodule size is 6-8 mm: * Low risk patient ? CT at 6-12 months, then consider CT at 18-24 months if no change. * High risk patient ? CT at 6-12 months, then CT at 18-24 months if no change. If nodule size is > 8 mm: * Low risk patient ? Consider CT at 3, 9 and 24 months (if no change), PET/CT, tissue sampling or a combination thereof. * High risk patient ? Consider CT at 3, 9 and 24 months (if no change), PET/CT, tissue sampling, or a combination thereof. LOW RISK PATIENT: Minimal or absent history of tobacco use and of other known risk factors. HIGH RISK PATIENT: Tobacco use, family history of lung cancer, upper pulmonary lobe location of nodul e, presence of emphysema, pulmonary fibrosis, ol er age. Precious H, Shiva DP, Beena JM, et al. Guidelines for Management of Incidental Pulmonary Nodules Dete cted on CT Images: From the Fleischner Society 2017. Radiology. uchnipnHepatosplenomegaly. Spleen is slightly increased in size when compared to the prior study. 1.8 cm hypoattenuating left adrenal mass likely representing an adenoma appears stable. The hypoattenuating mass lower pole of the right kidney measures 2.6 cm in diameter. This appears sm aller when compared the prior study although difficult to directly compare due to difference in imagi ng technique (current examination is performed with and without contrast and prior examination withou t contrast only. This does appear indeterminate and further evaluation with MR may be helpful Additional chronic findings as described Report Dictated By: Cynthia Solano MD at 02/11/2019 11:57 AM Report E-Signed By: Cynthia Solano MD at 02/11/2019 12:15 PM WSN:[id number]
== END ==
LOC: CT 00:41
PROVIDERS: ATTEND Nurse Practitioner Family
DX: J90 Pleural effusion, not elsewhere classified (principal); R91.8 Other nonspecific abnormal finding of lung field; Z98.890 Other specified postprocedural states
CPT/HCPCS: 74178; Q9967

== ENCOUNTER 2019-04-25 18:20 | Emergency (ER) | payer MEDICARE, MEDICAID ==
[~2019-04-25 18:20] MED LIST changes: -FURO20TA19 PO; -[UNRECOGNIZED DRUG - CODE] MC; -[UNRECOGNIZED DRUG - SUPPLY]
[2019-04-25] MEDS ORDERED: ACETAMINOPHEN(*)1000 MG/100 ML 100 ML IVPB ONE (18:30)
--- NOTE | 2019-04-25 18:31 | ER Report ---
History and Physical Time Seen By MD: 18:29 Hx. of Stated Complaint: PRESENTS WITH TONY LEG SWELLING, REDNESS AND PAIN. STATES INCREASED SOB X 1 MO. HPI/ROS CHIEF COMPLAINT: Shortness of breath 1 month, increased bilateral leg swelling HISTORY OF PRESENT ILLNESS: 58-year-old female brought in by EMS from home complaining of severe bilateral leg pain and swelling for several days. Patient notes there is erythema on her legs. They feel warm to the touch. She's had no subjective fevers or chills. She denies productive cough. She does not she's had a dry cough for one month. She does not where O2. Her room air pulse ox is 89%. Patient denies chest pain. Patient reports she has an appointment on 05/03/19 to see her primary care about her increased leg swelling. REVIEW OF SYSTEMS: Respiratory: As above Cardiovascular: No chest pain, no palpitations. Gastrointestinal: No vomiting, no abdominal pain. Musculoskeletal: As above Allergies: Coded Allergies: ketorolac (Verified Allergy, Intermediate, MADE SYMTOMS WORSE, 04/25/19) NSAIDS (Non-Steroidal Anti-Inflamma (Verified Allergy, Mild, Vomiting, 04/25/19) butorphanol (Verified Allergy, Mild, facial burning, 04/25/19) morphine (Verified Allergy, Unknown, itch , 04/25/19) phenazopyridine HCl (Verified Allergy, Unknown, 04/25/19) sumatriptan succinate (Verified Allergy, Unknown, 04/25/19) Home Meds Active Scripts Furosemide (LASIX) 20 Mg Tablet, 1 TAB PO DAILY for leg swelling, #10 TAB Prov:ALEXA FRANKEL Martina DO 04/25/19 Cephalexin Monohydrate (CEPHALEXIN) 500 Mg Cap, 500 MG PO TID for infection, #20 CAP TAKE 1 CAPSULE BY MOUTH EVERY SIX HOURS Prov:ALEXA FRANKEL Martina DO 04/25/19 Ibuprofen (IBUPROFEN) 600 Mg Tablet, 1 TAB PO BID PRN for PAIN, #30 TAB 0 Refills Prov:SEHRON PEARL APRN-C 03/30/19 Oxybutynin Chloride (OXYBUTYNIN CHLORIDE) 5 Mg Tablet, 1 TAB PO BID, #180 TAB 0 Refills Prov:SHERON PEARL APRNP-C 03/30/19 Levothyroxine Sodium (LEVOTHYROXINE SODIUM) 25 Mcg Tablet, 1 TAB PO QDAY, #90 TAB 0 Refills Prov:SHERON PEARL APRN-C 03/11/19 Gabapentin (GABAPENTIN) 600 Mg Tablet, 1 TAB PO BID, #180 TAB 1 Refill Prov:SHERON PEARL APRN-C 02/26/19 Metformin Hcl (METFORMIN HCL) 500 Mg Tablet, 1 TAB PO BID, #180 TAB 1 Refill Prov:SHERON PEARL APRNC 11/27/18 Spironolactone (SPIRONOLACTONE) 25 Mg Tablet, 1 TAB PO DAILY, #90 TAB 1 Refill Prov:SHERON PEARL APRN 11/26/18 [Incontinence Supplie] No Conflict Check Prov:SHERON PEARL APRNC 11/06/18 [Glucometer] No Conflict Check Prov:SEHRON PEARL APRNC 11/06/18 Quetiapine Fumarate (SEROQUEL) 200 Mg Tablet, 1 TAB PO QHS, #5 TAB 0 Refills Prov:SHERON PEARL APRN-C 08/14/18 NYSTATIN [id number] UNT/ML Topical Cream (NYSTATIN 890333 UNT/ML Topical Cream) 15 Gm Cream..g., 1 AN TP BID, #60 GM 2 Refills Apply to rash under breasts until resolved Prov:SHERON PEARL APRN-C 06/16/18 Insulin Detemir 100 UN/ML PEN (Levemir Flextouch) 100 Unit/1 Ml Insuln.pen, 40 UNITS SUBQ DAILY, #1 BOX 10 Refills Prov:SHERON PEARL APRN-C 11/17/17 Duloxetine Hcl (CYMBALTA) 60 Mg Capsule.dr, 1 CAP PO QDAY, #90 CAP 1 Refill Prov:SHERON PEARL APRN 10/10/17 Blood Sugar Diagnostic (BLOOD GLUCOSE TEST STRIP) 1 Each Strip, 1 STRIP MC DAILY, #30 BOT 4 Refills Prov:SHERON PEARL APRNC 06/02/17 Reported Medications Lurasidone Hcl (LATUDA) 60 Mg Tablet, 1 TAB PO DAILY 09/12/18 Omeprazole (OMEPRAZOLE) 40 Mg Capsule.dr, 40 MG PO BID, CAP 08/06/18 Lamotrigine (LAMOTRIGINE) 100 Mg Tablet, 1 TAB PO DAILY 10/10/16 Topiramate (TOPIRAMATE) 100 Mg Tablet, 1 TAB PO DAILY for migraines 10/10/16 Discontinued Scripts Diclofenac Sodium 1% Gel (VOLTAREN 1% GEL) 100 Gm Gel..gram., 4 GM TOP QID PRN for PAIN, #100 GM 2 Refills as needed for right knee pain Prov:SHERON PEARL APRN [employer]CISION [employer] TECHNICIAN-C 03/06/18 Past Medical/Surgical History The patient has a past medical and surgical history of migraines, hypertension, hyperlipidemia, asthma, pneumonia, blood culture, reflux, arthritis, fractures, back pain, diabetes, hypothyroidism, polysubstance abuse, schizophrenia, depression, suicide attempts, pituitary gland surgery, pyloric stenosis repair, hernia repair, appendectomy, cholecystectomy, colonoscopy, hysterectomy, left knee surgery, tonsillectomy, eye surgery. Reviewed Nurses Notes: Yes Old Medical Records Reviewed: Yes Hx Smoking: Yes (Since age 18, 0.5-1 ppd) Smoking Status: Current: Every Day Smoker Exposure to Second Hand Smoke?: Yes Hx Substance Use Disorder: No (age 18 ) Hx Alcohol Use: Yes (once 2-3 years ) Constitutional Vital Sign - Last 24 Hours 04/25/19 04/25/19 04/25/19 04/25/19 18:20 18:21 18:22 18:23 Temp 97.8 Pulse ??? 86 Resp 22 B/P (MAP) 124/86 (99) 132/75 (94) 132/75 Pulse Ox 89 O2 Delivery Nasal Cannula 04/25/19 04/25/19 04/25/19 04/25/19 18:25 18:30 18:50 18:52 Pulse 76 74 Resp 14 20 B/P (MAP) 120/77 (91) 117/77 (90) Pulse Ox 91 04/25/19 04/25/19 04/25/19 04/25/19 18:52 19:00 19:04 19:05 Pulse 72 Resp 20 B/P (MAP) 105/48 (67) Pulse Ox 93 O2 Delivery Nasal Cannula O2 Flow Rate 2.0 2.0 04/25/19 04/25/19 04/25/19 04/25/19 19:20 19:25 19:30 19:55 Pulse 93 ??? 77 Resp 16 14 18 B/P (MAP) 124/72 (89) Pulse Ox 91 84 90 04/25/19 04/25/19 04/25/19 04/25/19 20:00 20:25 20:55 21:00 Pulse 74 68 78 Resp 17 26 8 B/P (MAP) 133/78 (96) 117/70 (86) Pulse Ox 91 91 92 04/25/19 04/25/19 21:15 21:30 Pulse ??? 68 Resp 17 16 B/P (MAP) 111/64 (80) Pulse Ox 86 Intake and Output 04/25/19 04/25/19 04/26/19 15:02 23:02 07:02 Intake Total 100 ml Balance 100 ml Physical Exam Vital signs stable, afebrile, pulse ox borderline 89%, mild distress General Appearance: The patient is alert, has no immediate need for airway protection and no current signs of toxicity. Skin warm, dry, pink HEENT: Pupils equal and round no injection. TMs normal, oropharynx with mild erythema, no exudate Respiratory: Chest is non tender, lungs are clear to auscultation. Faint Gonzalo, wheezing Cardiac: regular rate and rhythm, no murmur Gastrointestinal: Abdomen is soft and non tender, no masses, bowel sounds normal. Musculoskeletal: Neck: Neck is supple and non tender. No JVD, no lymphadenopathy Extremities have full range of motion and are non tender. 2+ edema bilaterally to the knees, there is erythema on the lower half of the shins extending to the feet. Skin: No rashes or lesions. DIFFERENTIAL DIAGNOSIS: After history and physical exam differential diagnosis was considered for shortness of breath including but not limited to pulmonary infectious process, COPD, asthma, pulmonary embolus and congestive heart failure. Fluid overload state, edema, DVT, Medical Decision Making Data Points Result Diagram: 04/25/197 04/25/191846 Laboratory Hematology Test 04/25/19 18:47 04/25/19 19:20 Red Blood Count 5.72 M/uL (4.17-5.56) Mean Corpuscular Volume 79.8 fL (80.0-96.0) Mean Corpuscular Hemoglobin 25.3 pg (26.0-33.0) Mean Corpuscular Hemoglobin Concent 31.7 g/dL (32.0-36.0) Red Cell Distribution Width 17.9 % (11.5-14.5) Mean Platelet Volume 8.0 fL (7.2-11.1) Neutrophils (%) (Auto) 74.9 % (39.4-72.5) Lymphocytes (%) (Auto) 11.5 % (17.6-49.6) Monocytes (%) (Auto) 8.0 % (4.1-12.4) Eosinophils (%) (Auto) 4.9 % (0.4-6.7) Basophils (%) (Auto) 0.7 % (0.3-1.4) Nucleated RBC Relative Count (auto) 0.6 /100WBC Neutrophils # (Auto) 6.1 K/uL (2.0-7.4) Lymphocytes # (Auto) 0.9 K/uL (1.3-3.6) Monocytes # (Auto) 0.7 K/uL (0.3-1.0) Eosinophils # (Auto) 0.4 K/uL (0.0-0.5) Basophils # (Auto) 0.1 K/uL (0.0-0.1) Nucleated RBC Absolute Count (auto) 0.05 K/uL D-Dimer Quantitative (PE/DVT) 1.24 ug/ml (0-0.50) Sodium Level 141 mmol/L (137-145) Potassium Level 4.6 mmol/L (3.5-5.0) Chloride Level 106 mmol/L (98-107) Carbon Dioxide Level 26 mmol/L (22-31) Blood Urea Nitrogen 13 mg/dl (7-18) Creatinine 1.00 mg/dl (0.52-1.04) Glomerular Filtration Rate Calc 56.9 Random Glucose 167 mg/dl (75-110) Lactate 1.6 mmol/L (0.7-2.1) Calcium Level 9.3 mg/dl (8.4-10.2) Total Bilirubin 0.4 mg/dl (0.2-1.3) Aspartate Amino Transf (AST/SGOT) 12 U/L (0-35) Alanine Aminotransferase (ALT/SGPT) 24 U/L (0-56) Alkaline Phosphatase 137 U/L (0-126) Troponin I < 0.012 ng/ml B-Type Natriuretic Peptide 23 pg/ml (0-100) Total Protein 6.6 g/dl (6.3-8.2) Albumin 3.9 g/dl (3.5-5.0) Urine Color Straw Urine Clarity Clear Urine pH 6.0 pH (4.8-9.5) Urine Specific [place] 1.003 Urine Protein Negative mg/dL (NEGATIVE) Urine Glucose (UA) Negative mg/dL (NEGATIVE) Urine Ketones Negative mg/dL (NEGATIVE) Urine Blood Negative (NEGATIVE) Urine Nitrite Negative (NEGATIVE) Urine Bilirubin Negative (NEGATIVE) Urine Urobilinogen Negative mg/dL (0.2-1.9) Urine Leukocyte Esterase Negative (NEGATIVE) Urine RBC <1 /HPF (0-2/HPF) Urine WBC <1 /HPF (0-5/HPF) Urine Squamous Epithelial Cells None /LPF (</=FEW) Urine Bacteria Few /HPF (NONE-FEW) Urine Mucus None /HPF (NONE-FEW) Chemistry Test 04/25/19 18:47 04/25/19 19:20 White Blood Count 8.1 k/uL (4.5-11.0) Red Blood Count 5.72 M/uL (4.17-5.56) Hemoglobin 14.5 g/dL (12.0-16.0) Hematocrit 45.7 % (34.0-47.0) Mean Corpuscular Volume 79.8 fL (80.0-96.0) Mean Corpuscular Hemoglobin 25.3 pg (26.0-33.0) Mean Corpuscular Hemoglobin Concent 31.7 g/dL (32.0-36.0) Red Cell Distribution Width 17.9 % (11.5-14.5) Platelet Count 188 K/uL (150-450) Mean Platelet Volume 8.0 fL (7.2-11.1) Neutrophils (%) (Auto) 74.9 % (39.4-72.5) Lymphocytes (%) (Auto) 11.5 % (17.6-49.6) Monocytes (%) (Auto) 8.0 % (4.1-12.4) Eosinophils (%) (Auto) 4.9 % (0.4-6.7) Basophils (%) (Auto) 0.7 % (0.3-1.4) Nucleated RBC Relative Count (auto) 0.6 /100WBC Neutrophils # (Auto) 6.1 K/uL (2.0-7.4) Lymphocytes # (Auto) 0.9 K/uL (1.3-3.6) Monocytes # (Auto) 0.7 K/uL (0.3-1.0) Eosinophils # (Auto) 0.4 K/uL (0.0-0.5) Basophils # (Auto) 0.1 K/uL (0.0-0.1) Nucleated RBC Absolute Count (auto) 0.05 K/uL D-Dimer Quantitative (PE/DVT) 1.24 ug/ml (0-0.50) Glomerular Filtration Rate Calc 56.9 Lactate 1.6 mmol/L (0.7-2.1) Calcium Level 9.3 mg/dl (8.4-10.2) Total Bilirubin 0.4 mg/dl (0.2-1.3) Aspartate Amino Transf (AST/SGOT) 12 U/L (0-35) Alanine Aminotransferase (ALT/SGPT) 24 U/L (0-56) Alkaline Phosphatase 137 U/L (0-126) Troponin I < 0.012 ng/ml B-Type Natriuretic Peptide 23 pg/ml (0-100) Total Protein 6.6 g/dl (6.3-8.2) Albumin 3.9 g/dl (3.5-5.0) Urine Color Straw Urine Clarity Clear Urine pH 6.0 pH (4.8-9.5) Urine Specific Manson 1.003 Urine Protein Negative mg/dL (NEGATIVE) Urine Glucose (UA) Negative mg/dL (NEGATIVE) Urine Ketones Negative mg/dL (NEGATIVE) Urine Blood Negative (NEGATIVE) Urine Nitrite Negative (NEGATIVE) Urine Bilirubin Negative (NEGATIVE) Urine Urobilinogen Negative mg/dL (0.2-1.9) Urine Leukocyte Esterase Negative (NEGATIVE) Urine RBC <1 /HPF (0-2/HPF) Urine WBC <1 /HPF (0-5/HPF) Urine Squamous Epithelial Cells None /LPF (</=FEW) Urine Bacteria Few /HPF (NONE-FEW) Urine Mucus None /HPF (NONE-FEW) Coagulation Test 04/25/19 18:47 D-Dimer Quantitative (PE/DVT) 1.24 ug/ml Urinalysis Test 04/25/19 19:20 Urine Color Straw Urine Clarity Clear Urine pH 6.0 pH (4.8-9.5) Urine Specific Manson 1.003 Urine Protein Negative mg/dL (NEGATIVE) Urine Glucose (UA) Negative mg/dL (NEGATIVE) Urine Ketones Negative mg/dL (NEGATIVE) Urine Blood Negative (NEGATIVE) Urine Nitrite Negative (NEGATIVE) Urine Bilirubin Negative (NEGATIVE) Urine Urobilinogen Negative mg/dL (0.2-1.9) Urine Leukocyte Esterase Negative (NEGATIVE) Urine RBC <1 /HPF (0-2/HPF) Urine WBC <1 /HPF (0-5/HPF) Urine Squamous Epithelial Cells None /LPF (</=FEW) Urine Bacteria Few /HPF (NONE-FEW) Urine Mucus None /HPF (NONE-FEW) EKG/Imaging EKG Interpretation 12 lead EK Rhythm: normal sinus rhythm [place]: normal QRS: Low voltage QRS ST segments: normal, comparison to previous EKG dated 09/12/18, no significant change Imaging X-ray: Single view portable chest x-ray was obtained. I viewed the images myself on the PACS system. My interpretation of the images is: No infiltrate, no effusion, normal mediastinum. The radiologist interpretation had no clinically significant variation from this interpretation. Results: Ultrasound of the bilateral lower extremity venous Dopplers was obtained. The results of the study are no evidence of DVT. The study was read by the radiologist. I viewed the images myself on the PACS system. Results: CT scan of the CTA pulmonary angiogram was obtained. The results of the study are CT angiogram chest with contrast Indication: Shortness breath. Elevated d-dimer. Comparison: None available. Technique: Axial CT images are obtained through the chest after administration of 75 mL Isovue 370 IV contrast. Reformatted coronal and sagittal images were reviewed as well as coronal MIP images. One of the following dose optimization techniques was utilized in the pe rformance of this exam: automated exposure control; adjustment of the mA and/or kV according to the patient's size; or use of an iterative reconstruction technique. Specific details can be referenced in the facility's radiology CT exam operational policy. FINDINGS: No evidence of filling defect within the pulmonary vasculature to suggest pulmonary embolus. Heart is normal size. Small pericardial effusion is present with the thickness anteriorly of 5 mm. The aorta shows no aneurysm or dissection. The mediastinum and hilar regions show no enlarged lymph nodes with couple small lymph nodes. No abnormal density seen mediastinum. Lungs show mild dependent atelectasis. No consolidations, pleural effusion or pneumothorax. No discrete nodule or focal interstitial opacities. Airways are cl ear. Bony structures show no acute fractures or aggressive bony lesions. Mild degenerative change seen spine. Chest wall shows no enlarged axillary lymph nodes or masses. Left superior lobe of the liver does show a 1.3 cm cyst. The upper abdomen is otherwise unremarkable. IMPRESSION: 1. No evidence of pulmonary embolus. 2. Small pericardial effusion. Nonspecific. 3. Lungs are clear. 4. Small hepatic cyst. The study was read by the radiologist. I viewed the images myself on the PACS system. ED Course/Re-evaluation Clinical Indication for ER IV: IV Access ED Course Patient was admitted to an examination room. H&P was done. The differential diagnoses was considered. Patient complaining of shortness of breath for one m onth, productive cough. She notes bilateral lower extremity edema worse than usual. She's complaining of bilateral leg pain. The notes erythema of her lower extremities. They do feel warm to the touch. She is afebrile. Her pulse ox is 89% on room air. She does have history of COPD, but is not on O2. Patient has used inhalers in the past but does not have any currently. Patient is on spironolactone diuretic. An extensive diagnostic evaluation is undertaken. Her d-dimer is elevated, so a CTA pulmonary angiogram is performed. Her chest x-ray was unremarkable. The CTA pulmonary and a gram was negative for pulmonary embolism. Venous Dopplers of her lower extremities secondary to pain and increased swelling show no evidence of DVT. Patient be discharged home on Keflex for cellulitis of her lower extremities. And Lasix 20 g per day. Patient advised to continue not all of her medications and follow-up with primary care if unimproved in 3-5 days. Decision to Disposition Date: Apr 25, 2019 Decision to Disposition Time: 21:32 Depart Departure Latest Vital Signs Vital Signs Date Time Temp Pulse Resp B/P (MAP) Pulse Ox O2 Delivery O2 Flow Rate FiO2 04/25/19 21:30 68 16 111/64 (80) 04/25/19 21:15 86 7/7/19 19:04 2.0 04/25/19 18:52 Nasal Cannula 04/25/19 18:23 97.8 Core Temperature (Celsius): 37.50 Impression: Primary Impression: Lower extremity edema Additional Impressions: Lower extremity pain Bilateral lower leg cellulitis Condition: Improved Disposition: HOME OR SELF-CARE Referrals: SHERON PEARL APRN [employer] TECHNICIAN-C (PCP) New Scripts Furosemide (LASIX) 20 Mg Tablet 1 TAB PO DAILY for leg swelling, #10 TAB Prov: ALEXA FRANKEL DO 04/25/19 Cephalexin Monohydrate (CEPHALEXIN) 500 Mg Cap 500 MG PO TID for infection, #20 CAP TAKE 1 CAPSULE BY MOUTH EVERY SIX HOURS Prov: ALEXA FRANKEL DO 04/25/19 Patient Instructions: Cellulitis (ED), Edema (ED) Additional Instructions: Take medications as prescribed Follow-up with your primary care doctor as planned in one week Problem Qualifiers Additional Impressions: Lower extremity pain Laterality: bilateral Qualified Codes: M79.604 - Pain in right leg; M79.605 - Pain in left leg ALEXA FRANKEL DO Apr 25, 2019 18:31
[2019-04-25] MEDS ORDERED: ALBUTEROL 2.5 MG/3 ML NEB NEB ONE (18:45)
--- NOTE | 2019-04-25 19:08 | RADIOLOGY IMAGING REPORT ---
[place]AC[place] [facility] [place] NAME: Lamonte Erickson : 1960 MR: [id number] V: [id number] EXAM DATE: ORDERING PHYSICIAN: ALEXA FRANKEL TECHNOLOGIST: Location: [facility] Patient: Lamonte Erickson : 1960 Visit/Account:[id number] Date of Sevice: 04/25/2019 CHEST SINGLE AP portable erect 1850 hours COMPARISON: 01/31/2019. HISTORY: dyspnea FINDINGS: CARDIAC/VASC: Heart size is probably upper normal and stable when accounting for portable techniqu e today versus nonportable technique on the prior. Vasculature all unremarkable. MEDIASTINUM: No visible mass or adenopathy. LUNGS/PLEURA: No pneumothorax. Mild diffuse bronchial wall thickening without focal airspace disease or definite septal lines. No costophrenic angle blunting to suggest a large effusion. BONES: No fracture or visible bony lesion. OTHER:Negative. IMPRESSION: Mild diffuse bronchial wall thickening suggestive of viral infection. Heart size is probably upper no rmal when accounting for portable technique. Report Dictated By: Speedy Schofield at 04/25/2019 7:01 PM Report E-Signed By: Speedy Schofield at 04/25/2019 7:03 PM WSN:[id number]
[2019-04-25 19:13] LABS: PLATELET COUNT, AUTOMATED 188 K/uL (150-450)
[2019-04-25] MEDS ORDERED: NS(*) 0.9% 50 ML BAG 50 ML ONE (20:11)
[2019-04-25] MEDS ORDERED: IOPAMIDOL 76% 100 ML INFUS BTL 100 ML ONE (20:11)
--- NOTE | 2019-04-25 20:42 | RADIOLOGY IMAGING REPORT ---
FACILITY: [facility] PATIENT NAME: Lamonte Erickson : 1960 MR: [id number] V: [id number] EXAM DATE: ORDERING PHYSICIAN: ALEXA FRANKEL TECHNOLOGIST: Location: [facility] Patient: Lamonte Erickson : 1960 Visit/Account:[id number] Date of Sevice: 04/25/2019 US VENOGRAM EXTREMITY, BILATERAL HISTORY: leg swelling pain r/o DVT COMPARISON: None. FINDINGS: Grayscale, duplex and color Doppler interrogation of the right and left lower extremity deep veins, f rom common femoral vein to proximal calf was completed. Compression was performed where it was possib le. RIGHT LOWER EXTREMITY: Common femoral vein - Negative. Femoral vein - Negative. Deep femoral vein - Negative. Popliteal vein - Negative. Visualized deep calf veins - Negative. Popliteal fossa: Popliteal and lower leg soft tissue edema is noted. LEFT LOWER EXTREMITY: Common femoral vein - Negative. Femoral vein - Negative. Deep femoral vein - Negative. Popliteal vein - Negative. Visualized deep calf veins - Negative. Popliteal fossa: Popliteal and lower leg soft tissue edema is noted. IMPRESSION: No evidence of deep venous thrombosis in the visualized veins of the right or left lower extremity. P opliteal and lower leg soft tissue edema bilaterally. Report Dictated By: Speedy Schofield at 04/25/2019 8:34 PM Report E-Signed By: Speedy Schofield at 04/25/2019 8:35 PM WSN:[id number]
--- NOTE | 2019-04-25 21:24 | RADIOLOGY IMAGING REPORT ---
FACILITY: [facility] - [place] PATIENT NAME: Lamonte Erickson : 1960 MR: [id number] V: [id number] EXAM DATE: ORDERING PHYSICIAN: ALEXA FRANKEL TECHNOLOGIST: Location: [facility] Patient: Lamonte Erickson : 1960 Visit/Account:[id number] Date of Sevice: 04/25/2019 CT angiogram chest with contrast Indication: Shortness breath. Elevated d-dimer. Comparison: None available. Technique: Axial CT images are obtained through the chest after administration of 75 mL Isovue 370 IV contrast. Reformatted coronal and sagittal images were reviewed as well as coronal MIP images. One of the following dose optimization techniques was utilized in the performance of this exam: auto mated exposure control; adjustment of the mA and/or kV according to the patient's size; or use of an iterative reconstruction technique. Specific details can be referenced in the facility's radiology C T exam operational policy. FINDINGS: No evidence of filling defect within the pulmonary vasculature to suggest pulmonary embolus. Heart is normal size. Small pericardial effusion is present with the thickness anteriorly of 5 mm. Th e aorta shows no aneurysm or dissection. The mediastinum and hilar regions show no enlarged lymph nod es with couple small lymph nodes. No abnormal density seen mediastinum. Lungs show mild dependent atelectasis. No consolidations, pleural effusion or pneumothorax. No discre te nodule or focal interstitial opacities. Airways are clear. Bony structures show no acute fractures or aggressive bony lesions. Mild degenerative change seen spi ne. Chest wall shows no enlarged axillary lymph nodes or masses. Left superior lobe of the liver does show a 1.3 cm cyst. The upper abdomen is otherwise unremarkable. IMPRESSION: 1. No evidence of pulmonary embolus. 2. Small pericardial effusion. Nonspecific. 3. Lungs are clear. 4. Small hepatic cyst. Report Dictated By: Christopher Giron at 04/25/2019 9:06 PM Report E-Signed By: Christopher Giron at 04/25/2019 9:17 PM WSN:[id number]
[2019-04-25 21:30] VITALS: BP 111/64
[2019-04-25] MEDS ORDERED: CEPHALEXIN MONO 500 MG CAP PO ONE (21:35)
[2019-04-25] MEDS ORDERED: FUROSEMIDE 40 MG TAB PO ONE (21:35)
[2019-04-25] MEDS ORDERED: CEPH500C24 PO (21:37)
[2019-04-25] MEDS ORDERED: FURO20TA19 PO (21:37)
--- NOTE | 2019-04-26 02:12 | EKG ---
FACILITY: [facility] PATIENT NAME: TUSHAR MILLER : [id number] MR: [id number] V: [id number] EXAM DATE: ORDERING PHYSICIAN: ALEXA FRANKEL TECHNOLOGIST: CHRISTOPH Hernández Reason : DYSPNEA Blood Pressure : / mmHG Vent. Rate : 079 BPM Atrial Rate : 079 BPM P-R Int : 168 ms QRS Dur : 106 ms QT Int : 374 ms P-R-T Axes : 068 -22 040 degrees QTc Int : 428 ms Normal sinus rhythm Poor R wave progression anteriorly Nonspecific T wave changes Borderline ECG When compared with ECG of 12-SEP-2018 17:44, OR interval has decreased T wave inversion now evident in Anterior leads Confirmed by LINK BAJWA ([id number]) on 04/26/2019 5:49:33 AM Referred By: Confirmed By:LINK BAJWA
[2019-04-28] MEDS ORDERED: OMEP40CA48 PO (13:40)
[2019-04-29] MEDS ORDERED: IBUP600T22 PO (13:12)
[2019-04-29] MEDS ORDERED: OMEP40CA48 PO (13:12)
== END 2019-04-25 21:44 | disposition home or self-care (01) ==
LOC: ER 18:25
DX: L03.116 Cellulitis of left lower limb (principal); L03.115 Cellulitis of right lower limb; R60.0 Localized edema; E03.9 Hypothyroidism, unspecified; E11.9 Type 2 diabetes mellitus without complications; E78.5 Hyperlipidemia, unspecified; I10 Essential (primary) hypertension; K21.9 Gastro-esophageal reflux disease without esophagitis; F20.9 Schizophrenia, unspecified; F32.9 Major depressive disorder, single episode, unspecified; F17.210 Nicotine dependence, cigarettes, uncomplicated; Z79.84 Long term (current) use of oral hypoglycemic drugs; Z79.899 Other long term (current) drug therapy
CPT/HCPCS: 71045; 71275; 81001; 83605; 83880; 84484; 85025; 85379; 87040; 93005; 93970; 94640; 96374; 99285; A9270; J0131; J7050; J7613; Q9967; 82040; 82247; 82310; 82374; 82435; 82565; 82947; 84075; 84132; 84155; 84295; 84450; 84460; 84520

== ENCOUNTER → 2019-04-25 | Outpatient (CLI) | payer MEDICARE, MEDICAID ==
[~2019-04-25] MED LIST changes: +FURO20TA19 PO; -IOPAMIDOL 76% 150 ML INFUS BTL 150 ML ONE; -OMEP-125 PO; +OMEP-126 PO; -OMEP10CA40 PO; +OMEP10CA41 PO; +[UNRECOGNIZED DRUG - CODE] MC; +[UNRECOGNIZED DRUG - SUPPLY]
== END ==
LOC: AMB 18:00
PROVIDERS: ATTEND Nurse Practitioner
DX: R60.0 Localized edema (principal); R09.02 Hypoxemia; M79.605 Pain in left leg; M79.604 Pain in right leg
CPT/HCPCS: A0425; A0429

== ENCOUNTER 2019-05-24 03:53 | Inpatient (IN) | payer MEDICARE, MEDICAID ==
--- NOTE | 2019-05-24 03:52 | ER Report ---
History and Physical Time Seen By MD: 03:48 (TERRI ALONZO MD) Time Seen By MD: 07:19 (LENORE PORRAS DO) HPI/ROS CHIEF COMPLAINT: fever, hypoxia, weakness HISTORY OF PRESENT ILLNESS: This is a 58 year old female. She called EMS, sounds like she slid out of her chair and was too weak to get up. EMS arrived and found her weak with a low oxygen saturation of 72%. Also with a fever. She does not know how long she was on the ground for. She has chronic back pain, but cannot tell me if it is worse. She is having a hard time talking to me, says she cannot form sentences. She says she has not felt well for a few weeks. She has been to the ER frequently in the past and we know her well, she is not acting liker herself. Denies chest pain. She is short of breath. Has had a mild cough. No nausea or vomiting. REVIEW OF SYSTEMS: She is unable to answer more than simple questions as noted, otherwise unknown. (TERRI ALONZO MD) HPI/ROS Please see Dr. Alonzo note (LENORE PORRAS DO) Allergies: Coded Allergies: ketorolac (Verified Allergy, Intermediate, MADE SYMTOMS WORSE, 05/24/19) NSAIDS (Non-Steroidal Anti-Inflamma (Verified Allergy, Mild, Vomiting, 05/24/19) butorphanol (Verified Allergy, Mild, facial burning, 05/24/19) morphine (Verified Allergy, Unknown, itch , 05/24/19) phenazopyridine HCl (Verified Allergy, Unknown, 05/24/19) sumatriptan succinate (Verified Allergy, Unknown, 05/24/19) Home Meds Active Scripts Sulfamethoxazole/Trimet 800-160 Mg Tab (BACTRIM DS TABLET) 1 Each Tablet, 1 TAB PO Q12H for 10 Days, #20 TAB Prov:DEBRA LOPEZ PIT FURNACE OPERATOR 05/27/19 Lancets (ACCU-CHEK FASTCLIX) 1 Each Each, EACH MC DAILY, #100 3 Refills Use to test blood sugar daily Prov:SHERON PEARL APRN PIT FURNACE OPERATOR-C 04/30/19 Ibuprofen (IBUPROFEN) 600 Mg Tablet, 1 TAB PO BID PRN for PAIN, #30 TAB 0 Refills Prov:SHERON PEARL APRN-C 04/29/19 Furosemide (LASIX) 20 Mg Tablet, 1 TAB PO DAILY for leg swelling, #10 TAB Prov:ALEXA FRANKEL 04/25/19 Oxybutynin Chloride (OXYBUTYNIN CHLORIDE) 5 Mg Tablet, 1 TAB PO BID, #180 TAB 0 Refills Prov:SHERON PEARL APRN-C 03/30/19 Levothyroxine Sodium (LEVOTHYROXINE SODIUM) 25 Mcg Tablet, 1 TAB PO QDAY, #90 TAB 0 Refills Prov:SHERON PEARL APRN-C 03/11/19 Gabapentin (GABAPENTIN) 600 Mg Tablet, 1 TAB PO BID, #180 TAB 1 Refill Prov:SHERON PEARL APRN-C 02/26/19 Metformin Hcl (METFORMIN HCL) 500 Mg Tablet, 1 TAB PO BID, #180 TAB 1 Refill Prov:SHERON PEARL APRN-C 11/27/18 Quetiapine Fumarate (SEROQUEL) 200 Mg Tablet, 1 TAB PO QHS, #5 TAB 0 Refills Prov:SHERON PEARL APRN-C 08/14/18 NYSTATIN 440154 UNT/ML Topical Cream (NYSTATIN 302435 UNT/ML Topical Cream) 15 Gm Cream..g., 1 AN TP BID, #60 GM 2 Refills Apply to rash under breasts until resolved Prov:SHERON PEARL APRN-C 06/16/18 Insulin Detemir 100 UN/ML PEN (Levemir Flextouch) 100 Unit/1 Ml Insuln.pen, 40 UNITS SUBQ DAILY, #1 BOX 10 Refills Prov:SHERON PEARL APRN-C 11/17/17 Duloxetine Hcl (CYMBALTA) 60 Mg Capsule.dr, 1 CAP PO QDAY, #90 CAP 1 Refill Prov:SHERON PEARL APRN-C 10/10/17 Blood Sugar Diagnostic (BLOOD GLUCOSE TEST STRIP) 1 Each Strip, 1 STRIP MC DAILY, #30 BOT 4 Refills Prov:SHERON PEARL APRN-C 06/02/17 Reported Medications Omeprazole (OMEPRAZOLE) 40 Mg Capsule.dr, 1 CAP PO BID, CAP take 30 minutes before eating 05/24/19 Lurasidone Hcl (LATUDA) 60 Mg Tablet, 1 TAB PO DAILY 09/12/18 Lamotrigine (LAMOTRIGINE) 100 Mg Tablet, 1 TAB PO QAM 10/10/16 Topiramate (TOPIRAMATE) 100 Mg Tablet, 1 TAB PO QAM for migraines 10/10/16 Discontinued Reported Medications Blood-Glucose Meter (ACCU-CHEK PABLO PLUS) 1 Each Each, EACH , #1 05/24/19 Discontinued Scripts Cephalexin Monohydrate (CEPHALEXIN) 500 Mg Cap, 500 MG PO TID for infection, #20 CAP TAKE 1 CAPSULE BY MOUTH EVERY SIX HOURS Prov:ALEXA FRANKEL DO 04/25/19 Spironolactone (SPIRONOLACTONE) 25 Mg Tablet, 1 TAB PO DAILY, #90 TAB 1 Refill Prov:SHERON PEARL APRNP-C 11/26/18 [Repair Lift Chair] No Conflict Check Prov:SHERON PEARL APRNP-C 05/04/19 Omeprazole (OMEPRAZOLE) 40 Mg Capsule., 40 MG PO BID, #180 CAP 2 Refills Prov:SHERON PEARL APRNP-C 04/29/19 [Incontinence Supplie] No Conflict Check Prov:SHERON PEARL APRNP-C 11/06/18 [Glucometer] No Conflict Check Prov:SHERON PEARL APRN PIT FURNACE OPERATOR-C 11/06/18 Reviewed Nurses Notes: Yes (TERRI ALONZO MD) Hx Smoking: Yes (Since age 18, 0.5-1 ppd) Smoking Status: Current: Every Day Smoker Exposure to Second Hand Smoke?: Yes Hx Substance Use Disorder: No (age 18 ) Hx Alcohol Use: Yes (once 2-3 years ) (TERRI ALONZO MD) Constitutional Vital Sign - Last 24 Hours 05/24/19 05/24/19 05/24/19 05/24/19 03:53 03:55 03:57 03:58 Temp 101.0 Pulse ??? 129 93 Resp 26 B/P (MAP) 114/65 114/65 (81) Pulse Ox 90 87 O2 Delivery Nasal Cannula 8/5/05/24/19 05/24/19 05/24/19 04:00 04:08 04:10 04:13 Pulse ??? 108 Resp 27 25 B/P (MAP) 114/40 (64) Pulse Ox 97 92 O2 Flow Rate 4.0 05/24/19 05/24/19 05/24/19 05/24/19 04:16 04:16 04:18 04:23 Pulse 118 105 52 Resp 22 22 25 Pulse Ox 94 92 91 O2 Delivery Nasal Cannula O2 Flow Rate 4.0 05/24/19 05/24/19 05/24/19 05/24/19 04:28 04:30 04:38 04:43 Pulse 53 88 94 Resp 25 27 23 B/P (MAP) 92/71 (78) 97/65 (76) Pulse Ox 91 90 89 05/24/19 05/24/19 05/24/19 05/24/19 04:48 05:00 05:08 05:18 Pulse 102 102 100 Resp 24 22 20 B/P (MAP) 114/72 (86) Pulse Ox 90 90 89 05/24/19 05/24/19 05/24/19 05/24/19 05:28 05:30 05:38 05:48 Pulse 101 102 100 Resp 23 13 22 B/P (MAP) 112/78 (89) Pulse Ox 90 90 90 05/24/19 05/24/19 05/24/19 05/24/19 05:58 06:00 06:08 06:18 Pulse 101 194 94 Resp 21 15 B/P (MAP) 132/70 (90) Pulse Ox 92 96 Intake and Output 05/23/19 05/23/19 05/24/19 15:03 23:03 07:03 Intake Total 1000 ml Balance 1000 ml (LENORE PORRAS S DO) Physical Exam General Appearance: The patient is alert but having a difficult time with thought processes and communicating. She is weak, but can sit up by herself. Eyes: Pupils are equal, round. Reactive to light. No pallor, injection or icterus. Extraocular movements are intact. ENT: Mucous membranes are moist. Normal oral mucosa. Posterior oropharynx is nor mal. Normal tympanic membranes and canals. Neck: Supple and non tender. No lymphadenopathy. Respiratory: Lungs with wheezing and rhonchi. Cardiovascular: Regular rate and rhythm. No murmurs, gallops or rubs. Normal capillary refill. Gastrointestinal: Abdomen is soft and non tender. Nondistended. Normal active bowel sounds. Neurological: Alert and oriented x3. Generalized weakness present, but no focal weakness. Skin: Warm and dry. Musculoskeletal: Extremities are nontender. Pain with palpation throughout low back. DIFFERENTIAL DIAGNOSIS: After history and physical exam, differential diagnosis was considered for a patient with fever, weakness, hypoxia, and some confusion, concerning for infectious and metabolic etiologies. (TERRI ALONZO MD) Physical Exam Please see Dr. Alonzo note (LENORE PORRAS DO) Medical Decision Making Data Points Result Diagram: 05/27/19 0728 05/27/19 0505 Laboratory Hematology Test 05/24/19 03:46 White Blood Count 9.7 k/uL (4.5-11.0) Red Blood Count 5.91 M/uL (4.17-5.56) H Hemoglobin 14.9 g/dL (12.0-16.0) Hematocrit 46.5 % (34.0-47.0) Mean Corpuscular Volume 78.6 fL (80.0-96.0) L Mean Corpuscular Hemoglobin 25.2 pg (26.0-33.0) L Mean Corpuscular Hemoglobin Concent 32.0 g/dL (32.0-36.0) Red Cell Distribution Width 20.1 % (11.5-14.5) H Platelet Count 125 K/uL (150-450) L Mean Platelet Volume 9.0 fL (7.2-11.1) Neutrophils (%) (Auto) 86.5 % (39.4-72.5) H Lymphocytes (%) (Auto) 1.7 % (17.6-49.6) L Monocytes (%) (Auto) 11.2 % (4.1-12.4) Eosinophils (%) (Auto) 0.2 % (0.4-6.7) L Basophils (%) (Auto) 0.4 % (0.3-1.4) Nucleated RBC Relative Count (auto) 0.0 /100WBC Neutrophils # (Auto) 8.4 K/uL (2.0-7.4) H Lymphocytes # (Auto) 0.2 K/uL (1.3-3.6) L Monocytes # (Auto) 1.1 K/uL (0.3-1.0) H Eosinophils # (Auto) 0.0 K/uL (0.0-0.5) Basophils # (Auto) 0.0 K/uL (0.0-0.1) Nucleated RBC Absolute Count (auto) 0.00 K/uL Peripheral Blood Smear Yes Y/N Chemistry Test 05/24/19 03:46 Sodium Level 135 mmol/L (137-145) Potassium Level 3.9 mmol/L (3.5-5.0) Chloride Level 102 mmol/L (98-107) Carbon Dioxide Level 19 mmol/L (22-31) Blood Urea Nitrogen 22 mg/dl (7-18) Creatinine 1.60 mg/dl (0.52-1.04) Glomerular Filtration Rate Calc 33.1 Random Glucose 225 mg/dl (75-110) Lactate 1.2 mmol/L (0.7-2.1) Calcium Level 8.3 mg/dl (8.4-10.2) Total Bilirubin 1.1 mg/dl (0.2-1.3) Aspartate Amino Transf (AST/SGOT) 19 U/L (0-35) Alanine Aminotransferase (ALT/SGPT) 25 U/L (0-56) Alkaline Phosphatase 108 U/L (0-126) Total Creatine Kinase 107 U/L (30-135) Total Protein 6.9 g/dl (6.3-8.2) Albumin 3.8 g/dl (3.5-5.0) (LENORE PORRAS [facility]) ED Course/Re-evaluation ED Course I assumed patient care from Dr. Alonzo at shift change at 7:00. Initial attempts to obtain a clean catch urine were unsuccessful also a catheterized urine sample was obtained and sent. Due to the patient's clinical picture, ceftriaxone was administered cross cover for urinary tract infection versus pulmonary infection. Patient's vital signs improved with subsequent normal saline boluses. Patient was hemodynamically stable at time of admission. I discussed the patient with Dr. Trevino who accepted the patient to the hospitalist service. Decision to Disposition Date: May 24, 2019 Decision to Disposition Time: 08:33 (LENORE PORRAS [facility]) Depart Departure Latest Vital Signs Vital Signs Date Time Temp Pulse Resp B/P (MAP) Pulse Ox O2 Delivery O2 Flow Rate FiO2 05/24/19 06:18 94 05/24/19 06:08 15 96 05/24/19 06:00 132/70 (90) 05/24/19 04:16 Nasal Cannula 4.0 05/24/19 03:55 101.0 (LENORE PORRAS DO) Core Temperature (Celsius): 37.50 (TERRI ALONZO MD) Impression: Primary Impression: Sepsis Additional Impression: Weakness Condition: Improved Disposition: Admitted from ER Referrals: SHERON PEARL APRNP-C (PCP) New Scripts Sulfamethoxazole/Trimet 800-160 Mg Tab (BACTRIM DS TABLET) 1 Each Tablet 1 TAB PO Q12H for 10 Days, #20 TAB Prov: DEBRA LOPEZ 05/27/19 Problem Qualifiers TERRI ALONZO MD May 24, 2019 03:52 LENORE PORRAS DO May 24, 2019 07:24
[~2019-05-24 03:53] MED LIST changes: -BLOO-1492 MC
[2019-05-24] MEDS ORDERED: ALBUTEROL/IPRATROPIUM 3 ML NEB NEB ONE (04:00)
[2019-05-24 04:20] LABS: PLATELET COUNT, AUTOMATED 125 K/uL (150-450)
[2019-05-24] MEDS ORDERED: NS(*) 0.9% 1000 ML BAG 1,000 ML IV ONE ×2 (04:20→07:05)
--- NOTE | 2019-05-24 04:41 | RADIOLOGY IMAGING REPORT ---
FACILITY: [facility] - [place] PATIENT NAME: Lamonte Erickson : 1960 MR: [id number] V: [id number] EXAM DATE: ORDERING PHYSICIAN: TERRI MONTERROSO TECHNOLOGIST: Location: [facility] Patient: Lamonte Erickson : 1960 Visit/Account:[id number] Date of Sevice: 05/24/2019 PORTABLE CHEST: Indication: Fever. Technique: A single frontal film was obtained. Comparison: 04/25/2019 Skeletal and soft tissue structures: Intact and unremarkable. Heart and mediastinum: There is stable mild cardiomegaly. Lung barrios: Fairly well expanded. There are chronic increased interstitial markings. No focal parenc hymal consolidation is clearly identified. Pleural spaces: Unremarkable. Impression: No acute process is clearly identified. Report Dictated By: Josue Gonzalez MD at 05/24/2019 4:31 AM Report E-Signed By: Josue Gonzalez MD at 05/24/2019 4:33 AM [id number]
[2019-05-24] MEDS ORDERED: NS(*) 0.9% 1000 ML BAG 1,000 ML IR ONE (07:00)
[2019-05-24] MEDS ORDERED: cefTRIAXone 1 GM VIAL IVP ONE (08:30)
[2019-05-24 09:30] VITALS: BP 151/82
[2019-05-24] MEDS ORDERED: LURASIDONE 40 MG TAB PO SCH (11:15)
[2019-05-24] MEDS ORDERED: INFLUENZA VIRUS VAC 0.5ML SYR IM ONLY ONE (11:15)
[2019-05-24] MEDS ORDERED: FLUSH 10 ML SYR IVP PRN (11:15)
[2019-05-24] MEDS ORDERED: DULoxetine HCL 30 MG CAPCR PO SCH (11:15)
[2019-05-24] MEDS: lamoTRIgine 100 MG TAB PO SCH ×2 (11:15→12:22)
[2019-05-24] MEDS: NS(*) 0.9% 1000 ML BAG 1,000 ML IV PRN (12:16)
[2019-05-24] MEDS: IBUPROFEN 600 MG TAB PO PRN (12:16)
[2019-05-24] MEDS: TOPIRAMATE 100 MG TAB PO SCH (12:18)
[2019-05-24] MEDS: GABAPENTIN 300 MG CAP PO SCH ×2 (12:18→20:41)
[2019-05-24] MEDS: LEVOTHYROXINE SOD 0.025 MG TAB PO SCH (12:22)
--- NOTE | 2019-05-24 12:54 | History & Physical ---
History of Present Illness Chief Complaint Fever, Weakness. History of Present Illness 58y/o female who presents with fever and weakness. She states she has been feeling this way for 2 weeks. She slid out of her chair last night and was unable to get herself up off the floor so she called EMS. She complains of some burning with urination starting yesterday. History Problems: (1) Type II diabetes mellitus, uncontrolled Status: Chronic (2) Bipolar disorder Status: Chronic (3) Hypothyroid Onset Date: 01/04/2015 Status: Chronic (4) Hypertension Status: Acute (5) Depression Status: Acute Home Meds Active Scripts [Repair Lift Chair] No Conflict Check Prov:SHERON PEARL APRN-C 05/04/19 Lancets (ACCU-CHEK FASTCLIX) 1 Each Each, EACH MC DAILY, #100 3 Refills Use to test blood sugar daily Prov:SHERON PEARL APRN-C 04/30/19 Omeprazole (OMEPRAZOLE) 40 Mg Capsule.dr, 40 MG PO BID, #180 CAP 2 Refills Prov:SHERON PEARL APRN-C 04/29/19 Ibuprofen (IBUPROFEN) 600 Mg Tablet, 1 TAB PO BID PRN for PAIN, #30 TAB 0 Ref ills Prov:SHERON PEARL APRN-C 04/29/19 Furosemide (LASIX) 20 Mg Tablet, 1 TAB PO DAILY for leg swelling, #10 TAB Prov:ALEXA FRANKEL DO 04/25/19 Cephalexin Monohydrate (CEPHALEXIN) 500 Mg Cap, 500 MG PO TID for infection, #20 CAP TAKE 1 CAPSULE BY MOUTH EVERY SIX HOURS Prov:ALEXA FRANKEL DO 04/25/19 Oxybutynin Chloride (OXYBUTYNIN CHLORIDE) 5 Mg Tablet, 1 TAB PO BID, #180 TAB 0 Refills Prov:SHERON PEARL APRN-C 03/30/19 Levothyroxine Sodium (LEVOTHYROXINE SODIUM) 25 Mcg Tablet, 1 TAB PO QDAY, #90 TAB 0 Refills Prov:SHERON PEARL APRNP-C 03/11/19 Gabapentin (GABAPENTIN) 600 Mg Tablet, 1 TAB PO BID, #180 TAB 1 Refill Prov:SHERON PEARL APRN-C 02/26/19 Metformin Hcl (METFORMIN HCL) 500 Mg Tablet, 1 TAB PO BID, #180 TAB 1 Refill Prov:ISAIASEDSHERON TAMIKO TEST ENGINEERING INTERN-C 11/27/18 Spironolactone (SPIRONOLACTONE) 25 Mg Tablet, 1 TAB PO DAILY, #90 TAB 1 Refill Prov:SHERON PEARL APRNLuis AntonioJoanne 11/26/18 [Incontinence Supplie] No Conflict Check Prov:SHERON PEARL APRNLuis AntonioC 11/06/18 [Glucometer] No Conflict Check Prov:SHERON PEARL APRNP-C 11/06/18 Quetiapine Fumarate (SEROQUEL) 200 Mg Tablet, 1 TAB PO QHS, #5 TAB 0 Refills Prov:SHERON PEARL APRN TEST ENGINEERING INTERN-C 08/14/18 NYSTATIN [id number] UNT/ML Topical Cream (NYSTATIN 621637 UNT/ML Topical Cream) 15 Gm Cream..g., 1 AN TP BID, #60 GM 2 Refills Apply to rash under breasts until resolved Prov:SHERON PEARL APRNP-C 06/16/18 Insulin Detemir 100 UN/ML PEN (Levemir Flextouch) 100 Unit/1 Ml Insuln.pen, 40 UNITS SUBQ DAILY, #1 BOX 10 Refills Prov:SHERON PEARL APRN-C 11/17/17 Duloxetine Hcl (CYMBALTA) 60 Mg Capsule.dr, 1 CAP PO QDAY, #90 CAP 1 Refill Prov:SHERON PEARL APRN TEST ENGINEERING INTERNLuis Antonio 10/10/17 Blood Sugar Diagnostic (BLOOD GLUCOSE TEST STRIP) 1 Each Strip, 1 STRIP CARMELO HARRY, #30 BOT 4 Refills Prov:SHERON PEARL APRN TEST ENGINEERING INTERN-C 06/02/17 Reported Medications Lurasidone Hcl (LATUDA) 60 Mg Tablet, 1 TAB PO DAILY 09/12/18 Lamotrigine (LAMOTRIGINE) 100 Mg Tablet, 1 TAB PO DAILY 10/10/16 Topiramate (TOPIRAMATE) 100 Mg Tablet, 1 TAB PO DAILY for migraines 10/10/16 Allergies: Coded Allergies: ketorolac (Verified Allergy, Intermediate, MADE SYMTOMS WORSE, 05/24/19) NSAIDS (Non-Steroidal Anti-Inflamma (Verified Allergy, Mild, Vomiting, 05/24/19) butorphanol (Verified Allergy, Mild, facial burning, 05/24/19) morphine (Verified Allergy, Unknown, itch , 05/24/19) phenazopyridine HCl (Verified Allergy, Unknown, 05/24/19) sumatriptan succinate (Verified Allergy, Unknown, 05/24/19) Patient History: FH: depression MOTHER, , Age:60 years and older FH: diabetes mellitus MOTHER, , Age:60 years and older FH: peripheral neuropathy MOTHER, , Age:60 years and older Hx Smoking: Yes Smoking Status: Current: Every Day Smoker Exposure to Second Hand Smoke?: Yes Caffeine Intake: Coffee Caffeine/Cups Per Day: 5-7 Hx Alcohol Use: Yes (once 2-3 years ) Hx Substance Use Disorder: No (age 18 ) Social Drug Use: Former Social Drugs: Marijuana, LSD Amount Of Social Drug/s Used: experimented years ago Review of Systems All Systems Reviewed/Normal: Yes, Except as Noted Constitutional: Fever Neurological: Weakness Genitourinary: Dysuria Exam Vital Signs Vital Signs Date Time Temp Pulse Resp B/P (MAP) Pulse Ox O2 Delivery O2 Flow Rate FiO2 05/24/19 10:51 100.1 05/24/19 10:46 121 32 67 High-Flow Nasal Cannula 7.0 General Appearance: Alert, Awake Cardiovascular: Regular Rate and Rhythm GI: Abd Soft and Non-Tender Psych: Alert & Oriented X3 Medical Decision Making Data Points Result Diagram: 05/24/19 0346 05/24/19 0346 Assessment and Plan Problems: (1) Sepsis Status: Acute Assessment & Plan: Secondary to pyelonephritis. Fluid resuscitation started in ED. Will continue with IV fluids. Rocephin started in ED. Will continue Rocephin and adjust antibiotic treatment pending culture results. She has been febrile in ED and had low grade fever on admission to floor, will continue her typical Motrin use. (2) UTI (urinary tract infection) Assessment & Plan: UA positive for Nitrites, Moderate Leuk. Est, and Moderate bacteria. On IV Rocephin and IV fluids. Will consider adjusting IV ABX pending urine culture results. (3) Acute renal impairment Assessment & Plan: Creat elevated. Continuing IV fluids @ 150cc/hr. She received 3L IVF in ED. Will continue to monitor. (4) DM (diabetes mellitus) Status: Acute Assessment & Plan: Chronic treatment with Levemir and Metformin are on Hold. Will monitor her blood sugar AC/HS and cover her with SSI level 2. (5) Hypothyroid Onset Date: 01/04/2015 Status: Chronic Assessment & Plan: Continue chronic treatment with Levothyroxine. (6) Hypertension Status: Acute Assessment & Plan: Chronic treatment with spironolactone on hold. She has been hypotensive in ED. Will continue to monitor and restart as needed. (7) Bipolar disorder Status: Chronic Assessment & Plan: Will continue chronic treatment with Lamictal and Latuda. (8) Depression Status: Acute Assessment & Plan: Will continue chronic treatment with Cymbalta (9) Migraine Status: Acute Assessment & Plan: Will continue chronic treatment with Topiramate. (10) GERD (gastroesophageal reflux disease) Status: Chronic Assessment & Plan: Chronic treatment with Omeprazole. Will manage with Protonix. Venous Thromboembolism Antithrombotics Is Pt On Any Antithrombotics?: No Exam Sepsis Risk: Severe Sepsis Risk TORRES ALMARAZ May 24, 2019 18:54
--- NOTE | 2019-05-24 13:50 | NUR ---
Physical Therapy Impression PT/OT eval completed together for pt safety. Pt tolerated bed mobility with Min assist and sit to/from stand with CGA using FWW. Pt ambulated to/from BR with shuffling gait pattern and good tolerance for distance. Close follow with commode initially provided, at pt has historically been fairly impulsive when a sitting rest break is required. Recommend W/C follow for distance ambulation in the future. Physical Therapy Goals 1. Pt to be Mod indep for bed mobility and transfer to sit at EOB with head of bed raised, as pt typically sleeps in recliner. 2. Pt to be Mod indep/SBA for sit to/from stand 3. Pt to ambulate x 100' with least restrictive device and SBA/Mod indep Patient's Goals
--- NOTE | 2019-05-24 15:05 | NUR ---
Occupational Therapy Impression Min A supine to sit. CGA ambulation to/from toilet with RW. Cues to manage RW appropriately. CGA sit<>stand from toilet. Max A una-care for thoroughness. SpO2 >86% on 5L. Recommend HomeHealth upon discharge home. Occupational Therapy Goals 1) Pt will be SBA UB/LB dressing. 2) Pt will be SBA toilet task. Patient's Goal
[2019-05-24] MEDS ORDERED: BLOO-1492 MC (16:25)
[2019-05-24] MEDS ORDERED: OMEP40CA48 PO (16:31)
[2019-05-24] MEDS: LURASIDONE 40 MG TAB PO SCH (17:03)
[2019-05-24] MEDS: INSULIN HUM LISPRO 100 UN/ML 3 ML VIAL SUBQ PRN ×2 (17:05→20:43)
[2019-05-24 19:51] VITALS: BP 123/78
--- NOTE | 2019-05-24 19:56 | Antimicrobial Stewardship ---
Antimicrobial Stewardship Empiricly appropriate: Yes (On Rocephin for UTI) Approriate Cultures done: Yes (Blood culture shows NGTD and urine culture in process) Renal/Hepatic dosing: Yes Reviewed for Drug Interaction: Yes Monitored for Toxicities: Yes IV to PO Opportunity: No (Still febrile) Determine cumulative duration: 3-7 days EMMA PEDRAZA May 24, 2019 19:55
[2019-05-24] MEDS: QUEtiapine FUM 100 MG TAB PO SCH (20:41)
[2019-05-24] MEDS: DULoxetine HCL 30 MG CAPCR PO SCH (20:41)
[2019-05-24] MEDS: PANTOPRAZOLE SOD 40 MG TABEC PO SCH (20:41)
[2019-05-25] VITALS (8 sets, daily range): BP systolic 114–144; BP diastolic 72–98
[2019-05-25] MEDS: IBUPROFEN 600 MG TAB PO PRN (01:18)
[2019-05-25] MEDS: NS(*) 0.9% 1000 ML BAG 1,000 ML IV PRN (02:11)
[2019-05-25] MEDS ORDERED: NS(*) 0.9% 1000 ML BAG 1,000 ML IV PRN (02:19)
[2019-05-25] MEDS ORDERED: FUROSEMIDE 20 MG/2 ML VIAL IVP ONE (02:20)
[2019-05-25] MEDS ORDERED: LEVALBUTEROL 1.25 MG/3 ML NEB NEB ONE (02:20)
[2019-05-25] MEDS: LEVOTHYROXINE SOD 0.025 MG TAB PO SCH (06:14)
[2019-05-25] MEDS ORDERED: cefTRIAXone 2 GM VIAL IVP SCH (09:00)
[2019-05-25] MEDS: lamoTRIgine 100 MG TAB PO SCH (09:21)
[2019-05-25] MEDS: TOPIRAMATE 100 MG TAB PO SCH (09:21)
[2019-05-25] MEDS: PANTOPRAZOLE SOD 40 MG TABEC PO SCH ×2 (09:21→21:26)
[2019-05-25] MEDS: GABAPENTIN 300 MG CAP PO SCH ×2 (09:21→21:26)
--- NOTE | 2019-05-25 10:00 | NUR ---
Physical Therapy Impression Pt completed ambulation to BR followed by distance of 120' in hallway with one sitting rest break and close W/C follow provided as pt can be very impulsive when she chooses to sit. Pt requested to sit in W/C upon return to room and was positioned to reach call light with brakes on W/C engaged upon PT departure. Pt resides [facility] and notes that she has assistance for housekeeping three times weekly. Pt would also benefit from [facility] services for PT to address strengthening and have assistance with showering initially, as pt notes that she has a tub that may be difficult to access. Physical Therapy Goals 1. Pt to be Mod indep for bed mobility and transfer to sit at EOB with head of bed raised, as pt typically sleeps in recliner. 2. Pt to be Mod indep/SBA for sit to/from stand 3. Pt to ambulate x 100' with least restrictive device and SBA/Mod indep Patient's Goals
[2019-05-25 10:02] LABS: PLATELET COUNT, AUTOMATED 106 K/uL (150-450)
[2019-05-25] MEDS: INSULIN HUM LISPRO 100 UN/ML 3 ML VIAL SUBQ PRN ×3 (12:16→21:25)
[2019-05-25] MEDS: IMIPENEM/CILASTA(*) 500MG VIAL 300 MG in NS(*) 0.9% 100 ML BAG 100 ML IVPB SCH ×2 (12:41→18:14)
--- NOTE | 2019-05-25 12:50 | NUR ---
Occupational Therapy Impression CGA ambulation in room with RW. SBA oral care standing sinkfront [id number]. Min A LB dressing. Pt declined further ADLs. Recommend HomeHealth upon discharge. Occupational Therapy Goals 1) Pt will be SBA UB/LB dressing. 2) Pt will be SBA toilet task. Patient's Goal
[2019-05-25] MEDS: ACETAMINOPHEN 500 MG TAB PO PRN ×2 (13:18→21:26)
--- NOTE | 2019-05-25 13:50 | Hospitalist Progress Note ---
Subjective Progress Notes Subjective No acute events overnight. She did spike a fever last night. It was reported that she was wheezy last night. Patient Complains of: Neurological: No: Confusion, Weakness Cardiovascular: No: Chest Pain, Palpitations Respiratory: No: Congestion, Shortness of Breath Gastrointestinal: No Nausea Musculoskeletal: Other (Chronic pain) Physical Exam Vital Signs Date Time Temp Pulse Resp B/P (MAP) Pulse Ox O2 Delivery O2 Flow Rate FiO2 05/25/19 13:06 92 Nasal Cannula 4.0 05/25/19 11:38 98.3 94 17 128/77 (94) Intake and Output0 05/25/19 01:03 Intake Total 4620 ml Output Total 30 ml Balance 4590 ml Intake Oral 720 ml IV Total 3900 ml Output Urine Total 30 ml # Voids 2 # Bowel Movements 1 General Appearance: Alert, Awake, No Acute Distress Cardiovascular: Regular Rate and Rhythm Respiratory: No Respiratory Distress Psych: Alert & Oriented X3, Appropriate Mood & Affect Result Diagram: 05/25/19 0942 05/25/19 0942 Item Value Date Time Blood Culture - Final Resulted 05/24/19 0407 Blood Blood Culture - Final Resulted 05/24/19 0405 Blood Urine Culture - Preliminary Resulted 05/24/19 0000 Cath Urine Gram Negative Chris Assessment and Plan Problems: (1) Sepsis Status: Acute Assessment & Plan: Secondary to pyelonephritis. Fluid resuscitation started in ED. IV fluids have been continued but slowed to 30cc/hr d/t wheezing and possible fluid overload. Positive Blood and Urine Cultures. Rocephin started in ED and continued on floor. However, she has had prior cultures that have shown a resistance to Rocephin so her antibiotic therapy has been switched to renal dose Primaxin IV. Still waiting on culture sensitivity and will adjust ABX if needed. She was febrile last night, Motrin switched to Tylenol based on kidney function. (2) UTI (urinary tract infection) Assessment & Plan: UA positive for Nitrites, Moderate Leuk. Est, and Moderate bacteria. ABX switched to Renal Dose Primaxin. Will consider adjusting IV ABX pending urine culture results. IV fluids decreased. (3) Acute renal impairment Assessment & Plan: Creat elevated. IV fluids decreased to 30cc due to possible fluid overload. She received 3L IVF in ED. Will continue to monitor. Dc'd Motrin and switched to Tylenol for fever/pain control. (4) DM (diabetes mellitus) Status: Acute Assessment & Plan: Chronic treatment with Levemir and Metformin are on Hold. Will monitor her blood sugar AC/HS and cover her with SSI level 2. (5) Hypothyroid Onset Date: 01/04/2015 Status: Chronic Assessment & Plan: Continue chronic treatment with Levothyroxine. (6) Hypertension Status: Acute Assessment & Plan: Chronic treatment with spironolactone on hold. She has been hypotensive in ED. Will continue to monitor and restart as needed. (7) Bipolar disorder Status: Chronic Assessment & Plan: Will continue chronic treatment with Lamictal and Latuda. (8) Depression Status: Acute Assessment & Plan: Will continue chronic treatment with Cymbalta (9) Migraine Status: Acute Assessment & Plan: Will continue chronic treatment with Topiramate. (10) GERD (gastroesophageal reflux disease) Status: Chronic Assessment & Plan: Chronic treatment with Omeprazole. Will manage with Protonix. Exam Sepsis Risk: No Definite Risk TORRES ALMARAZ May 25, 2019 13:50
[2019-05-25] MEDS: LURASIDONE 40 MG TAB PO SCH (16:38)
[2019-05-25] MEDS: QUEtiapine FUM 100 MG TAB PO SCH (21:26)
[2019-05-25] MEDS: DULoxetine HCL 30 MG CAPCR PO SCH (21:26)
[2019-05-26] MEDS: IMIPENEM/CILASTA(*) 500MG VIAL 300 MG in NS(*) 0.9% 100 ML BAG 100 ML IVPB SCH ×4 (00:01→18:03)
[2019-05-26 03:55] VITALS: BP 117/78
[2019-05-26] MEDS: LEVOTHYROXINE SOD 0.025 MG TAB PO SCH (05:30)
[2019-05-26 06:06] LABS: PLATELET COUNT, AUTOMATED 104 K/uL (150-450)
[2019-05-26 06:46] VITALS: BP 109/82
[2019-05-26] MEDS: INSULIN HUM LISPRO 100 UN/ML 3 ML VIAL SUBQ PRN ×4 (07:36→20:59)
--- NOTE | 2019-05-26 08:48 | Hospitalist Progress Note ---
Subjective Progress Notes Subjective She reports doing very well. No fever. Appetite good. Physical Exam Vital Signs Date Time Temp Pulse Resp B/P (MAP) Pulse Ox O2 Delivery O2 Flow Rate FiO2 05/26/19 07:41 92 Nasal Cannula 4.0 05/26/19 06:46 98.4 96 109/82 (91) 05/26/19 03:55 22 Intake and Output 05/26/19 07:03 Intake Total 390 ml Balance 390 ml Intake Oral 390 ml # Voids 5 General Appearance: Alert, Awake Cardiovascular: Regular Rate and Rhythm Respiratory: Clear to Auscultation GI: Soft and Non-Tender : No CVA Tenderness Extremities: Warm, Perfused Result Diagram: 05/26/19 0505/26/19537 Assessment and Plan Problems: (1) Sepsis Status: Acute Assessment & Plan: Secondary to possible pyelonephritis. IV fluid resuscitation started in ED. Blood and Urine Cultures are growing GNR. She has had prior cultures that have shown a resistance to Rocephin so her antibiotic therapy is currently renal dose Primaxin IV. ID and sensitivities still pending. Will modify antibiotics as needed. (2) UTI (urinary tract infection) Assessment & Plan: UA was not all that impressive, but is the most likely source and culture is growing GNR. Treatment as noted above. (3) Acute renal impairment Assessment & Plan: Creatinine was elevated at admission (1.6). Improved with IV fluids (1.3 today). Will continue to monitor. (4) DM (diabetes mellitus) Status: Acute Assessment & Plan: Will resume Levemir. Continue to hold metformin. Monitor her blood sugar AC/HS and cover her with SSI as needed. (5) Hypothyroid Onset Date: 01/04/2015 Status: Chronic Assessment & Plan: Continue chronic treatment with Levothyroxine. (6) Hypertension Status: Acute Assessment & Plan: BPs have been low normal. Will continue to monitor and restart as needed. (7) Bipolar disorder Status: Chronic Assessment & Plan: Will continue chronic treatment with Lamictal and Latuda. (8) Depression Status: Acute Assessment & Plan: Will continue chronic treatment with Cymbalta (9) Migraine Status: Acute Assessment & Plan: Will continue chronic treatment with Topiramate. (10) GERD (gastroesophageal reflux disease) Status: Chronic Assessment & Plan: Chronic treatment with Omeprazole (Protonix while here). Exam Sepsis Risk: No Definite Risk CARSON SINGH MD May 26, 2019 08:48
[2019-05-26] MEDS: GABAPENTIN 300 MG CAP PO SCH ×2 (09:32→20:56)
[2019-05-26] MEDS: TOPIRAMATE 100 MG TAB PO SCH (09:32)
[2019-05-26] MEDS: lamoTRIgine 100 MG TAB PO SCH (09:33)
[2019-05-26] MEDS: INSULIN DETEMIR 100 U/ML 3 ML PEN SUBQ SCH ×2 (09:33→20:58)
[2019-05-26] MEDS: PANTOPRAZOLE SOD 40 MG TABEC PO SCH ×2 (09:33→20:56)
[2019-05-26 11:45] VITALS: BP 105/85
--- NOTE | 2019-05-26 13:30 | NUR ---
Physical Therapy Impression Patient ambulated ~ 100 feet with FWW with min A and max cuing for direction with walker. Patient was followed with w/c by rehabilitation therapy technician for increased safety due to impulsiveness. Patient was CGA with transfers with max cuing for hand positioning and sequencing and tactile cues for hand placement. Patient was left in room in w/c with call light and brakes locked on w/c and tray table in front of patient. Physical Therapy Goals 1. Pt to be Mod indep for bed mobility and transfer to sit at EOB with head of bed raised, as pt typically sleeps in recliner. 2. Pt to be Mod indep/SBA for sit to/from stand 3. Pt to ambulate x 100' with least restrictive device and SBA/Mod indep Patient's Goals
[2019-05-26 14:28] VITALS: BP 122/80
--- NOTE | 2019-05-26 15:14 | NUR ---
Occupational Therapy Impression Pt alert and agreeable to OT tx. Mod (I) LB dressing. Declined further ADLs. Encouraged pt to discuss concerns regarding discharge home. Asked pt if she feels she is moving as well as before hospital admission. Pt reports "I'm doing even better." Recommend services for assist with ADLs as needed. Occupational Therapy Goals 1) Pt will be SBA UB/LB dressing. 2) Pt will be SBA toilet task. Patient's Goal
[2019-05-26] MEDS: LURASIDONE 40 MG TAB PO SCH (16:54)
[2019-05-26 19:00] VITALS: BP 126/86
[2019-05-26] MEDS: QUEtiapine FUM 100 MG TAB PO SCH (20:56)
[2019-05-26] MEDS: DULoxetine HCL 30 MG CAPCR PO SCH (20:56)
[2019-05-26] MEDS: ACETAMINOPHEN 500 MG TAB PO PRN (20:57)
[2019-05-27] MEDS: IMIPENEM/CILASTA(*) 500MG VIAL 300 MG in NS(*) 0.9% 100 ML BAG 100 ML IVPB SCH ×2 (00:06→05:29)
[2019-05-27 03:35] VITALS: BP 115/75
[2019-05-27] MEDS: LEVOTHYROXINE SOD 0.025 MG TAB PO SCH (05:29)
[2019-05-27 07:26] VITALS: BP 115/75
[2019-05-27 08:07] LABS: PLATELET COUNT, AUTOMATED 119 K/uL (150-450)
[2019-05-27 08:38] VITALS: BP 135/81
[2019-05-27] MEDS: lamoTRIgine 100 MG TAB PO SCH (08:50)
[2019-05-27] MEDS: TOPIRAMATE 100 MG TAB PO SCH (08:50)
[2019-05-27] MEDS: GABAPENTIN 300 MG CAP PO SCH (08:50)
[2019-05-27] MEDS: PANTOPRAZOLE SOD 40 MG TABEC PO SCH (08:50)
[2019-05-27] MEDS: INSULIN DETEMIR 100 U/ML 3 ML PEN SUBQ SCH (08:51)
[2019-05-27] MEDS ORDERED: NYSTATIN 100,000 U/GM PWD 15GM TP SCH (09:00)
--- NOTE | 2019-05-27 10:20 | NUR ---
Physical Therapy Impression Patient was SBA for transfers needed mod A for toileting from accident. Patient instructed in gait training with FWW SBA ~225 feet with one seated rest break. Patient needed min A to lock brakes on w/c before sitting and cuing to reach back for w/c before sitting. Patient transferred from w/c to couch SBA and was left on couch with oxygen on and call light. Physical Therapy Goals 1. Pt to be Mod indep for bed mobility and transfer to sit at EOB with head of bed raised, as pt typically sleeps in recliner. 2. Pt to be Mod indep/SBA for sit to/from stand 3. Pt to ambulate x 100' with least restrictive device and SBA/Mod indep Patient's Goals
--- NOTE | 2019-05-27 10:55 | Hospitalist Progress Note ---
Subjective Progress Notes Subjective She was admitted with UTI and bacteremia. She reports improvement in symptoms. She had no acute events overnight. Patient Complains of: Cardiovascular: No: Chest Pain Respiratory: No: Shortness of Breath Physical Exam Vital Signs Date Time Temp Pulse Resp B/P (MAP) Pulse Ox O2 Delivery O2 Flow Rate FiO2 05/27/19 09:05 97 Nasal Cannula 3.0 05/27/19 08:38 90 20 135/81 (99) 05/27/19 07:26 98.4 Intake and Output 05/27/19 01:03 Intake Total 1000 ml Balance 1000 ml Intake Oral 800 ml IV Total 200 ml # Voids 5 # Bowel Movements 2 General Appearance: Alert, Awake, No Acute Distress, Afebrile Neuro: No Gross deficits Cardiovascular: Regular Rate and Rhythm Respiratory: No Respiratory Distress, Clear to Auscultation GI: Soft and Non-Tender Psych: Alert & Oriented X3, Appropriate Mood & Affect Result Diagram: 05/27/19 0728 05/27/19 0505 Assessment and Plan Problems: (1) Sepsis Status: Acute Assessment & Plan: Secondary to possible pyelonephritis. IV fluid resuscitation started in ED. Blood and Urine Cultures are growing E.Coli. She has had prior cultures that have shown a resistance to Rocephin so her antibiotic therapy was modified to renal dose Primaxin IV. Increased Primaxin dose today, no longer needed to renally dose. ID and sensitivities resulted and will transition to Bactrim for 10 additional days tomorrow. (2) UTI (urinary tract infection) Assessment & Plan: UA was not all that impressive, but is growing E.Coli. Treatment as noted above. (3) Bacteremia Status: Acute Assessment & Plan: E.Coli growing in blood cultures. Recommend two weeks antibiotic treatment. See above plan. (4) Acute renal impairment Status: Acute Assessment & Plan: Creatinine was elevated at admission (1.6). Improved with IV fluids (1.0 today). Will continue to monitor. (5) DM (diabetes mellitus) Status: Acute Assessment & Plan: Will resume Levemir. Continue to hold metformin. Monitor her blood sugar AC/HS and cover her with SSI as needed. (6) Hypothyroid Onset Date: 01/04/2015 Status: Chronic Assessment & Plan: Continue chronic treatment with Levothyroxine. (7) Hypertension Status: Acute Assessment & Plan: BPs have been low normal. Will continue to monitor and restart as needed. (8) Bipolar disorder Status: Chronic Assessment & Plan: Will continue chronic treatment with Lamictal and Latuda. (9) Depression Status: Acute Assessment & Plan: Will continue chronic treatment with Cymbalta (10) Migraine Status: Acute Assessment & Plan: Will continue chronic treatment with Topiramate. (11) GERD (gastroesophageal reflux disease) Status: Chronic Assessment & Plan: Chronic treatment with Omeprazole (Protonix while here). Exam Sepsis Risk: No Definite Risk DEBRA LOPEZ BARIATRIC SURGEON May 27, 2019 10:55
[2019-05-27] MEDS: CILASTA IVPB SCH ×2 (11:45→18:00)
[2019-05-27] MEDS: IMIPENEM IVPB SCH ×2 (11:45→18:00)
[2019-05-27] MEDS: MINI IVPB SCH ×2 (11:45→18:00)
[2019-05-27] MEDS: NS 0.9% IVPB SCH ×2 (11:45→18:00)
[2019-05-27] MEDS: INSULIN HUM LISPRO 100 UN/ML 3 ML VIAL SUBQ PRN ×2 (12:11→17:18)
[2019-05-27] MEDS ORDERED: SULF-198 PO (14:15)
--- NOTE | 2019-05-27 14:21 | Hospitalist Depart ---
Discharge Summary Reason for Hosp/Final Diag: (1) Sepsis Status: Acute Hospital Course & Plan: Secondary to possible pyelonephritis. IV fluid resuscitation started in ED. Blood and Urine Cultures are growing E.Coli. She has had prior cultures that have shown a resistance to Rocephin so her antibiotic therapy was modified to renal dose Primaxin IV. Culture from this admission not resistant to Rocephin. Increased Primaxin dose, no longer needed to renally dose. ID and sensitivities resulted and will transition to Bactrim for 10 additional days. She should follow up within 10 days with PCP with recheck of potassium level, as Bactrim could increase. I have advised patient to stop Spironolactone while taking Bactrim secondary to increased risk of hyperkalemia. (2) UTI (urinary tract infection) Hospital Course & Plan: UA was not all that impressive, but is growing E.Coli. Treatment as noted above. (3) Bacteremia Status: Acute Hospital Course & Plan: E.Coli growing in blood cultures. Recommend two weeks total antibiotic treatment. See above plan. (4) Acute renal impairment Status: Acute Hospital Course & Plan: Creatinine was elevated at admission (1.6). Improved with IV fluids (1.0 today). (5) DM (diabetes mellitus) Status: Acute Hospital Course & Plan: Will resume Levemir and resume metformin. (6) Hypothyroid Onset Date: 01/04/2015 Status: Chronic Hospital Course & Plan: Continue chronic treatment with Levothyroxine. (7) Hypertension Status: Acute Hospital Course & Plan: BPs have been low normal. (8) Bipolar disorder Status: Chronic Hospital Course & Plan: Will continue chronic treatment with Lamictal and Latuda. (9) Depression Status: Acute Hospital Course & Plan: Will continue chronic treatment with Cymbalta (10) Migraine Status: Acute Hospital Course & Plan: Will continue chronic treatment with Topiramate. (11) GERD (gastroesophageal reflux disease) Status: Chronic Hospital Course & Plan: Chronic treatment with Omeprazole (Protonix while here). Departure Latest Vital Signs Vital Signs 05/27/19 05/27/19 05/27/19 07:26 08:38 09:05 Temp 98.4 Pulse 90 Resp 20 B/P (MAP) 135/81 (99) Pulse Ox 97 O2 Delivery Nasal Cannula O2 Flow Rate 3.0 Weight (Pounds): 304 Weight (Ounces): 6.0 Result Diagram: 05/27/19 0728 05/27/19 7750 Condition: Improved PT/OT Follow Up For: PT For Strengthening, OT For ADL's, PT Evaluation and Treat, OT Evaluation and Treat Home Health [facility] Follow Up For: ADL Assistance Discharge Instructions Home Meds Active Scripts Sulfamethoxazole/Trimet 800-160 Mg Tab (BACTRIM DS TABLET) 1 Each Tablet, 1 TAB PO Q12H for 10 Days, #20 TAB Prov:DEBRA LOPEZ 05/27/19 Lancets (ACCU-CHEK FASTCLIX) 1 Each Each, EACH MC DAILY, #100 3 Refills Use to test blood sugar daily Prov:SHERON PEARL APRNP-C 04/30/19 Ibuprofen (IBUPROFEN) 600 Mg Tablet, 1 TAB PO BID PRN for PAIN, #30 TAB 0 Refills Prov:SHERON PEARL APRN-C 04/29/19 Furosemide (LASIX) 20 Mg Tablet, 1 TAB PO DAILY for leg swelling, #10 TAB Prov:AELXA FRANKEL DO 04/25/19 Oxybutynin Chloride (OXYBUTYNIN CHLORIDE) 5 Mg Tablet, 1 TAB PO BID, #180 TAB 0 Refills Prov:SHERON PEARL APRNP-C 03/30/19 Levothyroxine Sodium (LEVOTHYROXINE SODIUM) 25 Mcg Tablet, 1 TAB PO QDAY, #90 TAB 0 Refills Prov:SHERON PEARL APRN-C 03/11/19 Gabapentin (GABAPENTIN) 600 Mg Tablet, 1 TAB PO BID, #180 TAB 1 Refill Prov:SHERON PEARL APRNP-C 02/26/19 Metformin Hcl (METFORMIN HCL) 500 Mg Tablet, 1 TAB PO BID, #180 TAB 1 Refill Prov:SHERON PEARL APRN-C 11/27/18 Quetiapine Fumarate (SEROQUEL) 200 Mg Tablet, 1 TAB PO QHS, #5 TAB 0 Refills Prov:SHERON PEARL APRNP-C 08/14/18 NYSTATIN 251472 UNT/ML Topical Cream (NYSTATIN 870503 UNT/ML Topical Cream) 15 Gm Cream..g., 1 AN TP BID, #60 GM 2 Refills Apply to rash under breasts until resolved Prov:SHERON PEARL APRN 06/16/18 Insulin Detemir 100 UN/ML PEN (Levemir Flextouch) 100 Unit/1 Ml Insuln.pen, 40 UNITS SUBQ DAILY, #1 BOX 10 Refills Prov:SHERON PEARL APRN 11/17/17 Duloxetine Hcl (CYMBALTA) 60 Mg Capsule., 1 CAP PO QDAY, #90 CAP 1 Refill Prov:SHERON PEARL APRN 10/10/17 Blood Sugar Diagnostic (BLOOD GLUCOSE TEST STRIP) 1 Each Strip, 1 STRIP MC DAILY, #30 BOT 4 Refills Prov:SHERON PEARL APRN 06/02/17 Reported Medications Omeprazole (OMEPRAZOLE) 40 Mg Capsule.dr, 1 CAP PO BID, CAP take 30 minutes before eating 05/24/19 Lurasidone Hcl (LATUDA) 60 Mg Tablet, 1 TAB PO DAILY 09/12/18 Lamotrigine (LAMOTRIGINE) 100 Mg Tablet, 1 TAB PO QAM 10/10/16 Topiramate (TOPIRAMATE) 100 Mg Tablet, 1 TAB PO QAM for migraines 10/10/16 Discontinued Reported Medications Blood-Glucose Meter (ACCU-CHEK PABLO PLUS) 1 Each Each, EACH MC, #1 05/24/19 Discontinued Scripts Cephalexin Monohydrate (CEPHALEXIN) 500 Mg Cap, 500 MG PO TID for infection, #20 CAP TAKE 1 CAPSULE BY MOUTH EVERY SIX HOURS Prov:ALEXA FRANKEL DO 04/25/19 Spironolactone (SPIRONOLACTONE) 25 Mg Tablet, 1 TAB PO DAILY, #90 TAB 1 Refill Prov:SHERON PEARL APRN 11/26/18 [Repair Lift Chair] No Conflict Check Prov:SHERON PEARL APRN 05/04/19 Omeprazole (OMEPRAZOLE) 40 Mg Capsule., 40 MG PO BID, #180 CAP 2 Refills Prov:SHERON PEARL APRN 04/29/19 [Incontinence Supplie] No Conflict Check Prov:SHERON PEARL APRN 11/06/18 [Glucometer] No Conflict Check Prov:SHERON PEARL APRN 11/06/18 Diet: Diabetic Activity: As Tolerated Special Instructions: Take antibiotics until gone. Follow up with Sheron QIU within one week. Copies to: SHERON PEARL APRN ; Venous Thromboembolism Antithrombotics Is Pt On Any Antithrombotics?: No [id number] Certification Face to Face Home Health Certification Patient's Primary Care Provider: Sheron Pearl Aprn Institutional Provider conducted the [id number] encounter. Electronic Undersigning Physician Certifies Home Health. I certify that the patient has been under my care and that I had a [id number] encounter that meets the physician [id number] encounter requirements with this patient. This patient is home-bound due to safety issues and continues to require assistance with ADL's. I certify that based on my findings, that Nursing, Aides and the following Home Health services are medically necessary: Medical Necessity: Nursing, Rehab Date Face to Face Conducted: May 27, 2019 DEBRA LOPEZ May 27, 2019 14:21
[2019-05-27] MEDS ORDERED: TRIMETH/SULFA DS 160-800MG TAB PO ONE (14:30)
[2019-05-27 15:44] VITALS: BP 143/82
[2019-05-27] MEDS: LURASIDONE 40 MG TAB PO SCH (17:20)
== END 2019-05-27 15:55 | disposition home or self-care (01) | DRG 872 ==
LOC: ER 03:56 → MED 09:10
PROVIDERS: ADMIT Family Medicine; ATTEND Family Medicine
DX: A41.51 Sepsis due to Escherichia coli [E. coli] (principal); N12 Tubulo-interstitial nephritis, not specified as acute or chronic; N39.0 Urinary tract infection, site not specified; N17.9 Acute kidney failure, unspecified; E11.65 Type 2 diabetes mellitus with hyperglycemia; I10 Essential (primary) hypertension; K21.9 Gastro-esophageal reflux disease without esophagitis; F31.9 Bipolar disorder, unspecified; E03.9 Hypothyroidism, unspecified; G43.909 Migraine, unspecified, not intractable, without status migrainosus; Z79.84 Long term (current) use of oral hypoglycemic drugs; Z79.4 Long term (current) use of insulin; Z88.5 Allergy status to narcotic agent; Z88.8 Allergy status to other drugs, medicaments and biological substances
CPT/HCPCS: 36415; 36416; 71045; 81001; 82040; 82247; 82310; 82374; 82435; 82550; 82565; 82947; 82948; 83605; 84075; 84132; 84155; 84295; 84450; 84460; 84520; 85025; 87040; 87077; 87088; 87186; 94640; 96361; 96374; 97161; 97166; 99284; J0696; J0743; J1815; J1940; J7030; J7050

== ENCOUNTER → 2019-05-24 | Outpatient (CLI) | payer MEDICARE, MEDICAID ==
[~2019-05-24] MED LIST changes: +BLOO-1492 MC; +FURO20TA19 PO; +[UNRECOGNIZED DRUG - CODE] MC; +[UNRECOGNIZED DRUG - SUPPLY]
== END ==
LOC: AMB 03:20
PROVIDERS: ATTEND Nurse Practitioner
DX: R06.00 Dyspnea, unspecified (principal); R09.02 Hypoxemia; R50.9 Fever, unspecified
CPT/HCPCS: A0425; A0427

== ENCOUNTER → 2019-06-10 | Outpatient (CLI) | payer MEDICARE, MEDICAID ==
[~2019-06-10] MED LIST changes: +BLOO-1492 MC; +OXYGENHOME INH
[2019-06-10 08:47] LABS: PLATELET COUNT, AUTOMATED 248 K/uL (150-450)
== END ==
LOC: LAB 08:03
PROVIDERS: ATTEND Nurse Practitioner Family
DX: R71.8 Other abnormality of red blood cells (principal); E78.5 Hyperlipidemia, unspecified; E11.65 Type 2 diabetes mellitus with hyperglycemia; N39.0 Urinary tract infection, site not specified
CPT/HCPCS: 36415; 81001; 82040; 82247; 82310; 82374; 82435; 82465; 82565; 82728; 82947; 83036; 83540; 83550; 83718; 84075; 84132; 84155; 84295; 84443; 84450; 84460; 84478; 84520; 85025